=== PATIENT | female | born 1970 | race Caucasian/White ===

== ENCOUNTER 2017-04-13 12:21 | Inpatient (IN) | payer MEDICARE, BC ==
[~2017-04-13] VITALS: Ht 177.8 cm; Wt 90.2 kg
[2017-04-13] MEDS ORDERED: ONDANSETRON 4 MG TAB (S0181) PO PRN (13:15)
[2017-04-13 15:00] VITALS: BP 155/81
[2017-04-13 15:21] LABS: BASO % 0.7 % (0.0-1.0); EOS # 0.2 K/mm3 (0.0-0.50); EOS % 2.6 % (0.0-3.0); LARGE UNSTAINED CELL # 0.1 K/mm3 (0.0-0.4); LARGE UNSTAINED CELL % 1.7 % (0.0-4.0); LYMPH # 0.8 K/mm3 (1.5-4.5); LYMPH % 11.5 % (24.0-44.0); MEAN CORPUSCULAR HEMOGLOBIN 29.9 pg (27.0-33.0); MEAN CORPUSCULAR HGB CONC 32.3 g/dl (32.0-36.5); MEAN CORPUSCULAR VOLUME 92.6 fl (80.0-96.0); MONO # 0.3 K/mm3 (0.0-0.8); MONO % 5.1 % (0.0-5.0); NEUTROPHILS % 78.4 % (36.0-66.0); PLATELET COUNT, AUTOMATED 150 k/mm3 (150-450); WHITE BLOOD COUNT 6.4 K/mm3 (4.0-10.0)
[2017-04-13 15:31] LABS: ALBUMIN 3.2 GM/DL (3.2-5.2); ALBUMIN/GLOBULIN RATIO 0.57 (1.00-1.93); BILIRUBIN,TOTAL 0.4 MG/DL (0.2-1.0); CALCIUM LEVEL 10.7 MG/DL (8.5-10.1); CREATININE FOR GFR 4.5 MG/DL (0.55-1.02); GLOMERULAR FILTRATION RATE 11.1 (>58); POTASSIUM SERUM 3.6 MEQ/L (3.5-5.1); TOTAL PROTEIN 8.8 GM/DL (6.4-8.2)
[2017-04-13] MEDS ORDERED: SENS90TA PO (15:59)
[2017-04-13] MEDS ORDERED: MIRA3350 PO (15:59)
[2017-04-13] MEDS ORDERED: DRIS50002 PO (15:59)
[2017-04-13] MEDS ORDERED: FOLI1TAB2 PO (15:59)
[2017-04-13] MEDS ORDERED: XANA0.25 PO (15:59)
[2017-04-13] MEDS ORDERED: MIDO5TA PO (15:59)
[2017-04-13] MEDS ORDERED: FOSR1000 PO (15:59)
[2017-04-13] MEDS ORDERED: SODI15SS PO (15:59)
[2017-04-13] MEDS ORDERED: COUM2TAB10 PO (15:59)
[2017-04-13] MEDS ORDERED: ACET50TAOT PO (15:59)
[2017-04-13] MEDS ORDERED: LIDO5DIS36 TD (15:59)
[2017-04-13] MEDS ORDERED: TRAZ100T4 PO (15:59)
[2017-04-13] MEDS ORDERED: COLA100C3 PO (15:59)
[2017-04-13] MEDS ORDERED: VELP5CHW PO (15:59)
[2017-04-13] MEDS ORDERED: GABA-279 PO (15:59)
[2017-04-13] MEDS ORDERED: OXYC30TA84 PO (15:59)
[2017-04-13] MEDS ORDERED: MUPI2OI EXT (15:59)
[2017-04-13] MEDS ORDERED: ACETAMINOPHEN 500 MG TAB PO PRN (16:30)
[2017-04-13] MEDS ORDERED: oxyCODONE 5MG TAB PO PRN (16:30)
[2017-04-13] MEDS: oxyCODONE 5MG TAB PO SCH ×2 (16:38→21:38)
[2017-04-13] MEDS: ALPRAZolam 0.25 MG TAB PO SCH ×2 (16:38→21:38)
[2017-04-13] MEDS: ACETAMINOPHEN 500 MG TAB PO SCH ×2 (16:39→21:38)
[2017-04-13] MEDS: **NOTE PATIENT COMMENT** MISC XX SCH (21:00)
[2017-04-13] MEDS: GABAPENTIN 100 MG CAP PO SCH (21:00)
[2017-04-13] MEDS: CINACALCET 30 MG TAB (SENSIPAR) PO SCH (21:00)
[2017-04-13] MEDS: traZODone 100 MG TAB PO SCH (21:00)
[2017-04-13 22:00] VITALS: BP 145/77
[2017-04-13] MEDS ORDERED: MUPIROCIN 2% OINT 22 GM TUBE TOP PRN (22:15)
[2017-04-13] MEDS ORDERED: MIRALAX *UNIT DOSE* 17GM PACKET PO PRN (22:15)
[2017-04-13] MEDS ORDERED: traZODone 100 MG TAB PO PRN (22:15)
[2017-04-14 06:00] VITALS: BP 115/60
[2017-04-14] MEDS: oxyCODONE 5MG TAB PO SCH ×3 (06:12→18:40)
[2017-04-14] MEDS: ACETAMINOPHEN 500 MG TAB PO SCH ×3 (06:13→18:39)
[2017-04-14] MEDS: ALPRAZolam 0.25 MG TAB PO SCH ×3 (06:13→18:39)
[2017-04-14] MEDS: SUCROFERRIC OXYHYDROXIDE 500MG CHEW TAB (VELPHORO) PO SCH ×3 (07:58→21:00)
[2017-04-14] MEDS: LANTHANUM CARBONATE 500 MG CHEW TABLET PO SCH ×3 (07:58→21:00)
[2017-04-14] MEDS: LIDOCAINE 5% (LIDODERM) PATCH TD SCH (08:39)
[2017-04-14] MEDS: GABAPENTIN 100 MG CAP PO SCH ×2 (09:00→21:02)
[2017-04-14] MEDS: FOLIC ACID 1 MG TAB PO SCH (09:00)
[2017-04-14] MEDS ORDERED: GABAPENTIN 100 MG CAP PO SCH (09:00)
[2017-04-14] MEDS: DOCUSATE SODIUM 100 MG CAP PO SCH (09:00)
[2017-04-14 14:00] VITALS: BP 159/77
[2017-04-14] MEDS ORDERED: BUPIVACAINE HCL 0.5% 30 ML VIAL As Ordered ONE (14:49)
[2017-04-14] MEDS ORDERED: LIDOCAINE 1% SDV INJ 30 ML VIAL As Ordered ONE (14:49)
[2017-04-14] MEDS ORDERED: MIDAZOLAM INJ 2 MG/2 ML VIAL (J2250) As Ordered ONE ×2 (16:27→17:24)
[2017-04-14] MEDS ORDERED: PROPOFOL 200 MG/20 ML VIAL As Ordered ONE (16:27)
[2017-04-14] MEDS ORDERED: ONDANSETRON 4MG/2ML VIAL (J2405) As Ordered ONE (16:27)
[2017-04-14] MEDS ORDERED: fentaNYL 100 MCG/2 ML INJECTION (J3010) As Ordered ONE ×3 (16:27→17:24)
[2017-04-14] MEDS ORDERED: LIDOCAINE 2% INJ 100 MG/5 ML SDV (FOR ANES.) As Ordered ONE (16:27)
[2017-04-14] MEDS: NS 1,000 ML IV SCH ×2 (16:32→17:15)
[2017-04-14] MEDS: fentaNYL 100 MCG/2 ML INJECTION (J3010) IV PRN ×4 (16:35→16:50)
[2017-04-14] MEDS ORDERED: VANCOMYCIN HCL 1,000 MG, VIAL MATE ADAPTER 1 EACH in D5W 250 ML IV SCH (16:45)
[2017-04-14] MEDS ORDERED: HYDROmorphone HCL 1 MG/ML SYRINGE (J1170) As Ordered ONE (16:58)
[2017-04-14] MEDS ORDERED: oxyCODONE 5MG TAB As Ordered ONE ×2 (16:58→17:20)
[2017-04-14] MEDS: HYDROmorphone HCL 1 MG/ML SYRINGE (J1170) IV PRN ×5 (17:00→17:20)
[2017-04-14] MEDS: oxyCODONE 5MG TAB PO PRN ×2 (17:00→17:20)
[2017-04-14] MEDS ORDERED: ONDANSETRON 4MG/2ML VIAL (J2405) IV PRN (17:15)
[2017-04-14 18:30] VITALS: BP 148/67
[2017-04-14] MEDS: **NOTE PATIENT COMMENT** MISC XX SCH (21:00)
[2017-04-14] MEDS: traZODone 100 MG TAB PO SCH (21:02)
[2017-04-14 22:00] VITALS: BP 119/70
[2017-04-14] MEDS: NORCO, ANEXSIA 5/325MG TABLET (HYDROcodone/ACETAMINOPHEN) PO PRN (23:53)
[2017-04-15 06:00] VITALS: BP 116/63
[2017-04-15] MEDS: ALPRAZolam 0.25 MG TAB PO SCH ×3 (06:16→20:38)
[2017-04-15] MEDS: ACETAMINOPHEN 500 MG TAB PO SCH ×3 (06:16→20:38)
[2017-04-15] MEDS: oxyCODONE 5MG TAB PO SCH ×3 (06:17→20:41)
[2017-04-15] MEDS ORDERED: MIDODRINE 5 MG TAB PO SCH (08:00)
[2017-04-15] MEDS: GABAPENTIN 100 MG CAP PO SCH ×2 (08:18→20:37)
[2017-04-15] MEDS: DOCUSATE SODIUM 100 MG CAP PO SCH (08:18)
[2017-04-15] MEDS: FOLIC ACID 1 MG TAB PO SCH (08:18)
[2017-04-15] MEDS: LIDOCAINE 5% (LIDODERM) PATCH TD SCH (08:20)
[2017-04-15] MEDS: LANTHANUM CARBONATE 500 MG CHEW TABLET PO SCH ×3 (08:21→20:42)
[2017-04-15] MEDS: SUCROFERRIC OXYHYDROXIDE 500MG CHEW TAB (VELPHORO) PO SCH ×3 (09:00→20:41)
[2017-04-15 10:11] LABS: BASO # 0.1 K/mm3 (0.0-0.2); BASO % 0.9 % (0.0-1.0); EOS # 0.3 K/mm3 (0.0-0.50); EOS % 4.1 % (0.0-3.0); LARGE UNSTAINED CELL # 0.1 K/mm3 (0.0-0.4); LARGE UNSTAINED CELL % 1.4 % (0.0-4.0); LYMPH # 0.7 K/mm3 (1.5-4.5); LYMPH % 11.1 % (24.0-44.0); MEAN CORPUSCULAR HEMOGLOBIN 30.1 pg (27.0-33.0); MEAN CORPUSCULAR VOLUME 91.1 fl (80.0-96.0); MONO # 0.3 K/mm3 (0.0-0.8); MONO % 4.2 % (0.0-5.0); NEUTROPHILS % 78.3 % (36.0-66.0); PLATELET COUNT, AUTOMATED 152 k/mm3 (150-450); RED CELL DISTRIBUTION WIDTH 14.7 % (11.5-14.5); WHITE BLOOD COUNT 6.3 K/mm3 (4.0-10.0)
[2017-04-15 11:21] LABS: ALBUMIN 2.6 GM/DL (3.2-5.2); CALCIUM LEVEL 9.9 MG/DL (8.5-10.1); CREATININE FOR GFR 7.63 MG/DL (0.55-1.02); PHOSPHORUS LEVEL 6.3 MG/DL (2.5-4.9); POTASSIUM SERUM 4.3 MEQ/L (3.5-5.1)
[2017-04-15] MEDS: NORCO, ANEXSIA 5/325MG TABLET (HYDROcodone/ACETAMINOPHEN) PO PRN (11:41)
[2017-04-15] MEDS ORDERED: HEPARIN 1,000 UNITS/ML 10ML VIAL (FOR RADIOLOGY& DIALYSIS ONLY) IV ONE (11:45)
[2017-04-15] MEDS: NS 1,000 ML IV SCH ×2 (13:15→17:15)
[2017-04-15 14:00] VITALS: BP 142/76
[2017-04-15] MEDS ORDERED: CHECK TO SEE IF PATIENT IS RECEIVING DIALYSIS TODAY AND REFER TO THE VANCOMYCIN ORDER XX SCH (16:00)
[2017-04-15] MEDS: traZODone 100 MG TAB PO SCH (20:37)
[2017-04-15] MEDS: CINACALCET 30 MG TAB (SENSIPAR) PO SCH (20:38)
[2017-04-15] MEDS: **NOTE PATIENT COMMENT** MISC XX SCH (20:56)
[2017-04-15 22:00] VITALS: BP 134/70
[2017-04-16] MEDS: ALPRAZolam 0.25 MG TAB PO SCH (05:42)
[2017-04-16] MEDS: ACETAMINOPHEN 500 MG TAB PO SCH (05:42)
[2017-04-16] MEDS: oxyCODONE 5MG TAB PO SCH (05:43)
[2017-04-16 06:00] VITALS: BP 125/65
[2017-04-16] MEDS: LANTHANUM CARBONATE 500 MG CHEW TABLET PO SCH (09:00)
[2017-04-16] MEDS: LIDOCAINE 5% (LIDODERM) PATCH TD SCH (09:00)
[2017-04-16] MEDS: SUCROFERRIC OXYHYDROXIDE 500MG CHEW TAB (VELPHORO) PO SCH (09:00)
[2017-04-16] MEDS: GABAPENTIN 100 MG CAP PO SCH (09:01)
[2017-04-16] MEDS: DOCUSATE SODIUM 100 MG CAP PO SCH (09:01)
[2017-04-16] MEDS: NORCO, ANEXSIA 5/325MG TABLET (HYDROcodone/ACETAMINOPHEN) PO PRN (09:01)
[2017-04-16] MEDS: FOLIC ACID 1 MG TAB PO SCH (09:01)
[2017-04-16] MEDS ORDERED: VANC1VLAD INJ (10:43)
[2017-04-16] MEDS ORDERED: VANC1INJ IV (10:43)
[2017-04-19] MEDS ORDERED: VITAMIN D 50,000 UNITS CAPSULE (ERGOCALCIFEROL 1.25MG) PO SCH (09:00)
== END 2017-04-16 11:55 | disposition home or self-care (01) | DRG 264 ==
LOC: M MS5PR 14:37 → INTOOBSV 14:37 → OBSVTOIN 04-15 14:10
PROVIDERS: ADMIT Surgery Vascular Surgery; ATTEND Surgery Vascular Surgery
PROC: 0JBD0ZZ Excision of Right Upper Arm Subcutaneous Tissue and Fascia, Open Approach (ICD-10-PCS; 2017-04-14)
PROC: 03PY0JZ Removal of Synthetic Substitute from Upper Artery, Open Approach (ICD-10-PCS; principal; 2017-04-14 13:00)
PROC: 5A1D60Z (ICD-10-PCS; 2017-04-15)
DX: T82.7XXA Infection and inflammatory reaction due to other cardiac and vascular devices, implants and grafts, initial encounter (principal); N18.6 End stage renal disease; I12.0 Hypertensive chronic kidney disease with stage 5 chronic kidney disease or end stage renal disease; N25.81 Secondary hyperparathyroidism of renal origin; L03.113 Cellulitis of right upper limb; D63.1 Anemia in chronic kidney disease; I95.89 Other hypotension; G89.4 Chronic pain syndrome; B95.61 Methicillin susceptible Staphylococcus aureus infection as the cause of diseases classified elsewhere; E66.9 Obesity, unspecified; Z87.891 Personal history of nicotine dependence; Z88.5 Allergy status to narcotic agent; Z99.2 Dependence on renal dialysis; Z79.01 Long term (current) use of anticoagulants; Z79.899 Other long term (current) drug therapy; Z79.891 Long term (current) use of opiate analgesic

== ENCOUNTER → 2017-05-14 | Outpatient (CLI) | payer MEDICARE, BC ==
[~2017-05-14] MED LIST: ACET50TAOT PO; COLA100C5 PO; COUM2TAB22 PO; DRIS50002 PO; FOLI1TAB4 PO; FOSR1000 PO; GABA-279 PO; LIDO5DIS41 TD; MIDO5TA PO; MIRA3350 PO; MUPI2OI EXT; OXYC30TA84 PO; SENS90TA PO; SODI15SS PO; TRAZ-136 PO; VANC1INJ IV; VANC1VLAD INJ; VELP5CHW PO; XANA0.25 PO
--- NOTE | 2017-05-14 13:45 | REP ---
ARTERIAL AND VENOUS ULTRASOUND BILATERAL UPPER EXTREMITIES: HISTORY: Renal failure. Bilateral upper extremity vein mapping and arterial analysis for arteriovenous fistula planning. The patient is status post recent removal of a right upper extremity graft. There are two thrombosed grafts in the left upper extremity. FINDINGS: There is no evidence of intravascular venous thrombosis in the subclavian, brachial, basilic, cephalic veins of either upper extremity on two-dimensional and color Doppler interrogation. There is a soft tissue tract in the right upper extremity which extends into the right axillary vein region related to the recently removed right upper extremity graft. There is some thrombus along this tract just outside of the axillary vein but no intravenous thrombus is seen. There is questionable thrombus in the cephalic vein at the antecubital fossa and upper forearm on the right. The right cephalic vein measures 2.8 mm at the upper humerus where as the left measures 1.2 mm. The left basilic vein measures 4.1 mm proximally to 2.0 mm at the antecubital fossa and 0.8 mm in the forearm. Two thrombosed grafts are seen in the left forearm. A normal triphasic arterial flow is seen in the right axillary and right brachial arteries. The axillary artery is 5-9 mm and the brachial artery is 6 mm in diameter. Peak systolic flow velocity is 39 cm/s in the axillary and 29 cm/s in the brachial on the right side. On the left side normal triphasic flow is seen in the axillary, brachial, radial and ulnar arteries. Axillary artery peak systolic flow velocity is 57 cm/s, brachial is 62.8 cm/s, radial 32.3 and ulnar 18.4 cm/sec. Axillary artery measures 4.4 mm, brachial artery 3.7, radial 2.2 and ulnar 1.8 mm. IMPRESSION: Chronic changes suspected in the left cephalic vein with slow flow and some wall thickening. No venous thrombosis seen. Soft tissue tract noted related to the recently removed right upper arm shunt. Thrombosed shunts seen on the left. Signed by Leonel Farris MD 05/14/2017 05:12 P
== END ==
LOC: M RAD 06:45
PROVIDERS: ATTEND Surgery Vascular Surgery
DX: T82.868A Thrombosis due to vascular prosthetic devices, implants and grafts, initial encounter (principal); Y83.1 Surgical operation with implant of artificial internal device as the cause of abnormal reaction of the patient, or of later complication, without mention of misadventure at the time of the procedure; N18.6 End stage renal disease

== ENCOUNTER → 2017-05-26 | Day surgery (SDC) | payer MEDICARE, BC ==
[~2017-05-26] VITALS: Ht 177.8 cm; Wt 83.9 kg
[~2017-05-26] MED LIST changes: +BUPIVACAINE HCL 0.25% 30 ML VIAL As Ordered ONE; +BUPIVACAINE HCL 0.5% 30 ML VIAL As Ordered ONE; +D5W/0.2% SODIUM CHLORIDE 250 ML IV ONE; +D5W/0.9% SODIUM CHLORIDE 1,000 ML IV SCH; +HEPARIN SOD (PORCINE) 5000 UNITS/ML VIAL As Ordered ONE; +ISOVUE-300 61% 50ML VIAL (Q9967) As Ordered ONE; +LIDOCAINE 1% SDV INJ 30 ML VIAL As Ordered ONE; +LIDOCAINE 2% INJ 100 MG/5 ML SDV (FOR ANES.) As Ordered ONE; +MIDAZOLAM INJ 2 MG/2 ML VIAL (J2250) As Ordered ONE; +ONDANSETRON 4MG/2ML VIAL (J2405) As Ordered ONE; +PHENYLephrine HCL 500 MCG/5 ML (100MCG/ML) SYRINGE (J2370) As Ordered ONE; +PROPOFOL 200 MG/20 ML VIAL As Ordered ONE; +THROMBIN SOLN 20,000 UNITS KIT As Ordered ONE; +fentaNYL 250 MCG/5 ML INJECTION (J3010) As Ordered ONE
[2017-05-26 12:36] LABS: INR 1.64
[2017-05-26 16:00] VITALS: BP 149/76
--- NOTE | 2017-05-27 15:19 | ECGEPIP ---
Stationary ECG Study [facility] Test Date: 2017-05-26 Pat Name: FLOERNTIN BAL Department: Room: - Gender: F Legislative Correspondent: : 1970 Requested By: Lynn Meredith Order Number: [id number] Reading MD: Moses Penny Measurements Intervals [place] Rate: 80 P: 57 ID: [id number] QRS: 41 QRSD: 93 T: 41 QT: 378 QTc: 438 Interpretive Statements SINUS RHYTHM WITH FIRST DEGREE AV BLOCK No prior ECG available for comparison at the time of interpretation. Electronically Signed On 05-27-2017 15:19:17 EDT by Moses Penny
--- NOTE | 2017-06-22 17:34 | RO ---
DATE OF PROCEDURE: 05/26/2017 PREPROCEDURE DIAGNOSIS: End-stage renal disease. POSTPROCEDURE DIAGNOSIS: End-stage renal disease PROCEDURE: Left brachial artery exploration, left cephalic vein exploration at the antecubital fossa, left radiocephalic arteriovenous fistula formation. SURGEON: Dr. María Gunderson CLOUD PHYSICIST: None. ANESTHESIA: Local MAC. ESTIMATED BLOOD LOSS: 25 mL. IV FLUID: 200 mL HEPARIN: None. COMPLICATIONS: None. INDICATION: The patient is a 46-year-old female with multiple accesses created in the upper extremities bilaterally, who requires access for hemodialysis and now current dialyzes through a right internal jugular vein PermCath. The patient underwent ultrasound, which showed the cephalic vein in the left upper arm and forearm to be patent. The patient will undergo a left brachiocephalic arteriovenous fistula. Risks, benefits and alternative treatment options were discussed with the patient. Alternative treatment options included but were not limited to no intervention. Benefits included but were not limited to conversion from PermCath to arteriovenous fistula usage with reduction of risks of PermCath. Risks included but were not limited to infection, bleeding, failure of arteriovenous fistula to maintain patency with thrombosis, failure of arteriovenous fistula to mature requiring secondary intervention, cerebrovascular accident, myocardial infarction, steal syndrome, pulmonary embolus, deep vein thrombosis (DVT), loss of limb, loss of life and poor outcome. The patient understands, accepts these risks and consents to proceed. DESCRIPTION OF PROCEDURE: The patient was taken to the operating room, placed supine on the operating room table and the left upper extremity was prepped and draped in a standard surgical fashion. A surgical time-out was completed with myself and all the members in the room, confirming the correct patient, laterality and procedure. The skin overlying the brachial artery and cephalic vein at the antecubital fossa were then anesthetized with 1% lidocaine mixed with half percent Marcaine. An incision was made transversely, and the brachial artery and cephalic vein were explored. There had been a previous left brachiocephalic arteriovenous fistula and the cephalic vein was sclerotic and unusable for access creation. A tourniquet had been applied to evaluate the cephalic vein, and there was a cephalic vein at the wrist which was patent but small in size. An incision was then made at the wrist with two incisions made, one over the cephalic vein, one over the radial artery. Both were dissected free. The cephalic vein was transected as far distal as possible and dilated with heparinized saline, brought through a tunnel between the two incisions and anastomosed to the radial artery in an end-to-side fashion. There was good flow in the fistula at the completion of the anastomosis. The incisions were then closed using #2-0 Vicryl to approximate the deeper layers and #3-0 Monocryl to approximate the skin in a running subcuticular fashion. Steri-Strips and dressings were applied. The patient tolerated the procedure well. All instrument, sponge and needle counts were correct at the end of the case. There were no complications. Dr. Gunderson was present for and directed the entire case. The patient was transferred to the recovery room awake, alert, extubated and in stable condition.
== END | disposition home or self-care (01) ==
LOC: M SDC 11:48
PROVIDERS: ATTEND Surgery Vascular Surgery
DX: N18.6 End stage renal disease (principal); I12.0 Hypertensive chronic kidney disease with stage 5 chronic kidney disease or end stage renal disease; E11.22 Type 2 diabetes mellitus with diabetic chronic kidney disease; I25.10 Atherosclerotic heart disease of native coronary artery without angina pectoris; Z88.5 Allergy status to narcotic agent; Z79.899 Other long term (current) drug therapy; Z79.01 Long term (current) use of anticoagulants; Z86.14 Personal history of Methicillin resistant Staphylococcus aureus infection
CPT/HCPCS: 36415; 36825; 84132; 85610; 93005; J2250; J2370; J2405; J3010

== ENCOUNTER 2017-06-10 08:20 | Day surgery (SDC) | payer MEDICARE, BC ==
[~2017-06-10] VITALS: Ht 177.8 cm; Wt 84.0 kg
[~2017-06-10 08:20] MED LIST changes: -BUPIVACAINE HCL 0.25% 30 ML VIAL As Ordered ONE; -BUPIVACAINE HCL 0.5% 30 ML VIAL As Ordered ONE; -D5W/0.2% SODIUM CHLORIDE 250 ML IV ONE; -D5W/0.9% SODIUM CHLORIDE 1,000 ML IV SCH; -HEPARIN SOD (PORCINE) 5000 UNITS/ML VIAL As Ordered ONE; -ISOVUE-300 61% 50ML VIAL (Q9967) As Ordered ONE; -LIDOCAINE 1% SDV INJ 30 ML VIAL As Ordered ONE; -LIDOCAINE 2% INJ 100 MG/5 ML SDV (FOR ANES.) As Ordered ONE; -MIDAZOLAM INJ 2 MG/2 ML VIAL (J2250) As Ordered ONE; -ONDANSETRON 4MG/2ML VIAL (J2405) As Ordered ONE; -PHENYLephrine HCL 500 MCG/5 ML (100MCG/ML) SYRINGE (J2370) As Ordered ONE; -PROPOFOL 200 MG/20 ML VIAL As Ordered ONE; -THROMBIN SOLN 20,000 UNITS KIT As Ordered ONE; -fentaNYL 250 MCG/5 ML INJECTION (J3010) As Ordered ONE
[2017-06-10] MEDS ORDERED: LIDOCAINE 1% MDV 20ML VIAL SQ ONE (08:30)
[2017-06-10] MEDS ORDERED: LR 1,000 ML IV ONE (08:30)
[2017-06-10] MEDS ORDERED: LIDOCAINE 5% (LIDODERM) PATCH TD PRN (09:00)
[2017-06-10] MEDS ORDERED: D5W/0.2% SODIUM CHLORIDE 250 ML IV ONE (09:00)
[2017-06-10] MEDS ORDERED: SOD POLYSTYRENE SULFONATE SUSP 15 GM/60 ML UD PO PRN (09:00)
[2017-06-10 09:55] LABS: INR 1.55
[2017-06-10] MEDS ORDERED: PROPOFOL 200 MG/20 ML VIAL As Ordered ONE (10:03)
[2017-06-10] MEDS ORDERED: fentaNYL 100 MCG/2 ML INJECTION (J3010) As Ordered ONE (10:03)
[2017-06-10] MEDS ORDERED: MIDAZOLAM INJ 2 MG/2 ML VIAL (J2250) As Ordered ONE ×2 (10:03→11:43)
[2017-06-10] MEDS ORDERED: LIDOCAINE 2% INJ 100 MG/5 ML SDV (FOR ANES.) As Ordered ONE (10:03)
[2017-06-10] MEDS ORDERED: KETAMINE HCL 200 MG/20 ML VIAL As Ordered ONE (11:31)
[2017-06-10] MEDS ORDERED: BUPIVACAINE HCL 0.5% 30 ML VIAL As Ordered ONE (11:38)
[2017-06-10] MEDS ORDERED: PHENYLephrine HCL 500 MCG/5 ML (100MCG/ML) SYRINGE (J2370) As Ordered ONE (11:38)
[2017-06-10] MEDS ORDERED: LIDOCAINE 1% SDV INJ 30 ML VIAL As Ordered ONE (11:38)
[2017-06-10] MEDS ORDERED: ONDANSETRON 4MG/2ML VIAL (J2405) As Ordered ONE (11:55)
[2017-06-10] MEDS ORDERED: D5W/0.2% SODIUM CHLORIDE 1,000 ML IV SCH (12:30)
[2017-06-10] MEDS ORDERED: ONDANSETRON 4MG/2ML VIAL (J2405) IV PRN (12:30)
[2017-06-10 13:31] LABS: MEAN CORPUSCULAR HEMOGLOBIN 30.5 pg (27.0-33.0); MEAN CORPUSCULAR HGB CONC 33.2 g/dl (32.0-36.5); WHITE BLOOD COUNT 4.6 K/mm3 (4.0-10.0)
[2017-06-10 14:24] LABS: CREATININE FOR GFR 8.05 MG/DL (0.55-1.02); GLOMERULAR FILTRATION RATE 5.7 (>58)
[2017-06-10 14:25] LABS: CALCIUM LEVEL 8.1 MG/DL (8.5-10.1); PHOSPHORUS LEVEL 7.2 MG/DL (2.5-4.9); POTASSIUM SERUM 5.6 MEQ/L (3.5-5.1)
[2017-06-10] MEDS ORDERED: HEPARIN 1,000 UNITS/ML 10ML VIAL (FOR RADIOLOGY& DIALYSIS ONLY) IV ONE (16:00)
[2017-06-10 16:45] VITALS: BP 175/73
[2017-06-10] MEDS: DOCUSATE SODIUM 100 MG CAP PO SCH (16:59)
[2017-06-10] MEDS: NS 1,000 ML IV SCH (17:00)
[2017-06-10] MEDS: FOLIC ACID 1 MG TAB PO SCH (17:00)
[2017-06-10] MEDS: ALPRAZolam 0.25 MG TAB PO SCH ×2 (17:05→22:59)
[2017-06-10] MEDS: ACETAMINOPHEN 500 MG TAB PO SCH ×2 (17:05→21:27)
[2017-06-10] MEDS: oxyCODONE 5MG TAB PO SCH ×2 (17:06→22:59)
[2017-06-10] MEDS ORDERED: traZODone 100 MG TAB PO SCH (21:00)
[2017-06-10] MEDS ORDERED: WARFARIN SOD 2 MG TAB PO SCH (21:00)
[2017-06-10] MEDS ORDERED: **NOTE PATIENT COMMENT** MISC XX SCH (21:00)
[2017-06-10] MEDS: GABAPENTIN 100 MG CAP PO SCH (21:27)
[2017-06-10 22:00] VITALS: BP 123/86
[2017-06-11] VITALS: BP 143/74
[2017-06-11] MEDS: ALPRAZolam 0.25 MG TAB PO SCH (06:22)
[2017-06-11] MEDS: oxyCODONE 5MG TAB PO SCH (06:23)
[2017-06-11] MEDS: NS 1,000 ML IV SCH (08:30)
[2017-06-11] MEDS: GABAPENTIN 100 MG CAP PO SCH (08:43)
[2017-06-11] MEDS: LANTHANUM CARBONATE 500 MG CHEW TABLET PO SCH ×3 (08:43→12:40)
[2017-06-11] MEDS: ACETAMINOPHEN 500 MG TAB PO SCH (08:43)
[2017-06-11] MEDS: DOCUSATE SODIUM 100 MG CAP PO SCH (08:43)
[2017-06-11] MEDS: FOLIC ACID 1 MG TAB PO SCH (08:43)
--- NOTE | 2017-06-11 16:45 | CR ---
DATE OF CONSULTATION: 06/10/2017 REFERRING PHYSICIAN: Yash Gunderson MD. REASON FOR CONSULTATION: This to assist in the management of end-stage renal disease and hyperkalemia. HISTORY OF PRESENT ILLNESS: Ms. Zheng is a 46-year-old female with known history of end-stage renal disease requiring maintenance hemodialysis. She has history of prior arteriovenous (AV) graft in her right arm which has been infected. She was taken to operating room (OR) today and a piece of graft was removed. Following that, she has been admitted due to suspected sepsis and nephrology consultation was requested as the patient is due for dialysis and is in need for dialysis today. PAST MEDICAL AND SURGICAL HISTORY: Significant for: 1. Longstanding history of hypertension. 2. End-stage renal disease requiring maintenance hemodialysis. 3. History of severe hyperparathyroidism. 4. Hyperlipidemia. 5. History of hypercoagulability and recurrent clotting of AV access. 6. History of severe degenerative arthritis. 7. History of renal osteodystrophy. PAST SURGICAL HISTORY Significant for: 1. Tonsillectomy, adenoidectomy, section, right arm AV graft in the past and left arm AV fistula recently. 2. Partial parathyroidectomy. FAMILY HISTORY: There is no family history for end-stage renal disease. ALLERGIES: The patient has allergy to CODEINE. MEDICATIONS Her home medications include: - Xanax 0.25 mg every eight hours for anxiety - Sensipar 90 mg daily - Colace 100 mg daily - folic acid 1 mg daily - gabapentin 100 mg twice a day - Fosrenol 1 gram three times a day - midodrine 5 mg before dialysis - oxycodone 30 mg every eight hours as needed for pain - Zofran 4 mg as needed for nausea - Velphoro 1 gram three times a day - trazodone 100 mg at bedtime - vitamin D 50,000 units once a week REVIEW OF SYSTEMS: The patient denies any fever or chills. I have seen her just after the surgery. She denies any dyspnea or chest pain. Ears, nose and throat are unremarkable. Cardiovascular system is negative for chest pain, palpitations or dyspnea. Respiratory system is negative for cough or hemoptysis. Gastrointestinal (GI) system is negative for nausea, vomiting or diarrhea. Genitourinary () system is negative for dysuria or hematuria. She has minimal urine output. Endocrine system is negative for diabetes or thyroid problems. She has history of severe secondary hyperparathyroidism. Neurological system is significant for severe peripheral neuropathy. Psychosocial system is significant for depression and anxiety. Musculoskeletal system is significant for disabling renal osteodystrophy and degenerative arthritis. Hematological system is significant for chronic anticoagulation due to hypercoagulable state. PHYSICAL EXAMINATION: GENERAL: The patient is awake and alert at the time of my visit. I have seen her in dialysis room. VITAL SIGNS: Temperature is 97.7 degrees Fahrenheit, heart rate 62 per minute and respiratory rate 18 per minute. Blood pressure 94/61 mmHg and oxygen saturation 98% on room air. HEAD/NECK: Head is atraumatic. Neck is supple and without jugular venous distention (JVD). Thyroid is not enlarged. Pupils are equal and reactive to light. Conjunctivae are somewhat red bilaterally. CARDIAC: Heart sounds are regular. RESPIRATORY: Lungs with good bilateral air entry and no wheezing or rales. ABDOMEN: Soft with large area of subcutaneous calcification. Bowel sounds are normal and there is no palpable organomegaly. EXTREMITIES: Have no cyanosis or clubbing. Right arm is wrapped in dressing. NEUROLOGIC: She is awake, alert and oriented times three. LABORATORY DATA: This morning she had only potassium level drawn which was 5.4 prior to surgery. INR was 1.55. We anup her labs at the start of dialysis, and sodium level is 131, potassium 5.6, BUN 41 and creatinine 8.0. Calcium level 8.1 and phosphorus 7.2. WBC count 4.6, hemoglobin 9.9 and hematocrit 29.7. PROBLEM S: 1. End-stage renal disease. The patient is regularly dialyzed on Wednesday, and Wednesday schedule. She was last dialyzed on Wednesday and we are dialyzing her again today. She is tolerating her dialysis. 2. Hyperkalemia. The patient is being dialyzed with 2.0 mEq potassium bath and it will correct her hyperkalemia. 3. Hyponatremia. This is related to end-stage renal disease and this will also correct with hemodialysis today. We are removing about two liters of fluid as tolerated. 4. Hyperphosphatemia. This a chronic issue related to severe hyperparathyroidism and dietary noncompliance. We will continue with her chronic phosphate binders and place her on 2 gram phosphorus diet. 5. Anemia. Anemia is related to end-stage renal disease. At this point, she does not need any urgent intervention. We will treat her with Aranesp as indicated. 6. Hypotension. She does have chronic hypotension for which she has been using midodrine 5 mg before dialysis. Resume midodrine 5 mg before each dialysis. I thank you for involving me in the care of Ms. Zheng. I will follow her along with you.
--- NOTE | 2017-06-11 19:24 | IPN ---
DATE: 06/11/2017 Ms Zheng is seen this morning on her bedside. She underwent hemodialysis yesterday, which she tolerated very well. She is feeling this morning very well and denies any dyspnea, chest pain, nausea, vomiting, fever or chills. She underwent surgery on her right arm with infected piece of old hemodialysis graft was removed. PHYSICAL EXAMINATION: This morning temperature is 97.5 degrees Fahrenheit, heart rate 62 per minute and respiratory rate 16 per minute. Blood pressure 143/74 mmHg and oxygen saturations 100% on room air. Her head is atraumatic. Neck is supple and without jugular venous distention (JVD) or thyroid enlargement. Dialysis catheter is intact without any signs of infection. Heart: Sounds are regular and lungs clear to auscultation. Abdomen: Soft and benign. Extremities: Without cyanosis or clubbing. Right arm is wrapped in Wilfred bandage from wrist to her shoulder. Neurologically she is awake, alert and oriented times three. PROBLEMS: 1. End-stage renal disease. The patient underwent hemodialysis yesterday, which she tolerated very well. Her next dialysis is going to be scheduled for tomorrow. If she is still here, then we will dialyze her here. Otherwise she will go to outpatient dialysis clinic at her regular time if she gets discharged today. 2. Hyperkalemia. She did have dialysis with 2.0 mEq potassium bath yesterday and her potassium level is most likely corrected. We will check her electrolytes this morning. 3. Infected hemodialysis graft in the right arm. This was a piece of old graft, which was removed yesterday by Dr. Gunderson. Her dressing is intact without any bleeding. Dr. Gunderson will open the dressing later today. 4. Hyperphosphatemia. The patient has chronic hyperphosphatemia and I have discussed with her at length again this morning about her risk factors. She understands to follow low phosphorus diet and take her phosphate binders. This will be monitored as an outpatient. 5. Disposition. From renal standpoint, the patient can be discharged to home whenever Dr. Gunderson feels that she is ready for discharge. If she stays until tomorrow, then we will arrange for dialysis here tomorrow. Her other option would be to go to outpatient dialysis clinic tomorrow right from here if she gets discharged tomorrow morning. GUILLAUME
--- NOTE | 2017-06-22 23:41 | RO ---
DATE OF PROCEDURE: 06/10/2017 PREOPERATIVE DIAGNOSIS: End-stage renal disease, infected right upper extremity defunctionalized graft. POSTOPERATIVE DIAGNOSIS: End-stage renal disease, infected right upper extremity defunctionalized graft, plus infected right arm stent previously placed in a defunctionalized graft. PROCEDURE: Incisional debridement with removal of skin subcutaneous tissue and muscle and old stent. SURGEON: Dr. María Gunderson CHIEF EXECUTIVE OR MANAGING DIRECTOR: None. ANESTHESIA: Local MAC. ESTIMATED BLOOD LOSS: 25 mL. IV FLUID: 150 mL. HEPARIN: None. COMPLICATIONS: None. DRAINS: None. SPECIMENS: None. IMPLANTS: None. INDICATION: The patient is a 46-year-old female who presented initially with infection of her right upper extremity and underwent removal of a large portion of the graft from the antecubital fossa to the axillary vein in the upper arm, which has healed up well. The patient has now developed new areas of drainage and infection in the right forearm in the location of the previously placed looped forearm grafts. The patient will undergo removal of the grafts and incision and drainage and debridement of infected tissue. Risks, benefits, and alternative treatment options were discussed with the patient. Alternative treatment options included but were not limited to no intervention. Risks included but were not limited to infection, bleeding, possible need for further open surgical intervention, cerebrovascular accident, myocardial infarction, pulmonary embolus , deep vein thrombosis (DVT), loss of limb, loss of life and poor outcome. Patient understands, accepts these risks and consents to proceed. DESCRIPTION OF PROCEDURE: The patient was taken to the operating room, placed supine on the operating room table and then the right upper extremity was prepped and draped in a standard surgical fashion. A time-out was performed with all the staff in the room confirming the correct procedure, patient and laterality. The areas of the infected tissue and drainage were then opened and underlying this was a previously placed stent. The stent was removed easily and there was no graft material remaining and no communication between the stent and the previously placed looped forearm grafts in the forearm. The stent was a remnant from the previous brachial artery to axillary vein graft in the upper arm. The tissue was then debrided sharply with removal of all nonviable tissue after which the wound was packed with a wet-to-dry dressing. The patient was stable at the completion of the surgery. All instrument, sponge and needle counts were correct at the end of the case. There were no complications. Dr. Gunderson was present for and directed the entire case. The patient was transferred to the recovery room, awake, alert, extubated and in stable condition. GUILLAUME
== END 2017-06-11 13:00 | disposition home or self-care (01) ==
LOC: M SDC 08:20 → EDSTATUS 10:00 → M MS5PR 16:45 → M SDC 06-11 13:00
PROVIDERS: ATTEND Surgery Vascular Surgery
DX: T82.7XXA Infection and inflammatory reaction due to other cardiac and vascular devices, implants and grafts, initial encounter (principal); Y83.1 Surgical operation with implant of artificial internal device as the cause of abnormal reaction of the patient, or of later complication, without mention of misadventure at the time of the procedure; N18.6 End stage renal disease; E87.5 Hyperkalemia; E87.1 Hypo-osmolality and hyponatremia; E21.3 Hyperparathyroidism, unspecified; E78.5 Hyperlipidemia, unspecified; M19.90 Unspecified osteoarthritis, unspecified site; D68.59 Other primary thrombophilia; I12.0 Hypertensive chronic kidney disease with stage 5 chronic kidney disease or end stage renal disease; E11.22 Type 2 diabetes mellitus with diabetic chronic kidney disease; I25.10 Atherosclerotic heart disease of native coronary artery without angina pectoris; Z99.2 Dependence on renal dialysis; Z88.5 Allergy status to narcotic agent; Z79.899 Other long term (current) drug therapy
CPT/HCPCS: 35903; 36415; 80069; 85027; 85610; 87070; 87077; 87186; G0257; J2250; J2370; J2405; J3010

== ENCOUNTER → 2017-06-18 | Outpatient (CLI) | payer MEDICARE, BC ==
[~2017-06-18] MED LIST changes: +HEPARIN 1,000 UNITS/ML 10ML VIAL (FOR RADIOLOGY& DIALYSIS ONLY) As Ordered ONE; +ISOVUE-300 61% 50ML VIAL (Q9967) As Ordered ONE; +MIDAZOLAM INJ 2 MG/2 ML VIAL (J2250) As Ordered ONE; +fentaNYL 100 MCG/2 ML INJECTION (J3010) As Ordered ONE
== END ==
LOC: M RADPRO 07:09
PROVIDERS: ATTEND Surgery Vascular Surgery
DX: N18.6 End stage renal disease (principal); Z53.9 Procedure and treatment not carried out, unspecified reason; I12.0 Hypertensive chronic kidney disease with stage 5 chronic kidney disease or end stage renal disease; I25.10 Atherosclerotic heart disease of native coronary artery without angina pectoris; E11.9 Type 2 diabetes mellitus without complications; E21.2 Other hyperparathyroidism; D68.59 Other primary thrombophilia; G89.4 Chronic pain syndrome; Z87.891 Personal history of nicotine dependence; Z79.891 Long term (current) use of opiate analgesic; Z79.899 Other long term (current) drug therapy; Z79.2 Long term (current) use of antibiotics; Z79.01 Long term (current) use of anticoagulants

== ENCOUNTER → 2017-09-10 | Outpatient (REF) | payer MEDICARE, BC ==
[~2017-09-10] MED LIST changes: +AURY1TAB PO; +ELIQ5TAB PO; +GABA-282 PO; -HEPARIN 1,000 UNITS/ML 10ML VIAL (FOR RADIOLOGY& DIALYSIS ONLY) As Ordered ONE; -ISOVUE-300 61% 50ML VIAL (Q9967) As Ordered ONE; -MIDAZOLAM INJ 2 MG/2 ML VIAL (J2250) As Ordered ONE; -fentaNYL 100 MCG/2 ML INJECTION (J3010) As Ordered ONE
== END ==
LOC: M LAB REF 09:15
PROVIDERS: ATTEND Surgery
DX: L97.911 Non-pressure chronic ulcer of unspecified part of right lower leg limited to breakdown of skin (principal); D23.71 Other benign neoplasm of skin of right lower limb, including hip; E83.59 Other disorders of calcium metabolism

== ENCOUNTER 2017-10-04 10:07 | Observation (INO) | payer MEDICARE, BC ==
[~2017-10-04] VITALS: Ht 177.8 cm; Wt 83.6 kg
[~2017-10-04 10:07] MED LIST changes: -AURY1TAB PO; -ELIQ5TAB PO; -GABA-282 PO
[2017-10-04] MEDS ORDERED: BISACODYL 10 MG SUPP PR PRN (13:00)
[2017-10-04] MEDS ORDERED: MOM 30ML SUSPENSION UDC PO PRN (13:00)
[2017-10-04 14:00] VITALS: BP 161/86
[2017-10-04 14:03] LABS: BASO % 0.4 % (0.0-1.0); EOS % 0.6 % (0.0-3.0); IMMATURE GRANULOCYTE % 0.6 % (0-0); LYMPH # 0.6 10^3/uL (1.5-4.5); LYMPH % 11.4 % (24.0-44.0); MEAN CORPUSCULAR HEMOGLOBIN 28.1 pg (27.0-33.0); MEAN CORPUSCULAR HGB CONC 31.1 g/dl (32.0-36.5); MEAN CORPUSCULAR VOLUME 90.4 fl (80.0-96.0); MONO # 0.2 10^3/uL (0.0-0.8); MONO % 4.5 % (0.0-5.0); NEUTROPHILS % 82.5 % (36.0-66.0); PLATELET COUNT, AUTOMATED 179 10^3/uL (150-450); RED CELL DISTRIBUTION WIDTH 14.6 % (11.5-14.5); WHITE BLOOD COUNT 4.9 10^3/uL (4.0-10.0)
[2017-10-04 14:15] LABS: INR 1.43
[2017-10-04 14:19] LABS: CALCIUM LEVEL 9.8 MG/DL (8.5-10.1); CREATININE FOR GFR 2.58 MG/DL (0.55-1.02); GLOMERULAR FILTRATION RATE 21.1 (>58); POTASSIUM SERUM 3.3 MEQ/L (3.5-5.1)
[2017-10-04] MEDS ORDERED: NALOXONE INJ 0.4 MG/1 ML VIAL (J2310) IV PRN (15:00)
[2017-10-04] MEDS ORDERED: ONDANSETRON 4MG/2ML VIAL (J2405) IV PRN (15:00)
[2017-10-04] MEDS ORDERED: NALBUPHINE HCL 10 MG/ML AMP (J2300) IV PRN (15:00)
[2017-10-04] MEDS ORDERED: EPIDURAL/PCA KEYS XX PRN (15:00)
[2017-10-04] MEDS ORDERED: diphenhydrAMINE INJ 50MG/ML VIAL (J1200) IV PRN (15:00)
[2017-10-04] MEDS ORDERED: GABA-282 PO (16:26)
[2017-10-04] MEDS ORDERED: AURY1TAB PO (16:26)
[2017-10-04] MEDS ORDERED: ELIQ5TAB PO (16:26)
[2017-10-04] MEDS: MORPHINE 1MG/ML IN 0.9% NACL 100ML IV BAG IV PRN (16:52)
[2017-10-04] MEDS: NS 1,000 ML IV SCH (16:52)
[2017-10-04] MEDS: PIPERACILLIN/TAZOBACTAM SOD 3.375 GM in APPROPRIATE DILUENT 1 EA IV SCH (16:52)
[2017-10-04 18:00] VITALS: BP 130/72
[2017-10-04] MEDS: DOCUSATE SODIUM 100 MG CAP PO SCH (21:20)
[2017-10-04] MEDS: SENOKOT S TAB PO SCH (21:20)
[2017-10-04 22:00] VITALS: BP 167/89
[2017-10-04] MEDS: GABAPENTIN 300 MG CAP PO SCH (22:08)
[2017-10-04] MEDS: traZODone 100 MG TAB PO SCH (22:08)
[2017-10-05] VITALS (12 sets, daily range): BP systolic 108–148; BP diastolic 61–90
[2017-10-05] MEDS: PIPERACILLIN/TAZOBACTAM SOD 3.375 GM in APPROPRIATE DILUENT 1 EA IV SCH ×2 (03:44→15:24)
[2017-10-05] MEDS ORDERED: LIDOCAINE 5% (LIDODERM) PATCH TD PRN (09:00)
[2017-10-05] MEDS ORDERED: VITAMIN D 50,000 UNITS CAPSULE (ERGOCALCIFEROL 1.25MG) PO SCH (09:00)
[2017-10-05] MEDS: SENOKOT S TAB PO SCH ×2 (09:16→21:06)
[2017-10-05] MEDS: DOCUSATE SODIUM 100 MG CAP PO SCH ×2 (09:16→21:06)
[2017-10-05] MEDS: GABAPENTIN 300 MG CAP PO SCH ×3 (09:16→21:06)
[2017-10-05] MEDS: MORPHINE 1MG/ML IN 0.9% NACL 100ML IV BAG IV PRN (10:53)
[2017-10-05] MEDS ORDERED: PROTAMINE SULF INJ 50 MG/5 ML VIAL (J2720) As Ordered ONE (12:08)
[2017-10-05] MEDS ORDERED: ISOVUE-300 61% 50ML VIAL (Q9967) As Ordered ONE (12:09)
[2017-10-05] MEDS ORDERED: HEPARIN 1,000 UNITS/ML 10ML VIAL (FOR RADIOLOGY& DIALYSIS ONLY) As Ordered ONE (12:09)
[2017-10-05] MEDS ORDERED: fentaNYL 100 MCG/2 ML INJECTION (J3010) As Ordered ONE ×2 (12:09→13:03)
[2017-10-05] MEDS ORDERED: MIDAZOLAM INJ 2 MG/2 ML VIAL (J2250) As Ordered ONE ×2 (12:09→13:03)
--- NOTE | 2017-10-05 12:50 | HPEPDOC ---
General Date of Admission Oct 04, 2017 at 13:21 Primary Care Physician: Henry Serrano MD Other Providers Dr. Yash Corley Attending Physician: Yash Gunderson MD Chief Complaint The patient is a 46-year-old female with end-stage renal disease and calciphylaxis with a nonhealing wound in the right calf which is exquisitely painful and actually increasing in size. Source: Patient, Old records Exam Limitations: No limitations History of Present Illness Patient is a 46-year-old female with end-stage renal disease who developed an ulcer on the posterior aspect of the right calf and has been treated at the wound care center with Dr. Yash Corley. Dr. Corley requested that the patient be admitted for debridement of the wound as he has reached the limitations of debridement he can perform in hip the wound care center. He also was concerned that there may be some underlying arterial insufficiency as the wound is showing no signs of healing and is actually worsening. Patient states the pain is 10 out of 10 in her right calf wound. Patient is hemodialysis dependent and currently dialyzes through a [facility]. Patient denies rest pain, claudication, TIAs, amaurosis fugax, dysarthria, paralysis or paresis of an extremity, nausea, vomiting, fevers, chills, chest pain or shortness of breath. Home Medications Scheduled (Auryxia) 210 Mg Tab, 420 MG PO WM, (Reported) Alprazolam (Xanax) 0.25 Mg Tab, 0.25 MG PO Q8H, (Reported) Apixaban Base (Eliquis) 5 Mg Tab, 5 MG PO BID, (Reported) Cinacalcet Hydrochloride (Sensipar) 90 Mg Tab, 90 MG PO 3XW, (Reported) TUES/THURS/SAT Docusate Sodium (Colace) 100 Mg Cap, 100 MG PO QHS, (Reported) Folic Acid (Folic Acid) 1 Mg Tab, 1 MG PO DAILY, (Reported) Gabapentin (Gabapentin) 300 Mg Cap, 300 MG PO TID, (Reported) Midodrine HCl (Midodrine HCl) 5 Mg Tab, 5 MG PO 3XW, (Reported) DIALYSIS DAYS TUES/THURS/SAT Sodium Polystyrene Sulfonate (Sps) 15 Gm/60 Ml Susp, 15 GM PO ASDIRECTED, ( Reported) TAKES IF SHE MISSES DIALYSIS Trazodone HCl (Trazodone HCl) 100 Mg Tab, 100 MG PO QHS, (Reported) Vitamin D (Drisdol) 50,000 Unit Cap, 50,000 UNIT PO QWEEK, (Reported) MONDAYS Scheduled PRN Acetaminophen (Acetaminophen) 500 Mg Tab, 500 MG PO TID PRN for PAIN, (Reported) Lidocaine (Lidoderm) 5 % Dis, 1 PATCH TD DAILY PRN for PAIN, (Reported) APPLIES TO BACK Oxycodone Hcl (Oxycodone HCl) 30 Mg Tab, 30 MG PO Q6H PRN for PAIN, (Reported) Polyethylene Glycol (Miralax) 1 Pow Pow, 17 GM PO DAILY PRN for CONSTIPATION, ( Reported) dilute in 8 ounces of water or juice Allergies Coded Allergies: Codeine (Verified Adverse Reaction, Mild, GI UPSET, 06/09/17) Past Medical History Medical History Hypertension End-stage renal disease requiring renal replacement therapy Obesity Calciphylaxis with nonhealing right calf wound Surgical History Multiple arteriovenous fistulas and arteriovenous graft placements with subsequent thrombosis section in 1990 Tonsillectomy Left brachiocephalic arteriovenous fistula formation 05/26/2017 Family History Father is with a history of coronary artery disease and myocardial infarction Mother is with a history of diabetes mellitus, hypertension Social History * Smoker: Denies Alcohol: Denies Drugs: denies Recent Travel/Sick Contacts: Denies: Recent travel, Recent sick contacts Psychosocial History: No pertinent psych hx, Anxiety Review of Symptoms Constitutional: Denies: Chills, Fever, Malaise, Night Sweats, Weakness, Fatigue , Weight Loss, Lethargy, Other Eyes: Denies: Pain, Vision change, Conjunctivae inflammation, Eyelid inflammation, Redness, Other ENT: Denies: Head Aches, Ear Pain, Dysphagia, Sinus Congestion, Post Nasal Drip , Sore Throat, Epistaxis, Other Symptoms Skin: Denies: Rash, Lesions, Jaundice, Bruising, Itching, Dry, Breakdown, Nail Changes, Other Pulmonary: Denies: Dyspnea, Cough, Pleuritic Chest Pain, Other Symptoms Cardiovascular: Denies: Chest Pain, Palpitations, Orthopnea, Paroxysmal Noc. Dyspnea, Edema, Lt Headedness, Other Symptoms Gastrointestinal: Denies: Nausea, Vomiting, Abdominal Pain, Diarrhea, Constipation, Melena, Hematochezia, Other Symptoms Genitourinary: Denies: Dysuria, Frequency, Incontinence, Hematuria, Retention, Other Symptoms Hematologic: Denies: Bruising, Bleeding Excessively, Petecchia, Purpura, Enlarged Lymph Nodes, Other Hematologic Endocrine: Denies: Polydipsia, Polyphagia, Polyuria, Heat Intolerance, Cold Intolerance, Other Endocrine Sx Musculoskeletal: Denies: Neck Pain, Back Pain, Shoulder Pain, Arm Pain, Hand Pain, Leg Pain, Foot Pain, Joint Pain, Muscle Pain, Spasms, Other Symptoms Neurological: Denies: Weakness, Numbness, Incoordination, Change in speech, Confusion, Seizures, Other Symptoms Psych: Denies: Mood Normal, Anxiety, Depression, Memory Issues, Thoughts of Self Harm, Anger, Thoughts of Harming Other, Other Psych Physical Examination General Exam: Positive: Alert, Cooperative, Mild Distress Eye Exam: Positive: PERRLA, Conjunctiva & lids normal, EOMI ENT Exam: Positive: Atraumatic, Mucous membr. moist/pink, Pharynx Normal Neck Exam: Positive: Supple, JVD, +2 carotid pulse wo bruit Chest Exam: Positive: Clear to auscultation, Normal air movement Heart Exam: Positive: Rate Normal, Normal S1, Normal S2 Telemetry: Positive: No significant arrhythmia Abdomen Exam: Positive: Normal bowel sounds, BS Hyperactive, BS Hypoactive, Soft, Negative: Tenderness, Hepatospenomegaly Extremity Exam: Positive: Tenderness, Other, Negative: Clubbing, Cyanosis, Edema, Swelling Skin Exam: Positive: Nl turgor and temperature, Other skin issue Neuro Exam: Positive: Normal Gait, Normal Speech, Strength at 5/5 X4 ext, Sensation Intact, Cranial Nerves 3-12 NL Psych Exam: Positive: Mental status NL, Mood NL, Anxiety, Oriented x 3 Other physical findings Right lower extremity pulses are nonpalpable with Doppler both dorsalis pedis and posterior tibial pulses. The right calf wound shows a large amount of necrotic tissue and necrotic skin edges with minimal granulation tissue. The wound is exquisitely tender to palpation. Vital Signs Vital Signs Date Time Temp Pulse Resp B/P (MAP) Pulse Ox O2 Delivery O2 Flow Rate FiO2 10/05/17 10:00 96.9 75 16 148/87 (107) 96 Room Air Laboratory Data Labs 24H Laboratory Tests 2 10/04/17 13:47: Immature Granulocyte % (Auto) 0.6H, White Blood Count 4.9, Red Blood Count 3.02L , Hemoglobin 8.5L, Hematocrit 27.3L, Mean Corpuscular Volume 90.4, Mean Corpuscular Hemoglobin 28.1, Mean Corpuscular Hemoglobin Concent 31.1L, Red Cell Distribution Width 14.6H, Platelet Count 179, Neutrophils (%) (Auto) 82.5H , Lymphocytes (%) (Auto) 11.4L, Monocytes (%) (Auto) 4.5, Eosinophils (%) (Auto ) 0.6, Basophils (%) (Auto) 0.4, Neutrophils # (Auto) 4.0, Lymphocytes # (Auto) 0.6L, Monocytes # (Auto) 0.2, Eosinophils # (Auto) 0.0, Basophils # (Auto) 0.0, Immature Granulocyte # (Auto) 0.0, Nucleated Red Blood Cells % (auto) 0.0, Prothrombin Time 17.8H, Prothromb Time International Ratio 1.43, Activated Partial Thromboplast Time 76.7H, Anion Gap 18H, Glomerular Filtration Rate 21.1L , Blood Urea Nitrogen 7, Creatinine 2.58H, Sodium Level 140, Potassium Level 3.3L, Chloride Level 94L, Carbon Dioxide Level 28, Calcium Level 9.8 CBC/BMP Laboratory Tests 10/04/17 13:47 Red Blood Count 3.02 L, Mean Corpuscular Volume 90.4, Mean Corpuscular Hemoglobin 28.1, Mean Corpuscular Hemoglobin Concent 31.1 L, Red Cell Distribution Width 14.6 H, Neutrophils (%) (Auto) 82.5 H, Lymphocytes (%) (Auto ) 11.4 L, Monocytes (%) (Auto) 4.5, Eosinophils (%) (Auto) 0.6, Basophils (%) ( Auto) 0.4, Neutrophils # (Auto) 4.0, Lymphocytes # (Auto) 0.6 L, Monocytes # ( Auto) 0.2, Eosinophils # (Auto) 0.0, Basophils # (Auto) 0.0, Calcium Level 9.8 Assessment/Plan Patient is a 46-year-old female with calciphylaxis and a large wound in the right calf which is nonhealing and actually showing progression towards becoming larger and more necrotic. Patient has nonpalpable pulses in the right lower extremity and will undergo an angiogram with possible angioplasty and stent followed by debridement of the wound once the arterial inflow to the right lower extremity is confirmed to be adequate or improved with intervention. Patient will be started on antibiotic therapy with IV Zosyn. Problems (1) Renal failure (2) Calciphylaxis of right lower extremity with nonhealing ulcer (3) Calciphylaxis of right lower extremity with nonhealing ulcer with necrosis of muscle Plan / VTE VTE Prophylaxis Ordered?: Yes Plan Plan Patient will undergo and right lower extremity angiogram followed by debridement of the right calf wound in the operating room. Yash Gunderson MD Oct 05, 2017 12:50
[2017-10-05] MEDS ORDERED: ACETAMINOPHEN 500 MG TAB PO PRN (13:00)
[2017-10-05] MEDS ORDERED: MIRALAX *UNIT DOSE* 17GM PACKET PO PRN (13:00)
[2017-10-05] MEDS ORDERED: ONDANSETRON 4MG/2ML VIAL (J2405) As Ordered ONE (13:00)
[2017-10-05] MEDS ORDERED: SOD POLYSTYRENE SULFONATE SUSP 15 GM/60 ML UD PO PRN (13:00)
[2017-10-05] MEDS: FOLIC ACID 1 MG TAB PO SCH (15:25)
[2017-10-05] MEDS: CINACALCET 30 MG TAB (SENSIPAR) PO SCH (15:25)
[2017-10-05] MEDS: ALPRAZolam 0.25 MG TAB PO SCH ×2 (15:25→21:06)
[2017-10-05] MEDS: NS 1,000 ML IV SCH (15:26)
[2017-10-05] MEDS ORDERED: SODIUM THIOSULFATE (25%) 12.5 GM/50 ML VIAL IV SCH (17:45)
[2017-10-05] MEDS ORDERED: ALPRAZolam 0.25 MG TAB As Ordered ONE (20:59)
[2017-10-05] MEDS: **NOTE PATIENT COMMENT** MISC XX SCH (21:00)
[2017-10-05] MEDS: APIXABAN 5 MG TAB (ELIQUIS) PO SCH (21:06)
[2017-10-05] MEDS: traZODone 100 MG TAB PO SCH (21:07)
--- NOTE | 2017-10-05 22:06 | CR ---
DATE OF NEPHROLOGY CONSULTATION: 10/05/2017 REQUESTING PHYSICIAN: Yash Gunderson MD CONSULTING PHYSICIAN: Sloane You MD REASON FOR CONSULTATION: Management of end-stage renal disease and arrangement of hemodialysis. CHIEF COMPLAINT: The patient was admitted to the hospital with nonhealing wound in the right calf, which is very painful and she has history of calciphylaxis. HISTORY OF PRESENT ILLNESS: Perlita Zheng is a 46-year-old female with past medical history of end-stage renal disease, on hemodialysis recently diagnosed with calciphylaxis. She was following up with Dr. Corley as outpatient for wound care and she is getting sodium thiosulfate three times a week with hemodialysis session. The patient continued to have severe 9 x 10 pain in the right leg wound despite use of opiate pain medications. The patient was referred to vascular surgery for possible underlying arterial insufficiency because of nonhealing wound. The patient was admitted under vascular surgery service for further evaluation and possible angiogram. Nephrology service was called for further help in the management of end-stage renal disease and hemodialysis. I saw the patient today morning. She has a dressing on the right leg now and as reported by patient she was scheduled for an angiogram today. PAST MEDICAL HISTORY: The patient has a past medical history of: End-stage renal disease, on hemodialysis. Hypertension. Calciphylaxis in the right leg. History of infected arteriovenous (AV) graft in the past. Hyperlipidemia. Hyperparathyroidism. Hypercoagulability. History of multiple clotting of her AV grafts and fistulas. She currently has a dialysis catheter. PAST SURGICAL HISTORY: The patient has history of: Tonsillectomy and adenoidectomy in the past. Status post section. Status post resection of the right arm and left arm AV graft which are failed. Status post partial bilateral thyroidectomy. Status post AV fistula placement in the left forearm in May 2017, which later on clotted. ALLERGIES: The patient is allergic to CODEINE. FAMILY HISTORY: No significant family history of end-stage renal disease requiring hemodialysis. SOCIAL HISTORY: The patient is disabled. She denies any illicit drug abuse, smoking, or alcohol abuse. She is a former smoker. She quit smoking in 2008. REVIEW OF SYSTEMS: CONSTITUTIONAL: The patient denies any fever, chills, and rigors. EYES: She denies any blurry vision or double vision. ENT: She denies any dysphagia, odynophagia or ear discharge. CARDIOVASCULAR: She denies any chest pain, palpitations or edema. RESPIRATORY: She denies any cough, wheezing or shortness of breath. GASTROINTESTINAL (GI): She denies any nausea or vomiting. She does report some constipation. GENITOURINARY: She denies any dysuria, hematuria. MUSCULOSKELETAL: She reports nonhealing ulcer on the right leg and severe right leg pain. SKIN: The patient has calciphylaxis. PSYCHIATRIC: The patient reports that she has anxiety and depression. ENDOCRINE: The patient has hyperparathyroidism and history of hypothyroidism. HEMATOLOGICAL/ONCOLOGICAL: The patient has anemia secondary to end-stage renal disease. All other review of system is negative. PHYSICAL EXAMINATION: GENERAL: The patient is awake, alert and oriented times three. Laying in bed. No apparent distress. VITAL SIGNS: Temperature is 97 degrees Fahrenheit. Blood pressure is 140/80, pulse is 85, respiratory rate of 18. Saturating 98% on room air. HEAD/NECK: Extraocular muscles intact. Pupils equally round and reactive to light. Mucous membranes are moist. The patient has pallor in the conjunctiva. Neck is supple. There is no jugular venous distention (JVD). CARDIOVASCULAR: S1, S2, regular rate. No murmur, rub or gallop. RESPIRATORY: Chest is clear to auscultation bilaterally. Bilateral equal air entry. No rales or rhonchi. The patient has a left IJ tunneled hemodialysis catheter. ABDOMEN: Soft. Positive bowel sounds. Nontender. No ascites. No organomegaly. MUSCULOSKELETAL: Patient has moderate to severe tenderness in the right leg. She has a dressing on the right leg at this time at the calciphylaxis site. The patient has calciphylaxis in the right heel as well. CENTRAL NERVOUS SYSTEM: No focal neurological deficit. Power is 5/5 in all extremities. PSYCHIATRIC: Normal mood and affect. LYMPH NODES: No significant cervical, axillary or inguinal lymphadenopathy. LYMPH NODES: The patient does not have any significant cervical or inguinal lymphadenopathy. LAB REVIEW: CBC showed a WBC 4.9, hemoglobin 8.5, platelets 179. INR is 1.43. BMP showed sodium 140, potassium 3.3, chloride 94, bicarbonate 28, BUN is 7, creatinine is 2.58. CURRENT INPATIENT MEDICATION: The patient's medication were all reviewed by me. - I have started the patient on sodium thiosulfate 25 gram IV Wednesday, Wednesday, Wednesday with hemodialysis. - She is currently on Zosyn 3.375 IV every 12 hourly - xanax 0.25 mg by mouth every 8 hourly - Eliquis 5 mg by mouth twice a day -Sensipar 90 mg by mouth every Wednesday, , Wednesday - Benadryl as needed for itching - Senokot 1 tablet twice a day - folic acid 1 mg daily - gabapentin 300 mg by mouth three times a day - midodrine 5 mg by mouth Wednesday, Wednesday, Wednesday. - milk of mag 30 mL by mouth daily as needed constipation - Zofran as needed - MiraLAX 1 packet daily for constipation - trazodone 100 mg by mouth at bedtime - vitamin D ASSESSMENT: 46-year-old female with past medical history of end-stage renal disease on hemodialysis, calciphylaxis with nonhealing wound in the right leg, depression and anxiety, history of hypercoagulability, admitted this time under vascular surgery service for angiogram to look for ischemia in the right leg for nonhealing wound. PLAN: 1. End-stage renal disease on hemodialysis. Tomorrow is the patient's regular day of dialysis. The patient will be dialyzed according to her regular schedule. Ultrafiltration goal will be around 2 to 2.5 kg as tolerated by her blood pressure. 2. Calciphylaxis. The patient will get sodium thiosulfate 25 gram IV in the last one hour of hemodialysis Wednesday, Wednesday, Wednesday during hemodialysis session. She is also continuing sodium thiosulfate as outpatient as well. Avoid IV iron. Avoid Coumadin. Continue Eliquis. Avoid calcium containing phosphorous binders, avoid calcitriol, continue Sensipar. The rest of the management is as per vascular surgery and wound care. 3. Anemia and end-stage renal disease. Part of the anemia is secondary to wound inflammation. Her hemoglobin is 8.5. She is going to receive 1 unit of packed red blood cells transfusion during hemodialysis tomorrow. 4. Nonhealing right leg ulcer. The patient is currently on IV Zosyn antibiotics. She is going for angiogram to look for ischemia, for stenosis and possible stenting in the right leg arteries. 5. History of hypercoagulability. Continue current dose of Eliquis 5 mg by mouth twice a day. 6. Secondary hyperparathyroidism. Continue Sensipar 90 mcg by mouth Wednesday, , Wednesday. 7. History of depression and anxiety. Continue current dose of Xanax and trazodone. Thank you for involving us in the care of your patient. We shall be happy to follow the patient along with you tomorrow morning.
[2017-10-06] VITALS (8 sets, daily range): BP systolic 104–180; BP diastolic 59–90
[2017-10-06] MEDS: PIPERACILLIN/TAZOBACTAM SOD 3.375 GM in APPROPRIATE DILUENT 1 EA IV SCH ×2 (03:31→14:44)
[2017-10-06] MEDS: ALPRAZolam 0.25 MG TAB PO SCH ×3 (06:22→20:11)
[2017-10-06] MEDS: NS 1,000 ML IV SCH (06:27)
[2017-10-06] MEDS: DOCUSATE SODIUM 100 MG CAP PO SCH ×2 (06:28→20:11)
[2017-10-06] MEDS: APIXABAN 5 MG TAB (ELIQUIS) PO SCH ×2 (06:28→20:11)
[2017-10-06] MEDS: FOLIC ACID 1 MG TAB PO SCH (06:28)
[2017-10-06] MEDS: GABAPENTIN 300 MG CAP PO SCH ×3 (06:28→20:10)
[2017-10-06] MEDS: SENOKOT S TAB PO SCH ×2 (06:28→20:10)
[2017-10-06] MEDS ORDERED: SODIUM THIOSULFATE 100 ML IV SCH ×2 (09:00→12:00)
[2017-10-06] MEDS ORDERED: HEPARIN 1,000 UNITS/ML 10ML VIAL (FOR RADIOLOGY& DIALYSIS ONLY) XX ONE (11:00)
--- NOTE | 2017-10-06 11:01 | DS.PDOC ---
Discharge Summary General Date of Admission Oct 04, 2017 at 13:21 Date of Discharge October 06, 2017 Attending Physician: Yash Gunderson MD Specialist/Consultants Involve: ROBIN KIM MD Specialist/Consultants Involve Dr. Yash Corley Discharge Summary PROCEDURES PERFORMED DURING STAY: Aortogram with right lower extremity angiography. ADMITTING DIAGNOSES: 1. End-stage renal disease. 2. hypertension. 3. calciphylaxis with nonhealing right calf wound. 4. Femoral popliteal atherosclerotic arterial occlusive disease DISCHARGE DIAGNOSES: 1. End-stage renal disease. 2. hypertension. 3. calciphylaxis with nonhealing right calf wound. 4. Femoral popliteal atherosclerotic arterial occlusive disease COMPLICATIONS/CHIEF COMPLAINT: Non-Healing Right Lower Extremity Wound, end- stage renal disease and calciphylaxis. HISTORY OF PRESENT ILLNESS: The patient is a 47-year-old female who was admitted with right lower extremity nonhealing calf wound secondary to calciphylaxis who was treated with antibiotic therapy and pain control and subsequently underwent a right lower extremity and she ran showing near occlusive lesion in the right common femoral artery and at the origin of the right superficial femoral artery. These lesions were not amenable to endovascular intervention and will require a femoral endarterectomy with possible bypass. HOSPITAL COURSE: Patient was admitted with a nonhealing right calf ulcer which was worsening and within significant amount of pain in the right lower extremity. Patient underwent a right lower extremity and gram which showed severe atherosclerotic arterial occlusive disease in the right common femoral and superficial femoral arteries. Patient will require a femoral endarterectomy with possible bypass. I discussed the options with the patient who wishes to be discharged and followup for right femoral endarterectomy with possible bypass as an outpatient. Patient is currently undergoing hemodialysis and will be discharged to home after dialysis and will followup next week for reevaluation and scheduling of her right femoral endarterectomy with possible bypass. DISCHARGE MEDICATIONS: Please see below. ALLERGIES: Please see below. PHYSICAL EXAMINATION ON DISCHARGE: VITAL SIGNS: Please see below. GENERAL: Lying in bed undergoing hemodialysis with no apparent distress HEENT: Normal NECK: Supple with no carotid bruits CARDIOVASCULAR EXAMINATION: Regular rate and rhythm RESPIRATORY EXAMINATION: Clear to auscultation bilaterally ABDOMINAL EXAMINATION: Soft nontender nondistended with no palpable pulsatile masses EXTREMITIES: Warm with nonpalpable pulses which are easily obtainable with Doppler ultrasound SKIN: Warm and well perfused no obvious lesions or abnormalities NEUROLOGICAL EXAMINATION: Awake alert oriented x3 with no focal deficits PSYCHIATRIC EXAMINATION: Normal LABORATORY DATA: Please see below. IMAGING: Right lower extremity angiogram showed high-grade near occlusive lesions in the right common femoral artery and at the origin of the right superficial femoral artery as well as in the mid thigh region of the superficial femoral and popliteal artery. PROGNOSIS: Good ACTIVITY: [As tolerated]. DIET: Renal diet. DISCHARGE PLAN: Patient will be discharged to home and followup in the office as an outpatient to be scheduled for a right femoral endarterectomy with possible bypass. Patient will notify me should there be any worsening of her pain in her right lower extremity or any worsening in her right calf wound. DISPOSITION: Home. DISCHARGE INSTRUCTIONS: 1. patient to followup in 5-7 days for reevaluation and scheduling of the right femoral endarterectomy with possible bypass. 2. patient to continue her wound care of her right calf ulcer per Dr. Charles in the wound care center.. DISCHARGE CONDITION: [Stable]. TIME SPENT ON DISCHARGE: Greater than 45 minutes. Vital Signs/I&Os Vital Signs Date Time Temp Pulse Resp B/P (MAP) Pulse Ox O2 Delivery O2 Flow Rate FiO2 10/06/17 06:00 98.7 73 18 107/59 (75) 96 Room Air Discharge Medications Scheduled (Auryxia) 210 Mg Tab, 420 MG PO WM, (Reported) Alprazolam (Xanax) 0.25 Mg Tab, 0.25 MG PO Q8H, (Reported) Apixaban Base (Eliquis) 5 Mg Tab, 5 MG PO BID, (Reported) Cinacalcet Hydrochloride (Sensipar) 90 Mg Tab, 90 MG PO 3XW, (Reported) TUES/THURS/SAT Docusate Sodium (Colace) 100 Mg Cap, 100 MG PO QHS, (Reported) Folic Acid (Folic Acid) 1 Mg Tab, 1 MG PO DAILY, (Reported) Gabapentin (Gabapentin) 300 Mg Cap, 300 MG PO TID, (Reported) Midodrine HCl (Midodrine HCl) 5 Mg Tab, 5 MG PO 3XW, (Reported) DIALYSIS DAYS TUES/THURS/SAT Sodium Polystyrene Sulfonate (Sps) 15 Gm/60 Ml Susp, 15 GM PO ASDIRECTED, ( Reported) TAKES IF SHE MISSES DIALYSIS Trazodone HCl (Trazodone HCl) 100 Mg Tab, 100 MG PO QHS, (Reported) Vitamin D (Drisdol) 50,000 Unit Cap, 50,000 UNIT PO QWEEK, (Reported) MONDAYS Scheduled PRN Acetaminophen (Acetaminophen) 500 Mg Tab, 500 MG PO TID PRN for PAIN, (Reported) Lidocaine (Lidoderm) 5 % Dis, 1 PATCH TD DAILY PRN for PAIN, (Reported) APPLIES TO BACK Oxycodone Hcl (Oxycodone HCl) 30 Mg Tab, 30 MG PO Q6H PRN for PAIN, (Reported) Polyethylene Glycol (Miralax) 1 Pow Pow, 17 GM PO DAILY PRN for CONSTIPATION, ( Reported) dilute in 8 ounces of water or juice Allergies Coded Allergies: Codeine (Verified Adverse Reaction, Mild, GI UPSET, 06/09/17) Yash Gunderson MD Oct 06, 2017 11:01
[2017-10-06] MEDS ORDERED: cloNIDine 0.1 MG TAB PO ONE (12:30)
[2017-10-06] MEDS ORDERED: MIDODRINE 5 MG TAB PO SCH (16:00)
[2017-10-06] MEDS ORDERED: ALPRAZolam 0.25 MG TAB As Ordered ONE (20:06)
[2017-10-06] MEDS: **NOTE PATIENT COMMENT** MISC XX SCH (20:11)
[2017-10-06] MEDS: traZODone 100 MG TAB PO SCH (20:11)
[2017-10-07 02:00] VITALS: BP 92/54
[2017-10-07] MEDS: PIPERACILLIN/TAZOBACTAM SOD 3.375 GM in APPROPRIATE DILUENT 1 EA IV SCH (03:39)
[2017-10-07 06:00] VITALS: BP 94/56
[2017-10-07] MEDS: ALPRAZolam 0.25 MG TAB PO SCH (06:04)
[2017-10-07] MEDS: CINACALCET 30 MG TAB (SENSIPAR) PO SCH (08:13)
[2017-10-07] MEDS: DOCUSATE SODIUM 100 MG CAP PO SCH (08:13)
[2017-10-07] MEDS: GABAPENTIN 300 MG CAP PO SCH (08:13)
[2017-10-07] MEDS: FOLIC ACID 1 MG TAB PO SCH (08:13)
[2017-10-07] MEDS: SENOKOT S TAB PO SCH (08:13)
[2017-10-07] MEDS: APIXABAN 5 MG TAB (ELIQUIS) PO SCH (08:13)
--- NOTE | 2017-10-07 08:29 | IPN ---
DATE: 10/06/2017 SUBJECTIVE: Patient was seen and examined at the bedside today, morning, during hemodialysis procedure. The patient was tolerating the hemodialysis procedure well. Last 24-hour events are noted. Patient got the angiogram of the right lower extremity done, which showed stenosis of the femoral artery and as per documentation, the patient would need a femoral bypass as an outpatient. REVIEW OF SYSTEMS: The patient denies any fever, chills, rigors, headache, nausea, vomiting, chest pain, shortness of breath, pain in abdomen. Patient reports that her leg pain is improving, and the right leg ulcer bleeding is also better after the angiogram was done. The rest of the review of systems is negative. OBJECTIVE: VITAL SIGNS: Temperature is 97.4 degrees Fahrenheit. Blood pressure is 130/62, pulse is 77, respiratory rate of 16, saturating 96% on room air. INTAKE/OUTPUT: Urine output is not recorded. Weight on the bed scale today morning was 72.3 kg. PHYSICAL EXAMINATION: GENERAL: The patient is awake, alert, oriented times three, laying in bed getting hemodialysis done. No apparent distress. HEAD AND NECK EXAM: Extraocular muscles intact. Pupils equally round and reactive to light. Mucous membranes are moist. Neck is supple. There is no jugular venous distention (JVD). CARDIOVASCULAR: S1, S2, regular rate. No murmur, rub or gallop. RESPIRATORY: Chest is clear to auscultation bilaterally. Bilateral equal air entry. There are no rales or rhonchi. The patient has a left internal jugular (IJ) tunneled hemodialysis catheter, which is being used for dialysis at this time. ABDOMEN: Abdomen is soft. Positive bowel sounds. Nontender. No ascites. No organomegaly. MUSCULOSKELETAL: The patient has a dressing on the right leg because of calciphylaxis ulcers. Otherwise normal range of movement. CENTRAL NERVOUS SYSTEM: No focal neurological deficit. Power is 5/5 in all extremities. PSYCHIATRIC: Normal mood and affect. LAB REVIEW: There is no recent BMP or CBC available. The latest labs are from 10/04/2017. CURRENT INPATIENT MEDICATIONS: The patient's medications were all reviewed by me. There is no change in the medications today as compared with yesterday. 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 PLAN: 1. End-stage renal disease, on hemodialysis. The patient is being dialyzed according to a schedule. We shall try to do an ultrafiltration of about 2.5 to 3 kg as tolerated by her blood pressure. 2. Anemia secondary to end-stage renal disease. The patient will get one unit of packed red blood cell transfusion during hemodialysis today. 3. Calciphylaxis. The patient will get sodium thiosulfate 25 grams IV in the last hour of hemodialysis session. 4. Non-healing right leg ulcer. Patient got the angiogram done and as per documentation, patient has atherosclerotic disease in the femoral vessels, and she will need a bypass as an outpatient in the near future. 5. History of hypercoagulability. Continue current dose of Eliquis. 6. Disposition: If patient remains stable after hemodialysis, hopefully we should be able to discharge her within the next 24-48 hours.
--- NOTE | 2017-10-11 17:50 | REPIR ---
DATE OF PROCEDURE: 10/05/2017 PREPROCEDURE DIAGNOSIS: End stage renal disease, hypertension, nonhealing right calf ulcer secondary to calciphylaxis. POSTPROCEDURE DIAGNOSIS: End stage renal disease, hypertension, nonhealing right calf ulcer secondary to calciphylaxis plus aortoiliac arterial atherosclerotic occlusive disease, femoral popliteal arterial atherosclerotic occlusive disease. PROCEDURE: Aortogram, iliofemoral angiogram, elective right common femoral artery catheter placement with right lower extremity angiograms, elective right superficial femoral artery catheter placement with right lower extremity angiogram, Mynx closure of the left common femoral arteriotomy. SURGEON: Dr. María Gunderson IT SOFTWARE DEVELOPER: Falguni Lowe and Lily Ambriz. ANESTHESIA: Local with moderate sedation with 2 mg of Versed, 100 mcg of Fentanyl. SEDATION TIME: From 1302 p.m. to 1340 p.m. for a total of 38 minutes with the sedation and cardiopulmonary monitoring performed by the RN in the room under my direct supervision. I was present for and directed the entire case. FLUORO TIME: 1.4 minutes. CONTRAST: 29 mL. COMPLICATION: None. DRAINS: None. SPECIMENS: None. IMPLANTS: Left common femoral arteriotomy closure with Mynx closure device. INDICATION: Patient is a 46-year old female with end stage renal disease who developed calciphylaxis and a wound on her right calf which has been nonhealing and actually increasing in size and worsening in terms of depth of the wound with significant pain in the right calf wound. Patient has nonpalpable pulses and will undergo a right lower extremity angiogram with possible angioplasty and or stent. Risks, benefits and alternative treatment options were discussed with the patient. Benefits included but were not limited to improving the arterial inflow to the right lower extremity with decreased pain and improved wound healing. Alternative treatment options included but were not limited to no intervention. Risks included but were not limited to infection, bleeding, possible need for open surgical intervention, retroperitoneal hematoma, cerebrovascular accident, myocardial infarction, pulmonary embolus, deep venous thrombosis (DVT), loss of limb, loss of life, and poor outcome. Patients questions were answered. Patient voices understanding of these risks, benefits and alternative treatment options and agrees to proceed with a right lower extremity angiogram with possible angioplasty stent and or thrombolysis. PROCEDURE: The patient was taken to the angiography suite and placed supine on the angiography room table and then prepped and draped in a standard surgical fashion. A time out was then completed by myself and the team members within the room confirming the correct procedure, patient, and laterality. The left common femoral artery was then cannulated with a micropuncture needle. After anesthetizing the overlying skin with 1% Lidocaine the micropuncture wire was advanced through the micropuncture needle which was upsized to a micropuncture sheath. An advancer wire was advanced through the micropuncture sheath which was upsized to a 5-Spanish sheath. An Omni Flush catheter was then placed in the aorta and an aortogram was performed. Catheter was pulled down level to the bifurcation of the iliac arteries and an iliofemoral angiogram was performed. Catheter was directed over the bifurcation of the iliac arteries and placed in the right common femoral artery and a right lower extremity angiogram was performed. Catheter was then advanced into the right superficial femoral artery with right lower extremity angiography performed. Catheter was then removed over advanced wire and a Mynx closure device was used to closed the arteriotomy with an additional 10 minutes of adjunctive pressure applied for hemostasis. Dressings were then applied. Patient tolerated the procedure well. All instruments, sponge, and needle counts were correct at the end of the case. There were no complications. Dr. Gunderson was present for and directed the entire case. Patient was transferred to the holding area and subsequently to the floor in stable condition. RADIOLOGIC SUPERVISION INTERPRETATION: The initial aortogram showed the celiac artery to be patent with no significant stenosis noted. The celiac artery was widely patent giving rise to a hepatic artery which was patent as well as a splenic artery and short gastric. The splenic artery showed some diffuse calcification along the length of the artery. The superior mesenteric artery was widely patent. The right and left renal arteries were small in caliber and severely disease. The infrarenal aorta was patent with some mild calcific plaquing along the melendez of the artery but with good filling of the lumbar vessels and the immediate sacral vessel distally. The left common iliac artery showed an approximate 50% stenosis at its origin and the left common iliac and external internal iliac arteries were patent with some mild diffuse luminal irregularities in the common iliac and internal iliac artery on the left. The left external iliac artery was patent into the left common femoral artery. The proximal left superficial femoral and profunda femoris arteries were severely diseased with severe calcific occlusive disease. There was no visualization of the left lower extremity below the puncture site. The right common iliac artery was patent with some calcific occlusive disease noted in the right common iliac artery in the mid portion with an approximate 50-60% stenosis. The right internal iliac artery was severely diseased at its origin. The right external iliac artery was widely patent down to the right common femoral artery where there was a high grade near occlusive stenosis in the right common femoral artery due to calcific occlusive disease. The catheter was advanced up and over the bifurcation and placed selectively in the right common femoral artery and an angiogram was performed showing an approximate 90% stenosis at the origin of the right superficial femoral artery with again noted to be calcific arterial occlusive disease. The right profunda femoris artery was patent with some calcific occlusive disease in the proximal right profunda femoris which was causing an approximate 60% stenosis. The catheter was advanced into the superficial femoral artery and a right lower extremity angiogram was performed showing the remainder of the superficial femoral artery to be patent with an area of stenosis in the upper thigh region of approximately 30-40%. There was thick calcific plaquing along the wall of the superficial femoral artery along its course with again noted to be calcific occlusive disease at the superficial femoral popliteal artery junction with an approximate 60% stenosis. There was a second stenosis in the popliteal artery in the above knee region again with an approximate 50-60% stenosis due to atherosclerotic arterial calcific disease. The below knee popliteal artery showed an approximate 90% stenosis just below the level of the knee joint with peroneal and anterior tibial runoff into the foot and ankle region. Their posterior tibial artery was occluded at its origin and was not visualized distally. A Mynx closure device was used to close the arteriotomy in the left common femoral artery.
== END 2017-10-07 08:20 | disposition home or self-care (01) ==
LOC: M MS5PR 13:21
PROVIDERS: ADMIT Surgery Vascular Surgery; ATTEND Surgery Vascular Surgery
DX: I70.232 Atherosclerosis of native arteries of right leg with ulceration of calf (principal); I70.0 Atherosclerosis of aorta; I12.0 Hypertensive chronic kidney disease with stage 5 chronic kidney disease or end stage renal disease; N18.6 End stage renal disease; L97.213 Non-pressure chronic ulcer of right calf with necrosis of muscle; M61.461 Other calcification of muscle, right lower leg; F41.9 Anxiety disorder, unspecified; F32.9 Major depressive disorder, single episode, unspecified; D63.1 Anemia in chronic kidney disease; D68.59 Other primary thrombophilia; E78.5 Hyperlipidemia, unspecified; N25.81 Secondary hyperparathyroidism of renal origin; Z88.5 Allergy status to narcotic agent; Z79.899 Other long term (current) drug therapy; Z79.01 Long term (current) use of anticoagulants; Z99.2 Dependence on renal dialysis; Z87.891 Personal history of nicotine dependence
CPT/HCPCS: 36247; 75625; 75716; 75774; 96365; 96366; 96375; 96376; G0269

== ENCOUNTER 2017-10-08 11:06 | Inpatient (IN) | payer MEDICARE, BC ==
[~2017-10-08] VITALS: Ht 177.8 cm; Wt 82.5 kg
[~2017-10-08 11:06] MED LIST changes: +AURY1TAB PO; +ELIQ5TAB PO; +GABA-282 PO; +LIDOCAINE 5% (LIDODERM) PATCH TD PRN
[2017-10-08 12:56] VITALS: BP 165/90
[2017-10-08] MEDS ORDERED: PIPERACILLIN/TAZOBACTAM SOD 3.375 GM in APPROPRIATE DILUENT 1 EA IV SCH (18:00)
[2017-10-08] MEDS ORDERED: SOD POLYSTYRENE SULFONATE SUSP 15 GM/60 ML UD PO SCH (18:15)
[2017-10-08] MEDS: oxyCODONE 5MG TAB PO PRN (18:19)
[2017-10-08] MEDS: FOLIC ACID 1 MG TAB PO SCH (18:19)
[2017-10-08] MEDS: ALPRAZolam 0.25 MG TAB PO SCH (20:25)
[2017-10-08] MEDS: traZODone 100 MG TAB PO SCH (20:25)
[2017-10-08] MEDS: **NOTE PATIENT COMMENT** MISC XX SCH (20:25)
[2017-10-08] MEDS: APIXABAN 5 MG TAB (ELIQUIS) PO SCH (20:25)
[2017-10-08] MEDS: DOCUSATE SODIUM 100 MG CAP PO SCH (20:25)
[2017-10-08] MEDS: GABAPENTIN 300 MG CAP PO SCH (20:25)
[2017-10-08 22:00] VITALS: BP 168/99
[2017-10-09] MEDS: ACETAMINOPHEN 500 MG TAB PO PRN (00:54)
[2017-10-09] MEDS: oxyCODONE 5MG TAB PO PRN ×2 (00:54→08:09)
[2017-10-09] MEDS: APIXABAN 5 MG TAB (ELIQUIS) PO SCH ×2 (05:29→20:55)
[2017-10-09] MEDS: GABAPENTIN 300 MG CAP PO SCH ×3 (05:54→20:55)
[2017-10-09] MEDS: FOLIC ACID 1 MG TAB PO SCH (05:54)
[2017-10-09] MEDS: ALPRAZolam 0.25 MG TAB PO SCH ×3 (05:55→20:55)
[2017-10-09 06:00] VITALS: BP 105/64
[2017-10-09 07:31] LABS: MEAN CORPUSCULAR HEMOGLOBIN 28.1 pg (27.0-33.0); MEAN CORPUSCULAR HGB CONC 30.7 g/dl (32.0-36.5); MEAN CORPUSCULAR VOLUME 91.6 fl (80.0-96.0); PLATELET COUNT, AUTOMATED 123 10^3/uL (150-450); RED CELL DISTRIBUTION WIDTH 14.9 % (11.5-14.5); WHITE BLOOD COUNT 4.9 10^3/uL (4.0-10.0)
[2017-10-09 07:44] LABS: ALBUMIN 2.3 GM/DL (3.2-5.2); CALCIUM LEVEL 7.7 MG/DL (8.5-10.1); CREATININE FOR GFR 8.17 MG/DL (0.55-1.02); GLOMERULAR FILTRATION RATE 5.6 (>58); PHOSPHORUS LEVEL 6.6 MG/DL (2.5-4.9); POTASSIUM SERUM 4.3 MEQ/L (3.5-5.1)
[2017-10-09] MEDS: CINACALCET 30 MG TAB (SENSIPAR) PO SCH (09:00)
[2017-10-09] MEDS ORDERED: MORPHINE SULF IN 0.9% NACL 100 MG in APPROPRIATE DILUENT 1 EA IV SCH ×2 (10:45)
[2017-10-09] MEDS: D5W/0.9% SODIUM CHLORIDE 1,000 ML IV SCH (12:39)
[2017-10-09 12:44] VITALS: BP 186/88
[2017-10-09 13:41] VITALS: BP 187/96
[2017-10-09 14:00] VITALS: BP 170/86
[2017-10-09] MEDS: MORPHINE 10 MG/ML 1ML VIAL IV ONE ×2 (14:00→14:34)
--- NOTE | 2017-10-09 15:00 | CR ---
DATE OF CONSULTATION: 10/08/2017 REQUESTING PHYSICIAN: María Gunderson MD REASON FOR CONSULTATION: To assist in the management of end stage renal disease. HISTORY OF PRESENT ILLNESS: Mrs. Zheng is a 47-year-old female with known history of end stage renal disease, peripheral vascular disease, a nonhealing wound on her right lower extremity, who was recently admitted to [facility] and underwent debridement of her wound. Initially it was thought that the patient had calciphylaxis on her right leg. She underwent an angiogram which showed severe stenosis of her femoral artery in the right lower extremity. The patient is admitted again today for a possible bypass procedure on her right lower extremity. She normally receives hemodialysis three times a week on Wednesday, and Wednesday schedule and is due for dialysis tomorrow. PAST MEDICAL AND SURGICAL HISTORY: Significant for: 1. Longstanding history of hypertension. 2. End stage renal disease secondary to hypertensive nephrosclerosis. 3. History of severe secondary hyperparathyroidism with associated complications. 4. Hyperlipidemia. 5. History of hypercoagulability requiring anticoagulation. 6. History of anemia of chronic kidney disease. 7. History of peripheral vascular disease. 8. History of severe renal osteodystrophy and degenerative arthritis. 9. History of severe peripheral neuropathy. PAST SURGICAL HISTORY: Significant for multiple AV grafts for AV fistulas and currently she is being dialyzed via a PermaCath due to clotted AV graft. Other surgical history is significant for tonsillectomy, , and partial parathyroidectomy. ALLERGIES: 1. The patient reports allergy to CODEINE. MEDICATIONS: Her home medications include: - Xanax 0.25 mg every 8 hours as needed for anxiety - Eliquis 5 mg twice a day, which is currently on hold - Sensipar 90 mg daily - Senokot one tablet twice a day - folic acid 1 mg daily - gabapentin 300 mg three times a day - midodrine 5 mg on Wednesday, Wednesday and Wednesday prior to dialysis - trazodone 100 mg at bedtime - vitamin D 1000 units daily - Zofran as needed for nausea - oxycodone 30 mg every 6 hours as needed for pain PERSONAL AND SOCIAL HISTORY: The patient does not smoke or drink. She denies any recreational drug use. FAMILY HISTORY: Negative for end stage renal disease. REVIEW OF SYSTEMS: The patient denies any fever or chills. She has chronic pain due to severe degenerative arthritis and peripheral vascular disease. She is unable to walk and is mostly wheelchair bound due to the same reason. Head and neck is negative for any headache. She denies any nosebleed, sore throat or sinus problems. Cardiovascular system negative for dyspnea, chest pain, palpitations or leg edema. Respiratory system is negative for cough, hemoptysis or shortness of breath. Gastrointestinal (GI) system is negative for nausea, vomiting or diarrhea. He denies any abdominal pain. Genitourinary () system is significant for end stage renal disease. She denies any dysuria or hematuria. Musculoskeletal system is as per history of present illness. She has three of chronic pain in her back and lower extremities and all joints. She has been on high dose narcotics. Endocrine system is negative for diabetes or thyroid problems. She has secondary hyperparathyroidism, which has been poorly controlled. Psychosocial system is significant for anxiety and depression. Neurological system is significant for peripheral neuropathy. There is no history of stroke. Hematological system is significant for hypercoagulability. She denies any transfusions recently. PHYSICAL EXAMINATION: The patient is awake and alert and without any acute distress at the time of my visit. Temperature is 97.2 degrees Fahrenheit, heart rate 84 per minute and respiratory rate 16 per minute. Blood pressure 165/90 mmHg and oxygen saturation 100% on room air. Head is atraumatic. Pupils equal and reactive to light and sclera is anicteric. Ears, nose and throat are unremarkable. Neck is supple and without JVD or thyroid enlargement. Heart sounds are regular and without a pericardial friction rub. She does have a systolic murmur grade 1/6. Lungs sound clear to auscultation bilaterally and there is no wheezing or rales. Abdomen soft and nontender and without palpable organomegaly. Bowel sounds are normal. Extremities have no cyanosis or clubbing. She has multiple scars from prior AV fistula surgeries on both upper extremities. Her right lower extremity is wrapped in dressing. Skin has no generalized rash. She does have a large ulcer on the right leg which is covered with dressing. Neurologically she is awake, alert and oriented times three. There is no focal neurological deficit. LABORATORY DATA: The patient did not have any labs drawn today. I have reviewed her recent labs from prior hospitalization and at that time her WBC count was 4.9, hemoglobin 8.5 and hematocrit 27.3 on October 04. Sodium was 140 and potassium 3.3. BUN 7 and creatinine 2.58. Calcium was 9.8 and phosphorus 7.2. PROBLEMS: 1. End stage renal disease. The patient is regularly dialyzed on a Wednesday, and Wednesday schedule. I have discussed with Dr. Gunderson and she is likely to go to the operating room in the afternoon. 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 At present her volume status is well-compensated and there is no emergent need for dialysis today. Her electrolytes will be checked tomorrow morning prior to dialysis. 2. Anemia. Her anemia did get worse due to ongoing wound on her lower extremity. CBC will be checked tomorrow. She is likely to require transfusions during or after the procedure. Depending upon her hematocrit, we will make a decision about transfusion. At this point, she is asymptomatic and there is no emergent need for transfusion tonight. 3. Hypertension. Blood pressure has been reasonable, though at times she gets hypotension during dialysis. We have been using midodrine 5 mg prior to dialysis to maintain her blood pressure. Today her blood pressure is good and we will continue to monitor. She is not on any antihypertensive medications at present. 4. Pain control. The patient has required high dose of narcotics chronically for pain control. In the hospital she will receive either intravenous or oral pain medications. I will defer her pain management to Dr. Gunderson. 5. Anxiety. The patient has been using Xanax on an as needed basis. Will continue with the same at 2.5 mg every 8 hours as needed. 6. Secondary hyperparathyroidism. The patient is currently off vitamin D and anticoagulation due to ongoing skin necrosis and wound on her leg. At present, she is off anticoagulation and vitamin D supplementation. I thank you for involving me in the care of Mrs. Zheng. I will follow her along with you.
[2017-10-09] MEDS ORDERED: MIDODRINE 5 MG TAB PO SCH (16:00)
[2017-10-09] MEDS ORDERED: EPIDURAL/PCA KEYS XX PRN (18:00)
[2017-10-09] MEDS ORDERED: ONDANSETRON 4MG/2ML VIAL (J2405) IV PRN (18:00)
[2017-10-09] MEDS ORDERED: NALOXONE INJ 0.4 MG/1 ML VIAL (J2310) IV PRN (18:00)
[2017-10-09] MEDS ORDERED: diphenhydrAMINE INJ 50MG/ML VIAL (J1200) IV PRN (18:00)
[2017-10-09] MEDS ORDERED: NALBUPHINE HCL 10 MG/ML AMP (J2300) IV PRN (18:00)
[2017-10-09] MEDS: MORPHINE 1MG/ML IN 0.9% NACL 100ML IV BAG IV PRN (18:35)
--- NOTE | 2017-10-09 18:46 | IPN ---
DATE: 10/09/2017 Mrs. Zheng is seen this morning during hemodialysis. She is in significant pain and has been crying since she came down for dialysis. She was admitted yesterday due to nonhealing ulcer of her right leg and peripheral vascular disease. She is likely going to operating room today by Dr. Gunderson after dialysis. The patient denies any dyspnea or chest pain at present. She has no nausea or vomiting. She wants a stronger pain medication as she has been in significant pain. PHYSICAL EXAMINATION: Temperature 96.8 degrees Fahrenheit, heart rate 80 per minute and respiratory rate 20 per minute. Blood pressure 160/80 mmHg and oxygen saturation 99% on room air. Head Is atraumatic. Neck is supple and without JVD or thyroid enlargement. Pupils equal and reactive to light and sclerae is anicteric. Heart sounds are regular and lungs clear to auscultation. Abdomen soft and nontender and bowel sounds are normal. Extremities have no cyanosis or clubbing. Her right leg is wrapped in dressing. She has multiple old surgical scars on her both upper extremities. Labs drawn today during dialysis showed a hemoglobin of 7.0 and hematocrit 22.8. Sodium is 136 and potassium 4.3. BUN 36 and creatinine 8.17. Calcium level 7.7 and phosphorus 6.6. PROBLEMS: 1. End-stage renal disease. The patient is being dialyzed today and is tolerating her dialysis treatment well. However, she is in significant pain due to her right leg ulcer and peripheral vascular disease. She will complete 3-1/2-hour dialysis treatment today. 2. Anemia. She does have significant anemia related to blood loss and end-stage renal disease. The patient is being given 2 units of packed RBCs during dialysis today. 3. Hypertension. Her blood pressure control is not optimal and most likely this is related to pain. She usually gets hypotensive during dialysis and we give her midodrine to prevent hypotension. At present I am going to stop her midodrine and we will continue to monitor her blood pressure after her pain is controlled. 4. Pain management. The patient is not responding well to oral oxycodone in high-dose. She has been on narcotics for a few years and has high tolerance. She is also in severe pain due to a large ulcer on her leg and possible tissue ischemia. She is being started on morphine drip. I will defer to Dr. Gunderson for any adjustments.
[2017-10-09] MEDS ORDERED: ALPRAZolam 0.25 MG TAB As Ordered ONE (20:46)
[2017-10-09] MEDS: DOCUSATE SODIUM 100 MG CAP PO SCH (20:55)
[2017-10-09] MEDS: **NOTE PATIENT COMMENT** MISC XX SCH (20:55)
[2017-10-09] MEDS: traZODone 100 MG TAB PO SCH (20:55)
[2017-10-09 22:00] VITALS: BP 174/81
[2017-10-10] VITALS (8 sets, daily range): BP systolic 85–130; BP diastolic 56–80
[2017-10-10] MEDS: ALPRAZolam 0.25 MG TAB PO SCH ×3 (06:00→21:04)
[2017-10-10] MEDS ORDERED: ceFAZolin 1GM INJ (J0690 PER 500MG) As Ordered ONE (08:09)
[2017-10-10] MEDS: HEPARIN SOD (PORCINE) 5000 UNITS/ML VIAL As Ordered ONE ×2 (08:41→11:09)
[2017-10-10] MEDS: APIXABAN 5 MG TAB (ELIQUIS) PO SCH ×2 (09:00→21:04)
[2017-10-10] MEDS: FOLIC ACID 1 MG TAB PO SCH (09:00)
[2017-10-10] MEDS: GABAPENTIN 300 MG CAP PO SCH ×3 (09:00→21:04)
[2017-10-10] MEDS: D5W/0.9% SODIUM CHLORIDE 1,000 ML IV SCH (09:14)
[2017-10-10] MEDS ORDERED: ceFAZolin 2 GM/D5W 50 ML IV BAG (J0690 PER 500MG) As Ordered ONE (09:27)
[2017-10-10] MEDS ORDERED: fentaNYL 100 MCG/2 ML INJECTION (J3010) As Ordered ONE (09:29)
[2017-10-10] MEDS ORDERED: ROCURONIUM BROMIDE 50 MG/5 ML VIAL As Ordered ONE (09:29)
[2017-10-10] MEDS ORDERED: MIDAZOLAM INJ 2 MG/2 ML VIAL (J2250) As Ordered ONE (09:29)
[2017-10-10] MEDS ORDERED: LIDOCAINE 2% INJ 100 MG/5 ML SDV (FOR ANES.) As Ordered ONE (09:29)
[2017-10-10] MEDS ORDERED: PHENYLephrine HCL 500 MCG/5 ML (100MCG/ML) SYRINGE (J2370) As Ordered ONE (09:29)
[2017-10-10] MEDS ORDERED: HYDROmorphone HCL 2 MG/ML 1ML VIAL (J1170) As Ordered ONE (09:29)
[2017-10-10] MEDS ORDERED: PROPOFOL 200 MG/20 ML VIAL As Ordered ONE (09:29)
[2017-10-10] MEDS ORDERED: ETOMIDATE INJ 20MG/10ML VIAL As Ordered ONE (09:30)
[2017-10-10] MEDS ORDERED: ceFAZolin 2 GM/D5W 50 ML IV BAG (J0690 PER 500MG) IV ONE (09:40)
[2017-10-10] MEDS ORDERED: NEOSTIGMINE 10 MG/10 ML VIAL (J2710) As Ordered ONE (09:47)
[2017-10-10] MEDS ORDERED: GLYCOPYRROLATE INJ 0.2 MG/ML 2 ML VIAL As Ordered ONE (09:47)
[2017-10-10] MEDS ORDERED: ONDANSETRON 4MG/2ML VIAL (J2405) As Ordered ONE (09:47)
[2017-10-10] MEDS ORDERED: PROTAMINE SULF INJ 50 MG/5 ML VIAL (J2720) As Ordered ONE (11:28)
[2017-10-10] MEDS ORDERED: THROMBIN SOLN 20,000 UNITS KIT As Ordered ONE (11:28)
[2017-10-10] MEDS ORDERED: MORPHINE 10 MG/ML 1ML VIAL IV PRN (12:30)
[2017-10-10] MEDS ORDERED: fentaNYL 100 MCG/2 ML INJECTION (J3010) IV PRN (12:30)
[2017-10-10] MEDS ORDERED: LR 1,000 ML IV SCH (12:30)
[2017-10-10] MEDS ORDERED: ONDANSETRON 4MG/2ML VIAL (J2405) IV PRN (12:30)
[2017-10-10] MEDS: MORPHINE 1MG/ML IN 0.9% NACL 100ML IV BAG IV PRN (19:49)
[2017-10-10] MEDS: **NOTE PATIENT COMMENT** MISC XX SCH (21:00)
[2017-10-10] MEDS: DOCUSATE SODIUM 100 MG CAP PO SCH (21:00)
[2017-10-10] MEDS: traZODone 100 MG TAB PO SCH (21:04)
[2017-10-11 02:00] VITALS: BP 98/56
[2017-10-11 06:00] VITALS: BP 121/63
[2017-10-11] MEDS: ALPRAZolam 0.25 MG TAB PO SCH ×3 (06:21→21:53)
[2017-10-11] MEDS: APIXABAN 5 MG TAB (ELIQUIS) PO SCH ×2 (07:36→21:53)
[2017-10-11] MEDS: GABAPENTIN 300 MG CAP PO SCH ×3 (07:37→21:53)
[2017-10-11] MEDS: VITAMIN D 50,000 UNITS CAPSULE (ERGOCALCIFEROL 1.25MG) PO SCH (07:37)
[2017-10-11] MEDS: FOLIC ACID 1 MG TAB PO SCH (07:37)
[2017-10-11 08:19] LABS: MEAN CORPUSCULAR HEMOGLOBIN 28.1 pg (27.0-33.0); MEAN CORPUSCULAR VOLUME 87.8 fl (80.0-96.0); PLATELET COUNT, AUTOMATED 103 10^3/uL (150-450); RED CELL DISTRIBUTION WIDTH 15.7 % (11.5-14.5)
[2017-10-11 08:54] VITALS: BP 117/63
[2017-10-11 09:11] LABS: ALBUMIN 2.3 GM/DL (3.2-5.2); CALCIUM LEVEL 8.5 MG/DL (8.5-10.1); CREATININE FOR GFR 6.33 MG/DL (0.55-1.02); GLOMERULAR FILTRATION RATE 7.5 (>58); PHOSPHORUS LEVEL 5.9 MG/DL (2.5-4.9); POTASSIUM SERUM 4.2 MEQ/L (3.5-5.1)
[2017-10-11] MEDS ORDERED: HEPARIN 1,000 UNITS/ML 10ML VIAL (FOR RADIOLOGY& DIALYSIS ONLY) XX ONE (11:15)
[2017-10-11] MEDS ORDERED: HEPARIN 1,000 UNITS/ML 10ML VIAL (FOR RADIOLOGY& DIALYSIS ONLY) IV ONE (11:15)
--- NOTE | 2017-10-11 12:35 | IPN ---
DATE OF VISIT: 10/11/2017 Mrs. Zheng is seen this morning on her bedside. She underwent right lower extremity angioplasty and possible endarterectomy. She feels better today and reports improved pain in her right lower extremity. She has a chronic nonhealing ulcer for which Dr. Gunderson is planning to do a debridement. Patient had significant blood loss during the procedure yesterday. She had received 2 units of packed RBCs on the day of admission due to severe anemia. PHYSICAL EXAMINATION: Temperature 96.8 degrees Fahrenheit, heart rate 86 per minute and respiratory rate 18 per minute. Blood pressure 117/63 mmHg and oxygen saturation 99% on room air. Head is atraumatic. Neck is supple and without JVD or thyroid enlargement. Pupils equal and reactive to light and sclera is anicteric. Ears, nose and throat are unremarkable. Heart exam regular and without a gallop or murmur. Lungs clear to auscultation. Abdomen soft and nontender and bowel sounds are normal. Extremities have no cyanosis or clubbing. Her right leg and heel ulcer are covered with dressing. Today's labs show WBC count 5.0, hemoglobin 7.8 and hematocrit 24.4. Sodium 137 and potassium 4.2. BUN 26 and creatinine 6.33. Calcium level is 8.5, phosphorus 5.9 and albumin 2.3. PROBLEMS: 1. End-stage renal disease. The patient is going to be dialyzed today. There is a plan for wound debridement tomorrow and then we will try to switch her back to her regular dialysis schedule. 2. Anemia. She had acute blood loss due to surgical procedure. We will transfuse her two more units of packed RBCs today during dialysis. 3. Peripheral vascular disease and nonhealing ulcer. The patient already had endarterectomy and angioplasty of her right lower extremity. Further plans will be per Dr. Gunderson. From a renal standpoint, the patient is stable for the procedure if she needs any further angioplasty. 4. Secondary hyperparathyroidism and hyperphosphatemia. This has been a chronic issue. The patient will continue with current phosphate binders. We will check her intact PTH level as an outpatient.
[2017-10-11 18:00] VITALS: BP 164/87
[2017-10-11] MEDS: D5W/0.9% SODIUM CHLORIDE 1,000 ML IV SCH (18:15)
[2017-10-11] MEDS: **NOTE PATIENT COMMENT** MISC XX SCH (21:00)
[2017-10-11] MEDS: DOCUSATE SODIUM 100 MG CAP PO SCH (21:00)
[2017-10-11] MEDS: traZODone 100 MG TAB PO SCH (21:53)
[2017-10-11] MEDS: ACETAMINOPHEN 500 MG TAB PO PRN (21:53)
[2017-10-11 22:00] VITALS: BP 119/74
[2017-10-12] MEDS: ALPRAZolam 0.25 MG TAB PO SCH ×3 (05:57→22:03)
[2017-10-12] MEDS: ACETAMINOPHEN 500 MG TAB PO PRN ×2 (05:57→13:56)
[2017-10-12 06:00] VITALS: BP 108/67
[2017-10-12] MEDS: APIXABAN 5 MG TAB (ELIQUIS) PO SCH ×2 (08:58→21:00)
[2017-10-12] MEDS: FOLIC ACID 1 MG TAB PO SCH (08:58)
[2017-10-12] MEDS: CINACALCET 30 MG TAB (SENSIPAR) PO SCH (08:58)
[2017-10-12] MEDS: GABAPENTIN 300 MG CAP PO SCH ×3 (08:58→22:03)
[2017-10-12 10:00] VITALS: BP 118/73
[2017-10-12] MEDS ORDERED: HEPARIN 1,000 UNITS/ML 10ML VIAL (FOR RADIOLOGY& DIALYSIS ONLY) IV ONE (12:00)
[2017-10-12] MEDS: D5W/0.9% SODIUM CHLORIDE 1,000 ML IV SCH (13:56)
[2017-10-12 14:00] VITALS: BP 144/84
[2017-10-12 18:00] VITALS: BP 146/84
[2017-10-12] MEDS: **NOTE PATIENT COMMENT** MISC XX SCH (21:00)
[2017-10-12] MEDS: DAKIN'S 0.25% HALF-STRENGTH SOLN 480 ML TOP SCH (21:00)
[2017-10-12] MEDS: DOCUSATE SODIUM 100 MG CAP PO SCH (21:00)
--- NOTE | 2017-10-12 21:37 | IPN ---
DATE: 10/12/2017 Ms. Zheng is seen this morning on her bedside. She was scheduled for her right leg wound debridement. However, it was cancelled due to emergent cases. The patient is feeling better and reports improved pain in her right thigh. She denies any nausea, vomiting, dyspnea or chest pain. She remains on patient-controlled analgesia (CHEMIST ASSISTANT). PHYSICAL EXAMINATION: On physical examination, temperature 98.7 degrees Fahrenheit, heart rate 72 per minute and respiratory rate 16 per minute. Blood pressure 108/67 mmHg and oxygen saturation 94%. Her head is atraumatic. Neck is supple and without jugular venous distention (JVD) or thyroid enlargement. She has a left sided Perma-Cath for dialysis on her upper chest. Heart sounds are regular and lungs clear to auscultation. Abdomen is soft and nontender and bowel sounds are normal. Extremities have no cyanosis or clubbing. Skin has a large ulcer on her right leg which is covered with a dressing. Neurologically, she is awake, alert and oriented times three. The patient did not have any new laboratories today. PROBLEMS: 1. End-stage renal disease. We have planned to dialyze her either later today afternoon or tomorrow morning. Due to too many emergent dialysis patients in the hospital, we could not get her on the schedule for this morning. Her electrolytes have been stable and volume status is well-compensated, so there is no emergent need for dialysis at present. 2. Anemia. She had acute blood loss anemia. The patient has been transfused a total of four units so far since admission. Her laboratories will be repeated tomorrow morning. 3. Right leg ulcer and peripheral vascular disease. The patient underwent angioplasty and endarterectomy of her right femoral artery. She needs debridement of her wound and Dr. Gunderson is trying to get her on the schedule. Currently, she is off her anticoagulation. 4. Pain management. The patient remains on patient-controlled analgesia (CHEMIST ASSISTANT) for pain control. 5. Hypertension. Blood pressure is very well-controlled on current antihypertensive medications.
[2017-10-12 22:00] VITALS: BP 149/84
[2017-10-12] MEDS: traZODone 100 MG TAB PO SCH (22:03)
[2017-10-13] VITALS (9 sets, daily range): BP systolic 108–180; BP diastolic 66–90
[2017-10-13] MEDS: ALPRAZolam 0.25 MG TAB PO SCH ×3 (06:04→20:07)
[2017-10-13] MEDS: GABAPENTIN 300 MG CAP PO SCH ×3 (06:04→19:58)
[2017-10-13] MEDS: FOLIC ACID 1 MG TAB PO SCH (06:04)
[2017-10-13] MEDS: APIXABAN 5 MG TAB (ELIQUIS) PO SCH ×2 (06:04→19:58)
[2017-10-13] MEDS: DAKIN'S 0.25% HALF-STRENGTH SOLN 480 ML TOP SCH ×3 (09:00→20:48)
[2017-10-13] MEDS: D5W/0.9% SODIUM CHLORIDE 1,000 ML IV SCH (10:45)
[2017-10-13 12:30] LABS: MEAN CORPUSCULAR HEMOGLOBIN 28.3 pg (27.0-33.0); MEAN CORPUSCULAR HGB CONC 31.7 g/dl (32.0-36.5); MEAN CORPUSCULAR VOLUME 89.2 fl (80.0-96.0); PLATELET COUNT, AUTOMATED 113 10^3/uL (150-450); RED CELL DISTRIBUTION WIDTH 14.8 % (11.5-14.5)
[2017-10-13 12:53] LABS: ALBUMIN 2.3 GM/DL (3.2-5.2); CALCIUM LEVEL 8.7 MG/DL (8.5-10.1); CREATININE FOR GFR 6.75 MG/DL (0.55-1.02); GLOMERULAR FILTRATION RATE 6.9 (>58); PHOSPHORUS LEVEL 5.5 MG/DL (2.5-4.9); POTASSIUM SERUM 4.4 MEQ/L (3.5-5.1)
[2017-10-13] MEDS: MORPHINE 1MG/ML IN 0.9% NACL 100ML IV BAG IV PRN (12:56)
[2017-10-13] MEDS ORDERED: HEPARIN 1,000 UNITS/ML 10ML VIAL (FOR RADIOLOGY& DIALYSIS ONLY) XX ONE (15:15)
[2017-10-13] MEDS ORDERED: MIDAZOLAM INJ 2 MG/2 ML VIAL (J2250) As Ordered ONE (17:39)
[2017-10-13] MEDS ORDERED: LIDOCAINE 2% INJ 100 MG/5 ML SDV (FOR ANES.) As Ordered ONE (17:43)
[2017-10-13] MEDS ORDERED: fentaNYL 100 MCG/2 ML INJECTION (J3010) As Ordered ONE ×2 (17:43→18:47)
[2017-10-13] MEDS ORDERED: PROPOFOL 200 MG/20 ML VIAL As Ordered ONE (17:43)
[2017-10-13] MEDS: fentaNYL 100 MCG/2 ML INJECTION (J3010) IV PRN ×4 (18:51→19:06)
[2017-10-13] MEDS ORDERED: ONDANSETRON 4MG/2ML VIAL (J2405) IV PRN ×2 (19:00→19:30)
[2017-10-13] MEDS ORDERED: MORPHINE 4 MG/ML 1ML SYRINGE As Ordered ONE (19:14)
[2017-10-13] MEDS ORDERED: fentaNYL 100 MCG/2 ML INJECTION (J3010) IV PRN (19:30)
[2017-10-13] MEDS ORDERED: MORPHINE 10 MG/ML 1ML VIAL IV SCH (19:30)
[2017-10-13] MEDS: traZODone 100 MG TAB PO SCH (19:57)
[2017-10-13] MEDS: DOCUSATE SODIUM 100 MG CAP PO SCH (19:58)
[2017-10-13] MEDS: **NOTE PATIENT COMMENT** MISC XX SCH (20:00)
--- NOTE | 2017-10-13 20:00 | IPN ---
DATE: 10/13/2017 Ms Zheng is seen during hemodialysis this afternoon. She is feeling well and tolerating her dialysis treatment well. She denies any dyspnea, chest pain, nausea or vomiting. She does have pain in her right lower leg wound area and is hoping to get her surgical debridement done today. She has no fever or chills at this point. PHYSICAL EXAMINATION: Temperature is 98 degrees Fahrenheit, heart rate 86 per minute and respiratory rate 18 per minute. Blood pressure 124/75 mmHg and oxygen saturation 96% on room air. Head: Is atraumatic. Neck is supple and without jugular venous distention (JVD) or thyroid enlargement. Pupils equal and reactive to light and sclera is anicteric. Heart: Sounds regular with systolic murmur grade 2 x 6. Lungs: Clear to auscultation. Abdomen: Soft and nontender and bowel sounds are normal. There is no palpable organomegaly. Extremities: Have no cyanosis or clubbing. Right leg wound is wrapped in dressing. Neurologically she is awake, alert and oriented times three. Today's labs which were drawn during dialysis have come back and show a sodium level of 136 and potassium 4.4. BUN 31 and creatinine 6.75. Calcium 8.7 and phosphorus 5.5. WBC count 5.0, hemoglobin 10.0 and hematocrit 31.5. Platelets 113. PROBLEMS: 1. End-stage renal disease. The patient is tolerating her dialysis treatment well. We are trying to remove about 2.5 liters fluid as tolerated. 2. Anemia. Her anemia has improved following transfusion. She has already received a total of 6 units of packed RBCs including 2 units today. She is scheduled for wound debridement later today and is likely to have blood loss. CBC will be checked again at next dialysis. She is a hard stick and has no peripheral veins and due to it, lab is unable to draw her labs. 3. Peripheral vascular disease. The patient had right lower extremity femoral artery angioplasty and endarterectomy done. I will defer to Dr. Gunderson for further vascular evaluations and interventions. She is scheduled for her wound debridement later today. 4. Pain management. Pain control remains with Dr. Gunderson.
[2017-10-14 00:45] VITALS: BP 107/62
[2017-10-14 02:00] VITALS: BP 124/71
[2017-10-14] MEDS: ALPRAZolam 0.25 MG TAB PO SCH ×3 (05:34→21:23)
[2017-10-14 06:00] VITALS: BP 134/80
[2017-10-14] MEDS: CINACALCET 30 MG TAB (SENSIPAR) PO SCH (08:43)
[2017-10-14] MEDS: FOLIC ACID 1 MG TAB PO SCH (08:43)
[2017-10-14] MEDS: APIXABAN 5 MG TAB (ELIQUIS) PO SCH ×2 (08:43→21:23)
[2017-10-14] MEDS: GABAPENTIN 300 MG CAP PO SCH ×3 (08:43→21:24)
[2017-10-14] MEDS: DAKIN'S 0.25% HALF-STRENGTH SOLN 480 ML TOP SCH ×3 (08:44→23:50)
[2017-10-14] MEDS: D5W/0.9% SODIUM CHLORIDE 1,000 ML IV SCH (10:45)
[2017-10-14 14:00] VITALS: BP 129/76
[2017-10-14] MEDS: DOCUSATE SODIUM 100 MG CAP PO SCH (21:23)
[2017-10-14] MEDS: traZODone 100 MG TAB PO SCH (21:23)
[2017-10-14] MEDS: **NOTE PATIENT COMMENT** MISC XX SCH (21:24)
[2017-10-14 22:00] VITALS: BP 130/84
--- NOTE | 2017-10-14 22:53 | IPN ---
DATE: 10/14/2017 Ms Zhneg is seen this afternoon on her bed side. She underwent debridement of her right lower extremity wound yesterday by Dr. Gunderson. She complains of significant pain in her leg. She has been on REMEDIATION CONSULTANT morphine drip for pain control. Physical exam; BP 134/80 mmHg, H/R = 80/min., R/R = 18/min., O2 sat 98% on RA. Temp. 96.3F HEART; Regular rate and rhythm. LUNGS; Clear bilaterally ABDOMEN; Soft and non tender. Bowel sounds present. EXTREMITIES; No cyanosis or clubbing. Right leg wrapped in dressing NEURO. Grossly intact. Awake, alert and oriented x 3. PROBLEMS: Patient underwent last HD on October 12. Our plan is to schedule her dialysis for tomorrow. Anemia. She has received transfusions and her CBC will be repeated again tomorrow prior to dialysis. History of secondary hyperparathyroidism. Patient will continue with Sensipar and phosphate binders. Her phosphorous levels have improved significantly since she is in hospital. Her renal profile will be checked again tomorrow. MTDD
[2017-10-15 06:00] VITALS: BP 123/71
[2017-10-15] MEDS: ALPRAZolam 0.25 MG TAB PO SCH ×3 (06:43→22:07)
[2017-10-15] MEDS: APIXABAN 5 MG TAB (ELIQUIS) PO SCH ×2 (07:43→22:02)
[2017-10-15] MEDS: GABAPENTIN 300 MG CAP PO SCH ×3 (07:43→22:02)
[2017-10-15] MEDS: FOLIC ACID 1 MG TAB PO SCH (07:43)
[2017-10-15] MEDS: ACETAMINOPHEN 500 MG TAB PO PRN (07:43)
[2017-10-15] MEDS: DAKIN'S 0.25% HALF-STRENGTH SOLN 480 ML TOP SCH ×4 (07:44→21:00)
[2017-10-15] MEDS ORDERED: OXYC-405 PO (08:55)
[2017-10-15 09:28] LABS: MEAN CORPUSCULAR HEMOGLOBIN 28.2 pg (27.0-33.0); MEAN CORPUSCULAR HGB CONC 32.2 g/dl (32.0-36.5); MEAN CORPUSCULAR VOLUME 87.6 fl (80.0-96.0); PLATELET COUNT, AUTOMATED 116 10^3/uL (150-450); RED CELL DISTRIBUTION WIDTH 15.1 % (11.5-14.5); WHITE BLOOD COUNT 5.8 10^3/uL (4.0-10.0)
[2017-10-15 09:40] LABS: ALBUMIN 2.2 GM/DL (3.2-5.2); CALCIUM LEVEL 8.3 MG/DL (8.5-10.1); CREATININE FOR GFR 6.55 MG/DL (0.55-1.02); GLOMERULAR FILTRATION RATE 7.2 (>58); PHOSPHORUS LEVEL 5.7 MG/DL (2.5-4.9); POTASSIUM SERUM 3.8 MEQ/L (3.5-5.1)
[2017-10-15] MEDS ORDERED: HEPARIN 1,000 UNITS/ML 10ML VIAL (FOR RADIOLOGY& DIALYSIS ONLY) XX ONE (09:45)
[2017-10-15] MEDS ORDERED: HEPARIN 1,000 UNITS/ML 10ML VIAL (FOR RADIOLOGY& DIALYSIS ONLY) IV ONE (09:45)
[2017-10-15] MEDS: oxyCODONE 20 MG CR TAB PO SCH ×2 (11:07→22:02)
[2017-10-15] MEDS ORDERED: MORPHINE 10 MG/ML 1ML VIAL As Ordered ONE (11:36)
[2017-10-15] MEDS ORDERED: MORPHINE 10 MG/ML 1ML VIAL IM ONE (11:45)
[2017-10-15] MEDS ORDERED: MORPHINE 10 MG/ML 1ML VIAL IV ONE (12:00)
[2017-10-15] MEDS: (RENVELA) SEVELAMER **CARBONate** 800 MG TAB PO SCH ×2 (13:09→17:45)
--- NOTE | 2017-10-15 13:37 | IPN ---
DATE: 10/15/2017 Mrs. Zheng is seen during hemodialysis on her bedside. She is feeling better but continues to have pain in her right calf area wound. She denies any nausea, vomiting, dyspnea or chest pain. PHYSICAL EXAMINATION: Temperature 96.2 degrees Fahrenheit, heart rate 74 per minute and respiratory rate 18 per minute. Blood pressure 123/70 mmHg and oxygen saturation 97% on room air. Head: Is atraumatic. Pupils equal and reactive to light and sclera is anicteric. Neck is supple and without jugular venous distention (JVD) or thyroid enlargement. Heart: Sounds regular and lungs clear to auscultation. Abdomen: Soft and benign. Bowel sounds are normal. Extremities have no cyanosis or clubbing. Right leg wound is wrapped in dressing. Today's labs show WBC count 5.8, hemoglobin 10.9 and hematocrit 33.9. Sodium 136 and potassium 3.8. BUN 34 and creatinine 6.55. Calcium 8.3 and phosphorus 5.7. PROBLEMS: 1. End-stage renal disease: The patient is being dialyzed today. She is tolerating her dialysis treatment very well. 2. Anemia: Her anemia has improved following transfusion. We will continue to monitor closely. She will be started on Aranesp as appropriate. 3. Hypertension: Blood pressure control has been optimal on current medications. No changes are being made today. 4. Hyperphosphatemia: She has mild elevated phosphorus level and I am starting her on Renvela 800 mg three times a day with meals. 5. Peripheral vascular disease with right leg large area ulcers. The patient underwent the bright meant of her wound couple of days ago. She also already had an endarterectomy of the right femoral artery. She continues with wound care and pain management per Dr. Gunderson.
[2017-10-15] MEDS ORDERED: NORCO, ANEXSIA 5/325MG TABLET (HYDROcodone/ACETAMINOPHEN) As Ordered ONE (13:42)
[2017-10-15] MEDS ORDERED: NORCO, ANEXSIA 5/325MG TABLET (HYDROcodone/ACETAMINOPHEN) PO ONE (13:45)
[2017-10-15] MEDS ORDERED: MORPHINE 4 MG/ML 1ML SYRINGE IV PRN (15:30)
[2017-10-15 22:00] VITALS: BP 105/57
[2017-10-15] MEDS: traZODone 100 MG TAB PO SCH (22:02)
[2017-10-15] MEDS: DOCUSATE SODIUM 100 MG CAP PO SCH (22:02)
[2017-10-15] MEDS: **NOTE PATIENT COMMENT** MISC XX SCH (22:04)
[2017-10-16] MEDS: ACETAMINOPHEN 500 MG TAB PO PRN (04:07)
[2017-10-16] MEDS: ALPRAZolam 0.25 MG TAB PO SCH ×3 (05:46→20:31)
[2017-10-16 06:00] VITALS: BP 133/83
[2017-10-16] MEDS: DAKIN'S 0.25% HALF-STRENGTH SOLN 480 ML TOP SCH ×3 (09:00→20:35)
[2017-10-16] MEDS: oxyCODONE 20 MG CR TAB PO SCH ×2 (11:52→20:32)
[2017-10-16] MEDS: GABAPENTIN 300 MG CAP PO SCH ×3 (11:52→20:31)
[2017-10-16] MEDS: CINACALCET 30 MG TAB (SENSIPAR) PO SCH (11:53)
[2017-10-16] MEDS: APIXABAN 5 MG TAB (ELIQUIS) PO SCH ×2 (11:55→20:31)
[2017-10-16] MEDS: FOLIC ACID 1 MG TAB PO SCH (11:55)
[2017-10-16] MEDS: (RENVELA) SEVELAMER **CARBONate** 800 MG TAB PO SCH ×3 (11:56→18:49)
[2017-10-16 14:00] VITALS: BP 136/84
[2017-10-16] MEDS ORDERED: NORCO, ANEXSIA 5/325MG TABLET (HYDROcodone/ACETAMINOPHEN) PO STA (14:09)
[2017-10-16] MEDS ORDERED: DOCUSATE SODIUM 100 MG CAP PO ONE (14:30)
--- NOTE | 2017-10-16 18:26 | IPN ---
DATE: 10/16/2017 SUBJECTIVE: The patient is seen this morning at the bedside. She is out of bed to the chair and holding onto her right knee. She is tearful and complains of significant pain. Apparently, her intravenous (IV) morphine is only given with dressing change, and now her dressing changes have been reduced to every 3 days. The patient had hemodialysis yesterday without any acute events and tolerated it well. VITAL SIGNS: Temperature 97.6, pulse 86, respiratory rate 18, blood pressure 133/83, saturating 97% on room air. Intake and output: Hemodialysis yesterday removed 3.5 liters. Weight in the bed scale today is 84.1 kg. GENERAL: The patient is seen sitting out of bed to the chair. She is tearful and in painful distress from her right lower extremity. HEAD AND NECK: Extraocular muscles are intact. The oral mucosa is moist. The ears, nose, and throat are unremarkable. There is no jugular venous distention. CARDIAC: S1, S2, regular rate and rhythm. LUNGS: Clear to auscultation bilaterally. Comfortable on room air. ABDOMEN: Soft, nontender. Positive bowel sounds. EXTREMITIES: The right lower extremity wound is wrapped in dressings, which are clean, dry, and intact, and there are also small dressings at the right femoral area. LABORATORY DATA: There are no new labs today. INPATIENT MEDICATIONS: The patient's pain regimen includes 4 mg IV morphine with dressing changes, OxyContin 40 mg by mouth twice a day, acetaminophen as needed, Lidoderm patch daily, [place] one tablet by mouth every 4 hourly as needed. The remainder of medications are unchanged from prior. PROBLEMS: 1. End-stage renal disease, on hemodialysis. The patient is currently off her maintenance schedule of Wednesday, , Wednesday. Next week we will try to get her back on maintenance schedule. She tolerated hemodialysis yesterday, October 15, without any issue. 2. Anemia. The patient's hemoglobin is currently at goal. We will continue to monitor. She will be started on Aranesp when appropriate. 3. Hypertension. The patient's blood pressures are at present well controlled on current regimen with no changes being made. She is, in fact, not on antihypertensives. 4. Hyperphosphatemia with normal corrected calcium. The patient continues on Renvela with meals. 5. Peripheral vascular disease with right leg ulceration. The patient underwent debridement of her wound and is status post endarterectomy of the right femoral artery. She continues with wound care and pain management per Dr. Gunderson and Dr. Corley.
[2017-10-16] MEDS: traZODone 100 MG TAB PO SCH (20:31)
[2017-10-16] MEDS: **NOTE PATIENT COMMENT** MISC XX SCH (20:32)
[2017-10-16] MEDS: DOCUSATE SODIUM 100 MG CAP PO SCH (20:32)
[2017-10-16 22:00] VITALS: BP 133/78
[2017-10-17] MEDS: NORCO, ANEXSIA 5/325MG TABLET (HYDROcodone/ACETAMINOPHEN) PO PRN ×3 (05:26→17:59)
[2017-10-17] MEDS: ALPRAZolam 0.25 MG TAB PO SCH ×3 (05:26→21:54)
[2017-10-17 06:00] VITALS: BP 126/69
[2017-10-17 06:12] LABS: BASO # 0.1 10^3/uL (0.0-0.2); BASO % 0.8 % (0.0-1.0); EOS # 0.1 10^3/uL (0.0-0.50); EOS % 1.8 % (0.0-3.0); IMMATURE GRANULOCYTE % 0.6 % (0-0); LYMPH # 1.2 10^3/uL (1.5-4.5); LYMPH % 18.5 % (24.0-44.0); MEAN CORPUSCULAR HEMOGLOBIN 28.1 pg (27.0-33.0); MEAN CORPUSCULAR HGB CONC 32.2 g/dl (32.0-36.5); MEAN CORPUSCULAR VOLUME 87.2 fl (80.0-96.0); MONO # 0.7 10^3/uL (0.0-0.8); MONO % 11.6 % (0.0-5.0); NEUTROPHILS # 4.2 10^3/uL (1.8-7.7); NEUTROPHILS % 66.7 % (36.0-66.0); PLATELET COUNT, AUTOMATED 118 10^3/uL (150-450); RED CELL DISTRIBUTION WIDTH 14.8 % (11.5-14.5); WHITE BLOOD COUNT 6.2 10^3/uL (4.0-10.0)
[2017-10-17 06:35] LABS: CALCIUM LEVEL 9.5 MG/DL (8.5-10.1); CREATININE FOR GFR 6.66 MG/DL (0.55-1.02)
[2017-10-17 06:48] LABS: PHOSPHORUS LEVEL 4.5 MG/DL (2.5-4.9); POTASSIUM SERUM 4.7 MEQ/L (3.5-5.1)
[2017-10-17] MEDS: GABAPENTIN 300 MG CAP PO SCH ×3 (08:49→21:53)
[2017-10-17] MEDS: FOLIC ACID 1 MG TAB PO SCH (08:49)
[2017-10-17] MEDS: APIXABAN 5 MG TAB (ELIQUIS) PO SCH ×2 (08:49→21:54)
[2017-10-17] MEDS: (RENVELA) SEVELAMER **CARBONate** 800 MG TAB PO SCH ×3 (08:49→17:59)
[2017-10-17] MEDS: oxyCODONE 20 MG CR TAB PO SCH ×2 (08:50→21:54)
[2017-10-17] MEDS: DAKIN'S 0.25% HALF-STRENGTH SOLN 480 ML TOP SCH ×3 (09:00→19:03)
[2017-10-17 14:00] VITALS: BP 119/68
[2017-10-17] MEDS: **NOTE PATIENT COMMENT** MISC XX SCH (21:00)
[2017-10-17] MEDS: DOCUSATE SODIUM 100 MG CAP PO SCH (21:55)
[2017-10-17] MEDS: traZODone 100 MG TAB PO SCH (21:55)
[2017-10-17 22:00] VITALS: BP 118/73
--- NOTE | 2017-10-18 02:39 | IPN ---
DATE OF SERVICE: 10/17/2017 SUBJECTIVE: The patient is seen this morning at the bedside. She is in very good spirits today. Denies any complaints. States her pain is very well controlled. Reports a good appetite. States she is having trouble weight bearing on her right lower extremity and her discharge was held due to the same. VITAL SIGNS: Temperature 97.2, pulse 74, respiratory rate 18, blood pressure 126/69, saturating 98% on room air. Intake and output: Oral intake yesterday 1080 mL. Weight in the bed scale today is 84.3. PHYSICAL EXAMINATION: GENERAL: The patient is seen in bed comfortable in no acute distress in very good spirits. HEAD AND NECK: Extraocular muscles are intact. The oral mucosa is moist. Ears, nose, and throat are unremarkable. There is no jugular venous distention. CARDIAC: S1, S2, regular rate and rhythm. LUNGS: Clear to auscultation. She is comfortable on room air. ABDOMEN: Soft, nontender. Positive bowel sounds. EXTREMITIES: The right lower extremity wound is wrapped in dressings. Her bilateral upper extremities have failed arteriovenous (AV) graft and AV fistulas. She has a PermaCath present in the left subclavian which has a dressing. Neurologic: oriented X4, no deficits LABORATORIES: White count 6.2, hemoglobin 11.6, platelets 118. Sodium 133, potassium 4.7, bicarbonate 25, phosphorus 4.5. INPATIENT MEDICATIONS: The patient's medications are unchanged from prior. PROBLEMS: 1. End-stage renal disease on hemodialysis: The patient is currently off of her maintenance schedule of Wednesday, , Wednesday. Her next dialysis treatment will be on Wednesday, 10/18. 2. Anemia: The patient's hemoglobin is currently at goal. 3. Peripheral vascular disease with right leg ulceration status post debridement of right lower extremity wound and status post endarterectomy of the right femoral artery. She continues with wound care and pain management per Dr. Gunderson and Dr. Corley. [facility]
[2017-10-18 06:00] VITALS: BP 127/73
[2017-10-18] MEDS: MIRALAX *UNIT DOSE* 17GM PACKET PO PRN (06:22)
[2017-10-18] MEDS: NORCO, ANEXSIA 5/325MG TABLET (HYDROcodone/ACETAMINOPHEN) PO PRN ×2 (06:23→14:25)
[2017-10-18] MEDS: FOLIC ACID 1 MG TAB PO SCH (06:23)
[2017-10-18] MEDS: ALPRAZolam 0.25 MG TAB PO SCH ×3 (06:23→21:32)
[2017-10-18] MEDS: VITAMIN D 50,000 UNITS CAPSULE (ERGOCALCIFEROL 1.25MG) PO SCH (06:23)
[2017-10-18] MEDS: (RENVELA) SEVELAMER **CARBONate** 800 MG TAB PO SCH ×3 (06:24→18:05)
[2017-10-18] MEDS: GABAPENTIN 300 MG CAP PO SCH ×3 (06:24→21:32)
[2017-10-18] MEDS: APIXABAN 5 MG TAB (ELIQUIS) PO SCH ×2 (06:24→21:32)
[2017-10-18] MEDS: DAKIN'S 0.25% HALF-STRENGTH SOLN 480 ML TOP SCH ×3 (09:00→21:00)
[2017-10-18] MEDS: oxyCODONE 20 MG CR TAB PO SCH ×2 (09:29→21:34)
[2017-10-18] MEDS ORDERED: HEPARIN 1,000 UNITS/ML 10ML VIAL (FOR RADIOLOGY& DIALYSIS ONLY) XX ONE (12:15)
[2017-10-18] MEDS ORDERED: HEPARIN 1,000 UNITS/ML 10ML VIAL (FOR RADIOLOGY& DIALYSIS ONLY) IV ONE (12:15)
[2017-10-18] MEDS: ACETAMINOPHEN 500 MG TAB PO PRN (16:54)
[2017-10-18] MEDS: **NOTE PATIENT COMMENT** MISC XX SCH (21:00)
--- NOTE | 2017-10-18 21:01 | IPN ---
DATE: 09/18/2017 SUBJECTIVE: The patient is seen this morning at hemodialysis tolerating her treatment well without any issues. She reports no acute overnight events. Reports that she was able to stand and weight bear on her right lower extremity and had physical therapy this morning. VITAL SIGNS: Temperature 97.1, pulse 72, respiratory rate 18, blood pressure 127/73 saturating 93% to 97% on room air. Intake and output: Hemodialysis today removed 3500 mL ultrafiltration. Oral intake yesterday was 1440 mL. Weight in the bed scale today is 85.1 kg. PHYSICAL EXAMINATION: GENERAL: The patient is seen on hemodialysis, comfortable and in good spirits, in no acute distress in very good spirits. HEAD AND NECK: Extraocular muscles are intact. The oral mucosa is moist. The neck is supple. CARDIAC: S1, S2, 2+ radial pulse, no edema in the lower extremities. LUNGS: Clear to auscultation. She is comfortable on room air. ABDOMEN: Soft, nontender. There are positive bowel sounds. EXTREMITIES: The right lower extremity wound is wrapped in dressings. Clean, dry and intact. The bilateral upper extremities have failed grafts and fistulas. She has a PermaCath present in the left subclavian. NEUROLOGIC: She is at her baseline mentation oriented times four. PSYCHIATRIC: Appropriate mood and affect. SKIN: Warm with normal turgor. LABORATORIES: There are no new labs today. I have ordered lab for the morning. INPATIENT MEDICATIONS: Reviewed by myself, there is no significant change in the past 24 hours. PROBLEMS: 1. End-stage renal disease on hemodialysis: The patient is currently off of her maintenance schedule of Wednesday, , Wednesday. She tolerated dialysis well today with ultrafiltration of 3500 mL. She is euvolemic at exam and laboratory studies have been fairly reasonable for end stage renal disease. 2. Anemia of chronic kidney disease. The patient's hemoglobin has been goal. She has received multiple units of packed red blood cells during the course of this admission. 3. Right leg ulcer and peripheral vascular disease. The patient is status post right femoral endarterectomy and local wound debridement. She continues on pain control and local wound care as per Dr. Gunderson and Dr. Corley. She states that her pain is very well controlled at present.
[2017-10-18] MEDS: traZODone 100 MG TAB PO SCH (21:32)
[2017-10-18] MEDS: DOCUSATE SODIUM 100 MG CAP PO SCH (21:32)
[2017-10-18 22:00] VITALS: BP 108/68
[2017-10-19] MEDS: NORCO, ANEXSIA 5/325MG TABLET (HYDROcodone/ACETAMINOPHEN) PO PRN ×3 (01:41→13:49)
[2017-10-19 06:00] VITALS: BP 108/78
[2017-10-19] MEDS: ALPRAZolam 0.25 MG TAB PO SCH ×3 (06:13→21:45)
[2017-10-19 07:07] LABS: MEAN CORPUSCULAR HEMOGLOBIN 28.4 pg (27.0-33.0); MEAN CORPUSCULAR HGB CONC 32.4 g/dl (32.0-36.5); MEAN CORPUSCULAR VOLUME 87.7 fl (80.0-96.0); PLATELET COUNT, AUTOMATED 116 10^3/uL (150-450); RED CELL DISTRIBUTION WIDTH 14.7 % (11.5-14.5); WHITE BLOOD COUNT 5.8 10^3/uL (4.0-10.0)
[2017-10-19 07:12] LABS: CALCIUM LEVEL 9.5 MG/DL (8.5-10.1); CREATININE FOR GFR 5.31 MG/DL (0.55-1.02); GLOMERULAR FILTRATION RATE 9.1 (>58); POTASSIUM SERUM 4.6 MEQ/L (3.5-5.1)
[2017-10-19] MEDS: DAKIN'S 0.25% HALF-STRENGTH SOLN 480 ML TOP SCH ×3 (09:00→21:00)
[2017-10-19] MEDS: FOLIC ACID 1 MG TAB PO SCH (09:04)
[2017-10-19] MEDS: oxyCODONE 20 MG CR TAB PO SCH (09:05)
[2017-10-19] MEDS: APIXABAN 5 MG TAB (ELIQUIS) PO SCH ×2 (09:05→21:45)
[2017-10-19] MEDS: CINACALCET 30 MG TAB (SENSIPAR) PO SCH (09:05)
[2017-10-19] MEDS: (RENVELA) SEVELAMER **CARBONate** 800 MG TAB PO SCH ×3 (09:06→18:30)
[2017-10-19] MEDS: GABAPENTIN 300 MG CAP PO SCH ×3 (09:06→21:45)
--- NOTE | 2017-10-19 12:41 | IPN ---
DATE: 10/19/2017 SUBJECTIVE: The patient is seen this morning at the bedside. She is in good spirits. Reports that she had physical therapy (PT) this morning and was able to stand. Is tolerating oral intake well without issue. Had hemodialysis yesterday with 3500 mL ultrafiltration, which was uneventful. Her pain is well controlled. VITAL SIGNS: Temperature 96.7, pulse 68, respiratory rate 16, blood pressure 108/70, saturating 98% on room air. Intake and output: Oral intake was incompletely recorded yesterday. Hemodialysis output was 3500 mL. Weight on the bed scale today is 87.6, which is likely inaccurate and increased from prior. GENERAL: The patient is seen in bed comfortable. No acute distress. In good spirits. HEAD AND NECK: Extraocular muscles are intact. Oral mucosa is moist. Ears, nose and throat are unremarkable. CARDIAC: S1, S2, 2+ radial pulse. There is no edema in the lower extremities. LUNGS: Clear to auscultation. She is comfortable on room air. ABDOMEN: Soft, nontender. There are positive bowel sounds. There are also scattered subdermal nodules that are appreciable through the belly. EXTREMITIES: The bilateral upper extremities have failed accesses. There is a PermaCath in the left subclavian. NEUROLOGIC: She is at her baseline mentation. Oriented times four. EXTREMITIES: She has a PermaCath in the left subclavian and the right lower extremity has dressings that are clean, dry and intact. PSYCHIATRIC: Appropriate mood and affect. LABORATORIES: White count 5.8, hemoglobin 11.3, platelets 116. Sodium 134, potassium 4.6, bicarbonate 25, calcium 9.5, phosphorous 4.5 two days prior. INPATIENT MEDICATIONS: Reviewed by myself and no change from prior. PROBLEMS: 1. End-stage renal disease on hemodialysis: The patient is currently off of her maintenance schedule of Wednesday, , Wednesday. She tolerated dialysis well yesterday with ultrafiltration of 3500 mL. Her next hemodialysis treatment will be 10/20/2017. She is fairly euvolemic on examination. She has a mild hyponatremia, which will improve with dialysis and ultrafiltration. 2. Anemia of chronic kidney disease. She has received multiple units of packed red blood cells during the course of this admission. Hemoglobin, at present, been stable and at goal for chronic kidney disease. 3. 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 The patient continues on Sensipar and Renvela and vitamin D. Most recent phosphorous level was 4.5, which is appropriate. Calcium is 9.5 without albumin for correction. 4. Right leg ulcer and peripheral vascular disease. Pain management and local wound care as per Dr. Gunderson and Dr. Corley. The patient is receiving physical therapy and may require rehabilitation.
[2017-10-19 14:00] VITALS: BP 181/105
[2017-10-19] MEDS: **NOTE PATIENT COMMENT** MISC XX SCH (21:00)
[2017-10-19] MEDS: DOCUSATE SODIUM 100 MG CAP PO SCH (21:45)
[2017-10-19] MEDS: traZODone 100 MG TAB PO SCH (21:45)
[2017-10-19] MEDS: MORPHINE 30 MG SA TAB PO SCH (21:46)
[2017-10-19 22:00] VITALS: BP 145/75
[2017-10-20] MEDS: MORPHINE 30 MG TAB **MSIR PO PRN ×3 (02:10→16:44)
[2017-10-20 06:00] VITALS: BP 133/70
[2017-10-20] MEDS: ALPRAZolam 0.25 MG TAB PO SCH ×3 (06:24→21:14)
[2017-10-20] MEDS: FOLIC ACID 1 MG TAB PO SCH (06:27)
[2017-10-20] MEDS: GABAPENTIN 300 MG CAP PO SCH ×3 (06:27→20:03)
[2017-10-20] MEDS: APIXABAN 5 MG TAB (ELIQUIS) PO SCH ×2 (06:27→20:03)
[2017-10-20] MEDS: MORPHINE 30 MG SA TAB PO SCH ×2 (08:51→20:02)
[2017-10-20] MEDS: (RENVELA) SEVELAMER **CARBONate** 800 MG TAB PO SCH ×3 (08:51→18:00)
[2017-10-20] MEDS ORDERED: HEPARIN 1,000 UNITS/ML 10ML VIAL (FOR RADIOLOGY& DIALYSIS ONLY) IV ONE (11:15)
--- NOTE | 2017-10-20 16:56 | IPN ---
DATE: 10/20/2017 SUBJECTIVE: The patient is seen this morning on hemodialysis. She reports she feels well. States her dressings are now changed daily. Continues to work with physical therapy and was able to stand this morning. No other complaints. No chest pain, palpitations, or shortness of breath. Is comfortable on dialysis. VITAL SIGNS: Temperature 97.5, pulse 78, respiratory rate 14, blood pressure 133/70, saturating 99% on room air. Intake and output: Not fully recorded. Weight in the bed scale today is 85.8 kg. GENERAL: The patient is seen lying down comfortable on dialysis in no acute distress. Extraocular muscles are intact. The tongue is moist. Neck is supple. CARDIAC: S1, S2. Radial pulse 2+. There is no edema in the lower extremities. LUNGS: Clear to auscultation. She is comfortable on room air. ABDOMEN: Soft, nontender. There are scattered subdermal nodules that are appreciable diffusely. EXTREMITIES: The bilateral upper extremities have failed accesses. There is a Perm-A-Cath in the left subclavian currently in use. NEUROLOGIC: She is at her baseline mentation. No issues. Pleasantly interactive and conversational. PSYCHIATRIC: Appropriate mood and affect. EXTREMITIES: There is a right lower extremity wound with dressing. LABORATORY DATA: White count 5.8, hemoglobin 11.3, platelets 116. Sodium 134, potassium 4.6, bicarbonate 25. These labs were drawn on October 19. Lab work for tomorrow, October 21, is ordered. INPATIENT MEDICATIONS: The patient's pain medications are adjusted per the primary team, including MSIR and MS Contin. Other medications are unchanged from prior. PROBLEMS: 1. End-stage renal disease, on hemodialysis. The patient is currently off of her maintenance schedule of Wednesday, , Wednesday. Her next dialysis treatment will be on October 22. She is fairly euvolemic on examination and is tolerating ultrafiltration well. 2. Anemia of chronic kidney disease. The patient received packed red blood cells (PRBC) transfusion during this admission, and her hemoglobin has since been stable. We will start her on Aranesp when appropriate. 3. Secondary hyperparathyroidism of renal origin. Patient continues on Sensipar and Renvela. We will check a corrected calcium and phosphorus level in the morning. 4. Right leg ulcer and peripheral vascular disease status post endarterectomy and wound debridement. Pain management and local wound care as per Dr. Gunderson and Dr. Corley. The patient continues to receive physical therapy and may require rehabilitation.
[2017-10-20] MEDS: ACETAMINOPHEN 500 MG TAB PO PRN (18:06)
[2017-10-20] MEDS: DOCUSATE SODIUM 100 MG CAP PO SCH (20:02)
[2017-10-20] MEDS: traZODone 100 MG TAB PO SCH (20:02)
[2017-10-20] MEDS: **NOTE PATIENT COMMENT** MISC XX SCH (20:03)
[2017-10-20 22:00] VITALS: BP 147/79
[2017-10-21] MEDS: MORPHINE 30 MG TAB **MSIR PO PRN ×2 (02:43→12:17)
[2017-10-21] MEDS: ALPRAZolam 0.25 MG TAB PO SCH ×3 (05:40→21:34)
[2017-10-21 06:00] VITALS: BP 125/75
[2017-10-21 07:09] LABS: MEAN CORPUSCULAR HEMOGLOBIN 27.8 pg (27.0-33.0); MEAN CORPUSCULAR HGB CONC 31.4 g/dl (32.0-36.5); MEAN CORPUSCULAR VOLUME 88.6 fl (80.0-96.0); PLATELET COUNT, AUTOMATED 128 10^3/uL (150-450); RED CELL DISTRIBUTION WIDTH 14.6 % (11.5-14.5); WHITE BLOOD COUNT 5.9 10^3/uL (4.0-10.0)
[2017-10-21 07:33] LABS: ALBUMIN 2.5 GM/DL (3.2-5.2); ALBUMIN/GLOBULIN RATIO 0.41 (1.00-1.93); BILIRUBIN,TOTAL 0.6 MG/DL (0.2-1.0); CREATININE FOR GFR 5.01 MG/DL (0.55-1.02); GLOMERULAR FILTRATION RATE 9.8 (>58); PHOSPHORUS LEVEL 5.2 MG/DL (2.5-4.9); POTASSIUM SERUM 4.2 MEQ/L (3.5-5.1); TOTAL PROTEIN 8.6 GM/DL (6.4-8.2)
[2017-10-21] MEDS: CINACALCET 30 MG TAB (SENSIPAR) PO SCH (08:56)
[2017-10-21] MEDS: GABAPENTIN 300 MG CAP PO SCH ×3 (08:56→20:37)
[2017-10-21] MEDS: APIXABAN 5 MG TAB (ELIQUIS) PO SCH ×2 (08:56→20:37)
[2017-10-21] MEDS: (RENVELA) SEVELAMER **CARBONate** 800 MG TAB PO SCH ×3 (08:56→18:08)
[2017-10-21] MEDS: FOLIC ACID 1 MG TAB PO SCH (08:56)
[2017-10-21] MEDS: MORPHINE 30 MG SA TAB PO SCH ×2 (08:57→20:36)
--- NOTE | 2017-10-21 13:17 | IPN ---
DATE OF SERVICE: 10/21/2017 SUBJECTIVE: The patient is seen this morning at the bedside. She feels well. Denies any complaints at present. Reports that she is continuing to work with physical therapy and is agreeable for rehabilitation placement. She tolerated dialysis well yesterday without any issues. VITAL SIGNS: Temperature 98.1. Pulse 67. Respiratory rate 18. Blood pressure 125/75. Saturating 93% on room air. INTAKE AND OUTPUT: Oral intake is not recorded. Dialysis removed 3500 mL ultrafiltration yesterday. Weight on the bed scale today is 85.8 kg. GENERAL: The patient is seen in bed. She is cleansing her hair at the time of my visit. Comfortable, appropriate and interactive. Extraocular muscles are intact. Moist tongue. CARDIAC: S1, S2. 2+ radial pulse. No edema in the extremities. LUNGS: Clear to auscultation. Comfortable on room air. ABDOMEN: Soft. Nontender. There are scattered nodules in the subcutaneous tissue that are appreciable. EXTREMITIES: Bilateral upper extremities have failed accesses. There is a PermaCath in the left subclavian. NEUROLOGIC: She is at baseline mentation. No issues. MUSCULOSKELETAL: The right lower extremity has a dressing and there is some scaliness on the right ankle. PSYCHIATRIC: Appropriate mood and affect. LABORATORIES: White count 5.9, hemoglobin 11.5 and platelets 128. Sodium 133, potassium 4.2, bicarbonate 23, corrected calcium 11.2, phosphorus 5.2. INPATIENT MEDICATIONS: I have discontinued the patient's vitamin D 50,000 units by mouth weekly. Her other medications are unchanged from prior. PROBLEMS: 1. End stage renal disease on hemodialysis. The patient is currently off her maintenance schedule of Wednesday, , Wednesday. Next dialysis treatment will be 10/22/2017. She is fairly euvolemic on exam and is tolerating ultrafiltration without any issues. 2. Secondary hyperparathyroidism of renal origin. The patient's phosphorus is appropriate. Her corrected calcium is noted to be 11.2. I have discontinued her vitamin D supplement and have ordered a PTH. She continues on Sensipar and Renvela. 3. Anemia of chronic kidney disease. The patient received packed red blood cells during this admission. Her hemoglobin has since been slightly above for CKD. We will start Aranesp when appropriate. 4. Right leg ulcer and peripheral vascular disease, status post endarterectomy and wound debridement. Pain management and wound care continues as per Dr. Gunderson. The patient is rehabilitation placement pending. [facility]
[2017-10-21 14:00] VITALS: BP 153/94
[2017-10-21] MEDS: traZODone 100 MG TAB PO SCH (20:36)
[2017-10-21] MEDS: DOCUSATE SODIUM 100 MG CAP PO SCH (20:36)
[2017-10-21] MEDS: **NOTE PATIENT COMMENT** MISC XX SCH (20:37)
[2017-10-21 22:00] VITALS: BP 137/76
[2017-10-22] MEDS: APIXABAN 5 MG TAB (ELIQUIS) PO SCH ×2 (05:51→20:56)
[2017-10-22] MEDS: ALPRAZolam 0.25 MG TAB PO SCH ×3 (05:51→21:00)
[2017-10-22] MEDS: FOLIC ACID 1 MG TAB PO SCH (05:51)
[2017-10-22] MEDS: GABAPENTIN 300 MG CAP PO SCH ×3 (05:51→21:00)
[2017-10-22 06:00] VITALS: BP 126/68
[2017-10-22] MEDS: (RENVELA) SEVELAMER **CARBONate** 800 MG TAB PO SCH ×3 (07:39→18:13)
[2017-10-22] MEDS: MORPHINE 30 MG SA TAB PO SCH ×2 (07:41→20:56)
[2017-10-22] MEDS ORDERED: HEPARIN 1,000 UNITS/ML 10ML VIAL (FOR RADIOLOGY& DIALYSIS ONLY) IV ONE (12:00)
[2017-10-22 16:30] VITALS: BP 90/54
--- NOTE | 2017-10-22 17:40 | IPN ---
DATE: 10/22/2017 SUBJECTIVE: The patient is seen this morning on hemodialysis, comfortable. Reports no complaints. States that she is ambulating with physical therapy. OBJECTIVE: VITAL SIGNS: Temperature 96.8, pulse 75, respiratory rate 16, blood pressure 126/68, saturating 99% on room air. INTAKE AND OUTPUT: Oral intake yesterday 840 mL. Goal dialysis ultrafiltration today is 3500 mL. Weight in the bed scale today is 85.4 kg. GENERAL: The patient is seen on hemodialysis, comfortable in no acute distress. HEENT: Extraocular muscles are intact. Moist tongue. CARDIAC: S1, S2. 2+ radial pulse. There is no edema in the extremities or in the dependent area or hip. LUNGS: Clear to auscultation. She is comfortable on room air. ABDOMEN: Soft, nontender. There are scattered nodules in the subcutaneous tissues that are appreciable. EXTREMITIES: Have failed accesses in the arms bilaterally. There is a PermaCath in the left subclavian, currently in use. NEUROLOGIC: She is at baseline mentation. No issues. MUSCULOSKELETAL: The right lower extremity has a dressing, and there is some mild swelling at the right ankle. PSYCHIATRIC: Appropriately mood and affect. LABORATORY DATA: PTH 124. There are no other labs available today. INPATIENT MEDICATIONS: Unchanged from prior. PROBLEMS: 1. End-stage renal disease on hemodialysis: The patient is currently off of her maintenance schedule of Wednesday, , Wednesday. She is euvolemic on exam and is tolerating ultrafiltration without any issues. 2. Secondary hyperparathyroidism of renal origin: The patient's phosphorus is appropriate. Her correct calcium was elevated to 11.2. Her vitamin D is discontinue. Parathyroid hormone (PTH) is 124, which is appropriate, given her renal failure and elevated calcium. She continues on Sensipar and Renvela. 3. Anemia of chronic disease. The patient's Aranesp is currently on hold and will be resumed with appropriate. 4. Right leg ulcer and peripheral vascular disease status post endarterectomy and wound debridement. Pain management and wound care continue as per Dr. Gunderson. The patient has been cleared by physical therapy.
[2017-10-22] MEDS: MORPHINE 30 MG TAB **MSIR PO PRN (18:12)
[2017-10-22] MEDS: DOCUSATE SODIUM 100 MG CAP PO SCH (20:55)
[2017-10-22] MEDS: traZODone 100 MG TAB PO SCH (20:56)
[2017-10-22] MEDS: **NOTE PATIENT COMMENT** MISC XX SCH (21:00)
[2017-10-22 22:00] VITALS: BP 131/81
[2017-10-23] MEDS: MORPHINE 30 MG TAB **MSIR PO PRN (03:35)
[2017-10-23] MEDS: ALPRAZolam 0.25 MG TAB PO SCH ×3 (05:53→22:41)
[2017-10-23 06:00] VITALS: BP 111/56
[2017-10-23 07:21] LABS: ALBUMIN 2.5 GM/DL (3.2-5.2); ALBUMIN/GLOBULIN RATIO 0.44 (1.00-1.93); BILIRUBIN,TOTAL 0.6 MG/DL (0.2-1.0); CALCIUM LEVEL 9.9 MG/DL (8.5-10.1); CREATININE FOR GFR 4.89 MG/DL (0.55-1.02); POTASSIUM SERUM 4.2 MEQ/L (3.5-5.1); TOTAL PROTEIN 8.2 GM/DL (6.4-8.2)
[2017-10-23] MEDS: CINACALCET 30 MG TAB (SENSIPAR) PO SCH (08:51)
[2017-10-23] MEDS: FOLIC ACID 1 MG TAB PO SCH (08:51)
[2017-10-23] MEDS: (RENVELA) SEVELAMER **CARBONate** 800 MG TAB PO SCH ×3 (08:51→16:29)
[2017-10-23] MEDS: APIXABAN 5 MG TAB (ELIQUIS) PO SCH ×2 (08:52→20:02)
[2017-10-23] MEDS: MORPHINE 30 MG SA TAB PO SCH ×2 (08:52→20:03)
[2017-10-23] MEDS: GABAPENTIN 300 MG CAP PO SCH ×3 (09:50→20:02)
[2017-10-23] MEDS ORDERED: SODIUM THIOSULFATE 25 GM in NS 100 ML IV SCH (12:30)
[2017-10-23] MEDS: traZODone 100 MG TAB PO SCH (20:02)
[2017-10-23] MEDS: DOCUSATE SODIUM 100 MG CAP PO SCH (20:02)
[2017-10-23] MEDS: **NOTE PATIENT COMMENT** MISC XX SCH (20:03)
[2017-10-23 20:35] VITALS: BP 156/84
[2017-10-24] MEDS: MORPHINE 30 MG TAB **MSIR PO PRN ×2 (03:29→14:42)
[2017-10-24 06:00] VITALS: BP 128/60
[2017-10-24] MEDS: ALPRAZolam 0.25 MG TAB PO SCH ×3 (06:09→22:52)
[2017-10-24] MEDS: APIXABAN 5 MG TAB (ELIQUIS) PO SCH ×2 (08:48→20:20)
[2017-10-24] MEDS: (RENVELA) SEVELAMER **CARBONate** 800 MG TAB PO SCH ×3 (08:48→18:03)
[2017-10-24] MEDS: GABAPENTIN 300 MG CAP PO SCH ×3 (08:48→20:20)
[2017-10-24] MEDS: MORPHINE 30 MG SA TAB PO SCH ×2 (08:49→20:21)
[2017-10-24] MEDS: FOLIC ACID 1 MG TAB PO SCH (08:49)
[2017-10-24] MEDS: MIRALAX *UNIT DOSE* 17GM PACKET PO PRN (08:55)
--- NOTE | 2017-10-24 14:49 | IPN ---
DATE OF SERVICE: 10/23/2017 SUBJECTIVE: Patient was seen and examined at the bedside today morning. Patient reported that her right leg pain is optimized. She was dialyzed yesterday. She tolerated the hemodialysis procedure well. Her brother was also present at the bedside. REVIEW OF SYSTEMS: Patient denies any fevers, chills, rigors, headache, chest pain, shortness of breath, pain in abdomen, nausea, vomiting. She does report mild to moderate pain in the right leg which is optimized with current medication. OBJECTIVE: Vital signs: Temperature 97.9 degree Fahrenheit, blood pressure is 165/56, pulse 68, respiratory rate 18, saturating 98% on room air. Intake and output: Urine output is not recorded. Ultrafiltration with hemodialysis was 3 liter yesterday. Weight on the bed scale is 83.5 kg. PHYSICAL EXAMINATION: General: Patient is awake, alert, oriented times three, lying in bed, no apparent distress. Head and neck exam: Extraocular muscles intact. Pupils equally round and reactive to light. Mucous membranes are moist. Neck is supple. There is no jugular venous distention (JVD). Cardiovascular: S1, S2. Regular rate. No murmur, rub or gallop. Respiratory: Chest is clear to auscultation bilaterally. Bilateral equal air entry. No rales or rhonchi. Abdomen: Soft, positive bowel sounds, nontender, no ascites, no organomegaly. Musculoskeletal: Patient has an ulcer in the right leg and right heel, with dressings at this time. Central nervous system: No focal neurological defect. Power is 5/5 in all extremities. Psych: Normal mood and affect. LAB REVIEW: There is no recent CBC available. Latest hemoglobin was 11.5. BMP today morning showed sodium 133, potassium 4.2, chloride 97, bicarbonate 24, BUN 29, creatinine is 4.8. Calcium is 9.9. Albumin 2.5. Intact PTH yesterday was 124. CURRENT INPATIENT MEDICATIONS: Patient's medications are all reviewed by me. There is no change in the medications today as compared with yesterday except that I started the patient on sodium thiosulfate 25 gram IV with hemodialysis. 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 PLAN: 1. End-stage renal disease, on hemodialysis. The patient's regular dialysis days are Wednesday, Wednesday, Wednesday and she is being dialyzed according to her outpatient schedule. She was dialyzed yesterday. No urgent need of hemodialysis today. Patient needs to be dialyzed with 2k/2.5 calcium. 2. Anemia secondary to end-stage renal disease. Patient's hemoglobin is 11.5 which is appropriate. No need of Aranesp administration at this time. 3. Secondary hyperparathyroidism. Continue current dose of Sensipar 90 mg by mouth every Wednesday, , Wednesday. 4. Right leg ulcer and peripheral vascular disease. Patient is status post endarterectomy of the right femoral artery. Wound care is as per vascular surgery. Patient reports that her right leg wound biopsy was sent by Dr. 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 However, after the endarterectomy, her ulcers are healing. I will still continue to treat her with calciphylaxis, avoid IV iron, keep low calcium, keep phosphorus low. She has already been switched from Coumadin to Eliquis. I will avoid giving her calcitriol and I have restarting the sodium thiosulfate while the patient is admitted. She will get 25 gram IV with each hemodialysis session in last hour of dialysis. [facility]
[2017-10-24] MEDS: traZODone 100 MG TAB PO SCH (20:20)
[2017-10-24] MEDS: DOCUSATE SODIUM 100 MG CAP PO SCH (20:20)
[2017-10-24] MEDS: **NOTE PATIENT COMMENT** MISC XX SCH (20:21)
[2017-10-24 22:00] VITALS: BP 140/67
[2017-10-25 06:00] VITALS: BP_SYST 120; BP_SYST 130; BP_DIAS 65; BP_DIAS 69
[2017-10-25] MEDS: ALPRAZolam 0.25 MG TAB PO SCH ×3 (06:15→21:16)
[2017-10-25] MEDS: MORPHINE 30 MG TAB **MSIR PO PRN ×2 (06:20→17:18)
[2017-10-25 06:48] LABS: BASO # 0.1 10^3/uL (0.0-0.2); BASO % 0.6 % (0.0-1.0); EOS # 0.2 10^3/uL (0.0-0.50); IMMATURE GRANULOCYTE % 0.8 % (0-0); LYMPH # 1.5 10^3/uL (1.5-4.5); LYMPH % 19.4 % (24.0-44.0); MEAN CORPUSCULAR HEMOGLOBIN 27.9 pg (27.0-33.0); MEAN CORPUSCULAR HGB CONC 31.9 g/dl (32.0-36.5); MEAN CORPUSCULAR VOLUME 87.6 fl (80.0-96.0); MONO # 0.7 10^3/uL (0.0-0.8); MONO % 9.3 % (0.0-5.0); NEUTROPHILS # 5.3 10^3/uL (1.8-7.7); NEUTROPHILS % 67.9 % (36.0-66.0); PLATELET COUNT, AUTOMATED 115 10^3/uL (150-450); RED CELL DISTRIBUTION WIDTH 14.4 % (11.5-14.5); WHITE BLOOD COUNT 7.8 10^3/uL (4.0-10.0)
[2017-10-25 07:10] LABS: ALBUMIN 2.4 GM/DL (3.2-5.2); CREATININE FOR GFR 8.54 MG/DL (0.55-1.02); GLOMERULAR FILTRATION RATE 5.3 (>58); PHOSPHORUS LEVEL 6.6 MG/DL (2.5-4.9); POTASSIUM SERUM 5.1 MEQ/L (3.5-5.1)
[2017-10-25] MEDS ORDERED: SODIUM THIOSULFATE (25%) 12.5 GM/50 ML VIAL IV SCH (08:00)
[2017-10-25] MEDS: (RENVELA) SEVELAMER **CARBONate** 800 MG TAB PO SCH ×3 (09:15→17:19)
[2017-10-25] MEDS: GABAPENTIN 300 MG CAP PO SCH ×3 (09:15→21:16)
[2017-10-25] MEDS: FOLIC ACID 1 MG TAB PO SCH (09:16)
[2017-10-25] MEDS: APIXABAN 5 MG TAB (ELIQUIS) PO SCH ×2 (09:16→21:16)
[2017-10-25] MEDS: MORPHINE 30 MG SA TAB PO SCH ×2 (09:16→21:17)
--- NOTE | 2017-10-25 10:58 | IPN ---
DATE OF SERVICE: 10/24/2017 SUBJECTIVE: Patient was seen and examined at the bedside today morning. She is comfortable. She is pain free. Her wounds are healing. She is hemodynamically stable. She denies any active complaints. REVIEW OF SYSTEMS: Patient denies any fevers or chills, rigors, headache, chest pain, shortness of breath, pain in abdomen, constipation or diarrhea. She does report that right leg ulcers are improving. Her pain is optimized. Rest of review of system is negative. OBJECTIVE: VITAL SIGNS: Temperature is 98.1 degrees Fahrenheit. Blood pressure is 128/60. Pulse is 68. Respiratory rate of 18. Saturating 100% on room air. INTAKE AND OUTPUT: Urine output is not recorded. Weight on the bed scale is 82 kg. PHYSICAL EXAMINATION: GENERAL: Patient is awake, alert, oriented times three, laying in bed, no apparent distress. HEAD AND NECK EXAM: Extraocular muscles intact. Pupils equally round and reactive to light. Mucous membranes are moist. Neck is supple. There is no jugular venous distention (JVD). CARDIOVASCULAR: S1, S2. Regular rate. No murmur, rub or gallop. RESPIRATORY: Chest is clear to auscultation bilaterally. Bilateral equal air entry. No rales or rhonchi. ABDOMEN: Is soft. Positive bowel sounds. Nontender. No ascites. No organomegaly. MUSCULOSKELETAL: Patient has ulcer in the right leg, which is covered with a dressing, and patient has a small ulcer on the right heel as well, and the dressing is off at this time. CENTRAL NERVOUS SYSTEM (PHOTO STYLIST): No focal neurological defect. Power is 5/5 in all extremities. PSYCHIATRIC: Normal mood and affect. LABORATORY REVIEW: CBC showed a hemoglobin of 11.5, and it was 3 days ago. Latest . Latest BMP is not available. It will be done tomorrow before dialysis. CURRENT INPATIENT MEDICATIONS: Patient's medications are all reviewed by me. There is no change in the medications today as compared with yesterday. 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 PLAN: 1. End-stage renal disease, on hemodialysis. Patient's dialysis days as outpatient are Wednesday, , Wednesday. However, inpatient, she is being dialyzed according to Wednesday, Wednesday, Wednesday schedule. If there is a plan to discharge the patient tomorrow morning; then, I would not dialyze her tomorrow. 2. Anemia secondary to end-stage renal disease. Hemoglobin is appropriate. No need of Aranesp administration. 3. Right leg ulcer and peripheral vascular disease. Patient was diagnosed with calciphylaxis as outpatient by wound care center after biopsy. I will continue the sodium thiosulfate inpatient as well. She is status post right femoral endarterectomy as well, which helped healing her ulcers. Rest of the wound care is as per vascular surgery. 4. Secondary hyperparathyroidism. Continue current dose of Sensipar 90 mg Wednesday, , Wednesday.
[2017-10-25] MEDS ORDERED: HEPARIN 1,000 UNITS/ML 10ML VIAL (FOR RADIOLOGY& DIALYSIS ONLY) IV ONE (12:15)
[2017-10-25] MEDS ORDERED: HEPARIN 1,000 UNITS/ML 10ML VIAL (FOR RADIOLOGY& DIALYSIS ONLY) XX ONE (12:15)
--- NOTE | 2017-10-25 13:37 | IPN ---
DATE: 10/25/2017 SUBJECTIVE: Patient was seen and examined at the bedside today morning during the work rounds and again during hemodialysis procedure. The patient reports that she is feeling better. She still has a dressing on the right leg because of right leg ulcer. The patient is afebrile, hemodynamically stable. REVIEW OF SYSTEMS: Patient denies any fevers or chills, rigors, headache, chest pain, shortness of breath, pain in abdomen, constipation or diarrhea. She reports that the right heel ulcer is improving and she still has ulcer on the right and wound care is being done by the surgical team. Rest of review of systems is negative. OBJECTIVE: VITAL SIGNS: Temperature is 97.4 degrees Fahrenheit. Blood pressure is 130/65. Pulse is 68. Respiratory rate of 14. Saturating 95% on room air. INTAKE AND OUTPUT: Urine output is not recorded. Weight on the bed scale is 82.5 kg, which is close to her dry weight. PHYSICAL EXAMINATION: GENERAL: Patient is awake, alert, oriented times three, laying in bed, no apparent distress. HEAD AND NECK EXAM: Extraocular muscles intact. Pupils equally round and reactive to light. Mucous membranes are moist. Neck is supple. There is no jugular venous distention (JVD). CARDIOVASCULAR: S1, S2. Regular rate. No murmur, rub or gallop. RESPIRATORY: Chest is clear to auscultation bilaterally. Bilateral equal air entry. No rales or rhonchi. ABDOMEN: Is soft. Positive bowel sounds. Nontender. No ascites. No organomegaly. MUSCULOSKELETAL: Patient has ulcer in the right leg, which is covered with a dressing, and she has a right heel as well, which is covered with a dressing. CENTRAL NERVOUS SYSTEM (CARPENTER PROTOTYPE): No focal neurological defect. Power is 5/5 in all extremities. PSYCHIATRIC: Normal mood and affect. LABORATORY REVIEW: CBC showed a hemoglobin of 7.8, hemoglobin 10.8, platelets are 115. BMP showed sodium 131, potassium 5.1, chloride 97, bicarbonate 20, BUN 69, creatinine is 8.5, calcium is 9.0, phosphorous is 6.6, albumin is 2.4. CURRENT INPATIENT MEDICATIONS: Patient's medications are all reviewed by me. I have increased her Renvela dose to two tablets by mouth three times a day. 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 PLAN: 1. End-stage renal disease, on hemodialysis. Patient's outpatient dialysis days are Wednesday, , Wednesday. However, during this hospitalization, she is being dialyzed Wednesday, Wednesday, Wednesday. She is being dialyzed today and she is tolerating the hemodialysis procedure well. 2. Hyperphosphatemia. The patient is currently on Renvela 800 mg by mouth three times a day. I have increased her dose to 1.6 grams by mouth three times a day. Continue low phosphorous diet. 3. Anemia secondary to end stage renal disease. Hemoglobin is acceptable at 10.8. The patient is not on Aranesp at this time. Continue to monitor for now. 4. Right leg ulcer. The patient will go to the operating room today in the evening after hemodialysis procedure for debridement and cleaning of the right leg wound. DISPOSITION: The patient will likely get discharged in the next 24 to 48 hours and she can resume her outpatient dialysis schedule after discharge. The plan of care was discussed with the vascular surgeon, Dr. Gunderson, this morning.
[2017-10-25 17:15] VITALS: BP 134/80
[2017-10-25] MEDS: **NOTE PATIENT COMMENT** MISC XX SCH (21:00)
[2017-10-25] MEDS: traZODone 100 MG TAB PO SCH (21:16)
[2017-10-25] MEDS: DOCUSATE SODIUM 100 MG CAP PO SCH (21:16)
[2017-10-25 22:00] VITALS: BP 108/66
[2017-10-26] MEDS: MORPHINE 30 MG TAB **MSIR PO PRN ×4 (02:06→20:54)
[2017-10-26 06:00] VITALS: BP 113/67
[2017-10-26] MEDS: ALPRAZolam 0.25 MG TAB PO SCH ×3 (06:27→21:51)
[2017-10-26] MEDS: (RENVELA) SEVELAMER **CARBONate** 800 MG TAB PO SCH ×4 (08:00→17:14)
[2017-10-26] MEDS: FOLIC ACID 1 MG TAB PO SCH (08:17)
[2017-10-26] MEDS: CINACALCET 30 MG TAB (SENSIPAR) PO SCH (08:17)
[2017-10-26] MEDS: GABAPENTIN 300 MG CAP PO SCH ×3 (08:17→21:50)
[2017-10-26] MEDS: APIXABAN 5 MG TAB (ELIQUIS) PO SCH ×2 (08:18→21:50)
[2017-10-26] MEDS: MORPHINE 30 MG SA TAB PO SCH ×2 (08:18→21:51)
[2017-10-26 08:49] LABS: CREATININE FOR GFR 5.39 MG/DL (0.55-1.02); PHOSPHORUS LEVEL 5.2 MG/DL (2.5-4.9); POTASSIUM SERUM 4.6 MEQ/L (3.5-5.1)
--- NOTE | 2017-10-26 11:36 | IPNPDOC ---
Date Seen The patient was seen on 10/26/17. Progress Note SUBJECTIVE: Patient was seen and examined at the bedside this morning. She had hemodialysis yesterday with removal of 2500mL. Received Sodium Thiosulfate yesterday during dialysis. Has not received Renvela as she is NPO for wound debridement with vascular surgery today. Offers no complaints at this time. REVIEW OF SYSTEMS: Patient denies any fevers or chills, rigors, headache, chest pain, shortness of breath, pain in abdomen, constipation or diarrhea. She reports that the right heel ulcer is improving and she still has ulcer on the right. Rest of review of systems is negative. PHYSICAL EXAMINATION: GENERAL: Patient is awake, alert, oriented times three, laying in bed, no apparent distress. HEAD AND NECK EXAM: Extraocular muscles intact. Pupils equally round and reactive to light. Mucous membranes are moist. Neck is supple. There is no jugular venous distention (JVD). CARDIOVASCULAR: S1, S2. Regular rate. No murmur, rub or gallop. RESPIRATORY: Chest is clear to auscultation bilaterally. Bilateral equal air entry. No rales or rhonchi. ABDOMEN: Is soft. Positive bowel sounds. Nontender. No ascites. No organomegaly. MUSCULOSKELETAL: Patient has ulcer in the right leg, which is covered with a dressing, and she has a right heel as well, which is covered with a dressing. CENTRAL NERVOUS SYSTEM (SET MAKING MACHINE OPERATOR): No focal neurological defect. Power is 5/5 in all extremities. PSYCHIATRIC: Normal mood and affect. LABORATORY REVIEW: See below. CURRENT INPATIENT MEDICATIONS: Patient's medications are all reviewed by myself and my attending. Renvela and Sensipar have been held as patient is NPO for debridement procedure. 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 PLAN: 1. End-stage renal disease, on hemodialysis: Outpatient dialysis days are TThS. However, while hospitalized patient is being dialyzed MWF. Received dialysis yesterday. Tolerated well. 2. Hyperphosphatemia: Continue with Renvela 1,600mg with meals, three times a day. However, dose held as patient is currently NPO for debridement procedure with vascular surgery. Continue low phosphorous diet. 3. Anemia secondary to end stage renal disease: H/H 10.8/33.9 yesterday. Not on Aranesp. Monitor labs. 4. Right leg ulcer: Debridement of ulcer with vascular surgery. Potential for discharge after procedure. DISPOSITION: The patient will likely get discharged in the next 24 to 48 hours. She can resume her outpatient dialysis schedule TThS. VS, I&O, 24H, Fishbone Vital Signs/I&O Vital Signs Date Time Temp Pulse Resp B/P (MAP) Pulse Ox O2 Delivery O2 Flow Rate FiO2 10/26/17 08:18 16 10/26/17 08:00 Room Air 10/26/17 06:00 97.8 75 113/67 (82) 99 10/23/17 08:44 99 Laboratory Data 24H LABS Laboratory Tests 2 10/26/17 08:20: Anion Gap 12, Glomerular Filtration Rate 9.0L, Blood Urea Nitrogen 32#H, Creatinine 5.39H, Sodium Level 136, Potassium Level 4.6, Chloride Level 99, Carbon Dioxide Level 25, Calcium Level 10.0, Phosphorus Level 5.2#H CBC/BMP Laboratory Tests 10/26/17 08:20 Calcium Level 10.0 Microbiology Microbiology 10/22/17 MRSA Screen - Final, Complete ERNESTO MCKEON DO Oct 26, 2017 11:35
[2017-10-26] MEDS ORDERED: MIDAZOLAM INJ 2 MG/2 ML VIAL (J2250) As Ordered ONE (14:09)
[2017-10-26] MEDS ORDERED: fentaNYL 100 MCG/2 ML INJECTION (J3010) As Ordered ONE ×4 (14:27→15:18)
[2017-10-26] MEDS ORDERED: PROPOFOL 200 MG/20 ML VIAL As Ordered ONE (14:44)
[2017-10-26] MEDS: fentaNYL 100 MCG/2 ML INJECTION (J3010) IV PRN ×8 (15:01→15:36)
[2017-10-26] MEDS ORDERED: PERCOCET 5MG/325MG TAB PO PRN (15:15)
[2017-10-26] MEDS ORDERED: MEPERIDINE INJ 25 MG/ML VIAL (J2175) IV PRN (15:15)
[2017-10-26] MEDS ORDERED: LR 1,000 ML IV SCH (15:15)
[2017-10-26] MEDS ORDERED: METOCLOPRAMIDE INJ 10MG/2ML VIAL (J2765) IV PRN (15:15)
[2017-10-26] MEDS ORDERED: ONDANSETRON 4MG/2ML VIAL (J2405) IV PRN (15:15)
[2017-10-26] MEDS ORDERED: PERCOCET 5MG/325MG TAB As Ordered ONE (15:18)
[2017-10-26 16:30] VITALS: BP 158/95
[2017-10-26] MEDS: **NOTE PATIENT COMMENT** MISC XX SCH (21:00)
[2017-10-26] MEDS: traZODone 100 MG TAB PO SCH (21:50)
[2017-10-26] MEDS: DOCUSATE SODIUM 100 MG CAP PO SCH (21:50)
[2017-10-26 22:00] VITALS: BP 144/87
[2017-10-27] MEDS: ALPRAZolam 0.25 MG TAB PO SCH ×2 (05:56→13:17)
[2017-10-27 06:00] VITALS: BP 135/70
[2017-10-27] MEDS: MORPHINE 30 MG SA TAB PO SCH (09:19)
[2017-10-27] MEDS: FOLIC ACID 1 MG TAB PO SCH (09:19)
[2017-10-27] MEDS: MORPHINE 30 MG TAB **MSIR PO PRN ×3 (09:19→17:38)
[2017-10-27] MEDS: APIXABAN 5 MG TAB (ELIQUIS) PO SCH (09:19)
[2017-10-27] MEDS: (RENVELA) SEVELAMER **CARBONate** 800 MG TAB PO SCH ×3 (09:19→17:37)
[2017-10-27] MEDS: GABAPENTIN 300 MG CAP PO SCH ×2 (09:19→15:40)
[2017-10-27] MEDS ORDERED: MSIR30TA PO (13:12)
[2017-10-27] MEDS ORDERED: MORP30TASA PO (13:12)
[2017-10-27 14:00] VITALS: BP 155/91
[2017-10-27] MEDS ORDERED: MORPHINE 30 MG TAB **MSIR PO ONE (15:30)
--- NOTE | 2017-10-28 02:59 | IPN ---
DATE OF SERVICE: 10/27/2017 SUBJECTIVE: Patient was seen and examined at the bedside today morning. The patient reported that her pain is optimized. She got debridement of the right leg ulcer done yesterday and patient is reporting that she is ready to go home today. REVIEW OF SYSTEMS: Patient denies any fevers, chills, rigors, headache, chest pain, shortness of breath, pain abdomen, constipation. She reports that the right leg pain is optimized. Rest of review of systems is negative. OBJECTIVE: VITAL SIGNS: Temperature is 97.1 degrees Fahrenheit. Blood pressure is 155/91. Pulse is 83. Respiratory rate of 18, saturating 98% on room air. INTAKE AND OUTPUT: Urine output is not recorded. Weight on the bed scale was 82.5 kg. Today's weight is not available. PHYSICAL EXAMINATION: GENERAL: Patient is awake, alert, oriented times three, lying in bed, no apparent distress. HEAD AND NECK EXAM: Extraocular muscles intact. Pupils equally round and reactive to light. Neck is supple. There is no jugular venous distention (JVD). CARDIOVASCULAR: S1, S2. Regular rate. No murmur, rub or gallop. RESPIRATORY: Chest is clear to auscultation bilaterally. Bilateral equal air entry. No rales or rhonchi. ABDOMEN: Soft. Positive bowel sounds. Nontender. No ascites. No organomegaly. MUSCULOSKELETAL: Patient has ulcer in the right leg, which is covered with a dressing, and right heel ulcer is also covered with a dressing at this time. CENTRAL NERVOUS SYSTEM (PAINT LINE PRODUCTION SUPERVISOR): No focal neurological defect. Power is 5/5 in all extremities. PSYCHIATRIC: Normal mood and affect. LABORATORY REVIEW: CBC showed a WBC of 7.8, hemoglobin 10.8, and the CBC is from 2 days ago. Today's morning BMP is not available. CURRENT INPATIENT MEDICATIONS: Patient's medications were all reviewed by me. There is no change in the medications today as compared with yesterday. 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 PLAN: 1. End-stage renal disease. Patient's regular dialysis days are Wednesday, , Wednesday. She was being dialyzed according to Wednesday, Wednesday, Wednesday schedule over here. Today is patient's regular inpatient day of dialysis; however, patient wants to go home and she agrees to get dialyzed tomorrow morning as per her outpatient schedule. No urgent need of hemodialysis today. 2. Anemia secondary to end-stage renal disease. Hemoglobin is optimized at this time. Patient was not getting Aranesp in the hospital. Rest of the anemia management and optimization is as per outpatient. 3. Hyperphosphatemia. Patient's Renvela dose was increased to 1600 mg by mouth three times a day with meals. Continue current dose. 4. Right leg ulcer. Patient got right femoral endarterectomy done and she got debridement of the ulcer done again by vascular surgery yesterday. Rest of the wound care is as per outpatient. DISPOSITION: It is okay to discharge the patient from nephrology standpoint. She will be dialyzed tomorrow morning as outpatient. Plan of care was discussed with the nursing staff.
--- NOTE | 2017-11-05 20:55 | DSES ---
DATE OF ADMISSION: 10/08/2017 DATE OF DISCHARGE: 10/27/2017 PROCEDURES PERFORMED DURING ADMISSION: 1. Right lower extremity angiogram. 2. Right external iliac common femoral, superficial femoral, and profunda femoris artery endarterectomy with patch angioplasty. 3. Debridement of right calf and heel ulcer times two. HOSPITAL COURSE: The patient was admitted and underwent an angiogram showing severe atherosclerotic arterial occlusive disease in the external iliac, common femoral, superficial femoral, and profunda femoris artery. The patient subsequently underwent an endarterectomy due to her nonhealing right calf and heel ulcers. The patient had significant improvement in her right lower extremity with regards to her perfusion, and was also less symptomatic. Her wound started showing good signs of healing. The wounds underwent debridement twice, and the patient was subsequently discharged to home on 10/27/2017 with instructions to followup in the office in one week. The patient will also followup with Dr. Corley for continued wound care of her right calf and heel.
--- NOTE | 2017-11-05 21:26 | RO ---
DATE OF PROCEDURE: 10/10/2017 PREPROCEDURE DIAGNOSES: Nonhealing right calf ulcer. Calciphylaxis right calf. End-stage renal disease. Aortoiliac atherosclerotic arterial occlusive disease. Femoral popliteal atherosclerotic arterial occlusive disease. Tibioperoneal atherosclerotic arterial occlusive disease. POSTPROCEDURE DIAGNOSES: Nonhealing right calf ulcer. Calciphylaxis right calf. End-stage renal disease. Aortoiliac atherosclerotic arterial occlusive disease. Femoral popliteal atherosclerotic arterial occlusive disease. Tibioperoneal atherosclerotic arterial occlusive disease. OPERATIVE PROCEDURE: Right external iliac artery endarterectomy, right common femoral artery endarterectomy, right profunda femoris artery and endarterectomy, right superficial femoral artery endarterectomy, closure of the endarterectomy site with a XenoSure biologic patch. SURGEON: María Gunderson MD ANIMAL CARETAKER: INDICATION: The patient is a 55-year-old male with right lower extremity wound which has been nonhealing for multiple years who now will undergo a debridement with possible skin grafting. The risks, benefits and alternative treatment options were discussed with the patient. ANESTHESIA: General endotracheal. ESTIMATED BLOOD LOSS: 600 mL IV FLUIDS: 600 mL HEPARIN: 5000 units followed by a 3000 unit bolus. PROTAMINE: 50 mg DRAINS: #10 NITIN SPECIMENS: Right external iliac artery, common femoral artery, profunda femoris and superficial femoral arterial plaque and contents. COMPLICATIONS: None. INDICATION: The patient is a 47-year-old female with end-stage renal disease and calciphylaxis in the right calf and an ulcer which has been nonhealing. The patient underwent an angiogram which showed near occlusive lesion of the external iliac artery, common femoral artery extending into the bifurcation of the profunda femoris and superficial femoral artery. The patient also had distal superficial femoral arterial atherosclerotic disease and tibioperoneal arterial atherosclerotic disease. The atherosclerotic disease in the external iliac and common femoral superficial femoral and profunda femoris arteries was not amenable to endovascular repair and the patient will now undergo an open surgical repair with endarterectomy with patchy angioplasty. The risks, benefits and alternative treatment options were discussed with the patient. Alternative treatment options included, but were not limited to no intervention. Benefits included but were not limited to sabianism of blood flow with resolution of the right lower extremity symptoms and healing of her right lower extremity calf ulcer. The risks included, but were not limited to infection, bleeding, possible need for further open surgical intervention, cerebrovascular accident, myocardial infarction, pulmonary embolus, deep venous thrombosis (DVT), loss of limb, loss of life and poor outcome. The patient's questions were answered. The patient voices understanding of these risks, benefits and alternative treatment options and agrees to proceed. DESCRIPTION OF PROCEDURE: The patient was taken to the operating room, placed supine on the operating room table, and then prepped and draped in a standard surgical fashion. An incision was made obliquely in the inguinal region overlying the common femoral artery and the common femoral artery, external iliac artery, superficial femoral and profunda femoris arteries were all sharply dissected free and then circled with Vesseloops. The patient was given 5000 units of heparin, after which the vessels were clamped and arteriotomy was made in the common femoral artery and extended down into the superficial femoral artery. The plaque was also noted to extend into the external iliac artery and an endarterectomy was performed with removal of plaque from the right external iliac artery, common femoral artery and superficial femoral artery and eversion endarterectomy of the right profunda femoris artery was also performed with removal of plaque. The plaque in the superficial femoral artery extended down into the superficial femoral artery and a separate incision was then made in the thigh overlying the superficial femoral artery which was exposed allowing for elongation of the arteriotomy and completion of the endarterectomy of the plaque in the superficial femoral artery. Once the endarterectomy was completed the arteriotomy was closed using a XenoSure biologic patch and #6-0 Prolene suture in running continuous fashion. Flow was reestablished from the external iliac artery into the common femoral, superficial femoral and profunda femoris arteries with good flow noted in the profunda femoris and superficial femoral arteries with Doppler ultrasound evaluation. Hemostasis was then obtained after which the two incisions were closed with #2-0 Vicryl in approximated deeper layers and lizeth to approximate the skin. A #10 NITIN was placed in the wound prior to closing the incision and brought out through a separate puncture wound in the right thigh. Dressings were applied. The patient tolerated the procedure well. All instrument, sponge and needle counts were correct at the end of the case. There were no complications. Dr. Gunderson was present for and directed the entire case. The patient was transferred to the recovery room and subsequently to the floor in stable condition. The patient had significantly improved perfusion of her right lower extremity.
--- NOTE | 2017-11-05 21:33 | RO ---
DATE OF PROCEDURE: 10/13/2017 PREOPERATIVE DIAGNOSIS: Right lower extremity calciphylaxis, nonhealing right calf wound, end-stage renal disease, aortoiliac arterial atherosclerotic occlusive disease, femoral popliteal arterial atherosclerotic occlusive disease, tibial peroneal arterial atherosclerotic occlusive disease. Status post right external iliac, common femoral, profunda femoris and superficial femoral endarterectomy with patch angioplasty. POSTOPERATIVE DIAGNOSIS: PROCEDURE: Excisional debridement of right calf wound with removal of skin, subcutaneous tissue, adipose tissue and muscle. The right calf wound measures approximately 7 cm x 5 cm with a depth of approximately 1/2 cm. Debridement of right heel wound with excisional debridement with removal of skin and subcutaneous tissue. SURGEON: Dr. María Gunderson BAND TACKER: None. ANESTHESIA: MAC. ESTIMATED BLOOD LOSS: 10 mL. IV FLUID: 50 mL. HEPARIN: None. COMPLICATIONS: None. DRAINS: None. SPECIMENS: None. IMPLANTS: None. INDICATION: The patient is a 47-year-old female with nonhealing right heel wound and calf wound secondary to calciphylaxis, who underwent revascularization of her right lower extremity and will now undergo debridement of the nonviable tissue and nonhealing wounds. Risks, benefits and alternative treatment options were discussed with the patient. Alternative treatment options included but were not limited to no intervention. Risks included but were not limited to infection, bleeding, possible need for further open surgical intervention, cerebrovascular accident, myocardial infarction, pulmonary embolus, deep vein thrombosis (DVT), loss of limb, loss of life and poor outcome. Benefits included but were not limited to improved healing of the nonhealing wounds in the right lower extremity. The patient's questions were answered. The patient voices understanding of these risks, benefits and alternative treatment options and agrees to proceed. DESCRIPTION OF PROCEDURE: The patient was taken to the operating room, placed supine on the operating room table, and then the right lower extremity was prepped and draped in a standard surgical fashion. Pickups and a scalpel were used to debride nonviable tissue from the calf wound with removal of skin, subcutaneous tissue, adipose tissue and muscle down to healthy bleeding tissue. The right heel wound was then sharply debrided with excisional debridement using a pair of pickups and a scalpel with removal of nonviable skin and subcutaneous tissue down to healthy bleeding tissue. Dressings were then applied. The patient tolerated the procedure well. All instrument, sponge and needle counts were correct at the end of the case. There were no complications. Dr. Gunderson was present for and directed the entire case. The patient was transferred to the recovery room and subsequently to the floor in stable condition.
--- NOTE | 2017-11-05 21:44 | RO ---
DATE OF PROCEDURE: 10/26/2017 PREPROCEDURE DIAGNOSES: End-stage renal disease. Right lower extremity calciphylaxis. Nonhealing right calf and heel ulcer. Right aortoiliac arterial atherosclerotic occlusive disease. Right femoral popliteal arterial atherosclerotic occlusive disease. Right tibioperoneal arterial atherosclerotic occlusive disease. POSTPROCEDURE DIAGNOSES: End-stage renal disease. Right lower extremity calciphylaxis. Nonhealing right calf and heel ulcer. Right aortoiliac arterial atherosclerotic occlusive disease. Right femoral popliteal arterial atherosclerotic occlusive disease. Right tibioperoneal arterial atherosclerotic occlusive disease. OPERATIVE PROCEDURE: Excisional debridement of the right calf wound with removal of skin, subcutaneous tissue, adipose tissue and muscle. Excisional debridement of the right heel ulcer with excisional debridement of skin and subcutaneous tissue. SURGEON: María Gunderson MD WATER WELL DRILLER: None. INDICATION: The patient is a 55-year-old male with right lower extremity wound which has been nonhealing for multiple years who now will undergo a debridement with possible skin grafting. The risks, benefits and alternative treatment options were discussed with the patient. ANESTHESIA: Local Monitored anesthesia care (MAC). ESTIMATED BLOOD LOSS: Minimal. IV FLUIDS: 100 mL HEPARIN: None COMPLICATIONS: None. DRAINS: None. SPECIMENS: None. IMPLANTS: None. INDICATION: The patient is a 47-year-old female with arterial atherosclerotic disease of the right lower extremity which has been revascularized with an endarterectomy of the external iliac common femoral, superficial femoral and profunda femoris arteries who has nonhealing wounds on the right calf and heel. The patient has previously undergone debridement and now has developed some fibrinous exudate as well as necrotic edges of the wound which will undergo debridement. The risks, benefits and alternative treatment options were discussed with the patient. Alternative treatment options included, but were not limited to no intervention. Benefits included but were not limited to removal of nonviable tissue with improved healing of the wounds. The risks included, but were not limited to infection, bleeding, possible need for further open surgical intervention, cerebrovascular accident, myocardial infarction, pulmonary embolus, deep venous thrombosis (DVT), loss of limb, loss of life and poor outcome. The patient's questions were answered. The patient voices understanding of these risks, benefits and alternative treatment options and agrees to proceed. DESCRIPTION OF PROCEDURE: The patient was taken to the operating room, placed supine on the operating room table, and the right lower extremity was prepped and draped in a standard surgical fashion. Forceps and a scalpel were then used to excise the nonviable skin edges and subcutaneous tissue, adipose tissue and muscle down to healthy bleeding tissue. The wound in the right calf measures approximately 7 cm x 5 cm with a depth of a half a centimeter. There was good granulation tissue in the remainder of the wound except for the skin edges which were debrided as well as the underlying subcutaneous tissue muscle and adipose tissue. The heel ulcers showed good healing with a small amount of fibrinous exudate and the right heel underwent excisional debridement with scalpel and pickups with removal of the fibrinous exudate, the necrotic skin edges and subcutaneous tissue. Dressings were applied. The patient tolerated the procedure well. All instrument, sponge and needle counts were correct at the end of the case. There were no complications. Dr. Gunderson was present for and directed the entire case. The patient was transferred to the recovery room and subsequently to the floor in stable condition.
== END 2017-10-27 18:40 | disposition home health service (06) | DRG 270 ==
LOC: M MS5PR 12:21
PROVIDERS: ADMIT Surgery Vascular Surgery; ATTEND Surgery Vascular Surgery
PROC: B41DYZZ Fluoroscopy of Aorta and Bilateral Lower Extremity Arteries using Other Contrast (ICD-10-PCS; 2017-10-05)
PROC: 30253N1 (ICD-10-PCS; 2017-10-09)
PROC: 5A1D70Z Performance of Urinary Filtration, Intermittent, Less than 6 Hours Per Day (ICD-10-PCS; 2017-10-09)
PROC: 04CK0ZZ Extirpation of Matter from Right Femoral Artery, Open Approach (ICD-10-PCS; 2017-10-10)
PROC: 04CH0ZZ Extirpation of Matter from Right External Iliac Artery, Open Approach (ICD-10-PCS; principal; 2017-10-10 08:00)
PROC: 0JBQ0ZZ Excision of Right Foot Subcutaneous Tissue and Fascia, Open Approach (ICD-10-PCS; 2017-10-13)
PROC: 0KBS0ZZ Excision of Right Lower Leg Muscle, Open Approach (ICD-10-PCS; 2017-10-13)
PROC: 0JBQ0ZZ Excision of Right Foot Subcutaneous Tissue and Fascia, Open Approach (ICD-10-PCS; 2017-10-26)
PROC: 0KBS0ZZ Excision of Right Lower Leg Muscle, Open Approach (ICD-10-PCS; 2017-10-26)
DX: I70.232 Atherosclerosis of native arteries of right leg with ulceration of calf (principal); N18.6 End stage renal disease; D68.59 Other primary thrombophilia; N25.81 Secondary hyperparathyroidism of renal origin; I12.0 Hypertensive chronic kidney disease with stage 5 chronic kidney disease or end stage renal disease; D62 Acute posthemorrhagic anemia; L97.213 Non-pressure chronic ulcer of right calf with necrosis of muscle; I70.0 Atherosclerosis of aorta; M61.461 Other calcification of muscle, right lower leg; F41.9 Anxiety disorder, unspecified; E83.39 Other disorders of phosphorus metabolism; F32.9 Major depressive disorder, single episode, unspecified; L97.519 Non-pressure chronic ulcer of other part of right foot with unspecified severity; D63.1 Anemia in chronic kidney disease; E78.5 Hyperlipidemia, unspecified; E66.9 Obesity, unspecified; Z79.899 Other long term (current) drug therapy; Z79.01 Long term (current) use of anticoagulants; Z87.891 Personal history of nicotine dependence; Z99.2 Dependence on renal dialysis; Z88.5 Allergy status to narcotic agent; Z99.3 Dependence on wheelchair

== ENCOUNTER → 2017-11-26 | Outpatient (CLI) | payer MEDICARE, BC ==
[~2017-11-26] MED LIST changes: -ACET50TAOT PO; -AURY1TAB PO; -COLA100C5 PO; -COUM2TAB22 PO; -DRIS50002 PO; -ELIQ5TAB PO; -FOLI1TAB4 PO; -FOSR1000 PO; -GABA-279 PO; -GABA-282 PO; +HEPARIN 1,000 UNITS/ML 10ML VIAL (FOR RADIOLOGY& DIALYSIS ONLY) As Ordered; +ISOVUE-300 61% 50ML VIAL (Q9967) As Ordered; -LIDO5DIS41 TD; -LIDOCAINE 5% (LIDODERM) PATCH TD PRN; +MIDAZOLAM INJ 2 MG/2 ML VIAL (J2250) As Ordered; -MIDO5TA PO; -MIRA3350 PO; -MUPI2OI EXT; -OXYC30TA84 PO; +PROTAMINE SULF INJ 50 MG/5 ML VIAL (J2720) As Ordered; -SENS90TA PO; -SODI15SS PO; -TRAZ-136 PO; -VANC1INJ IV; -VANC1VLAD INJ; -VELP5CHW PO; -XANA0.25 PO; +fentaNYL 100 MCG/2 ML INJECTION (J3010) As Ordered
== END | disposition home or self-care (01) ==
LOC: M IRPRO 08:00
DX: I70.211 Atherosclerosis of native arteries of extremities with intermittent claudication, right leg (principal); I70.239 Atherosclerosis of native arteries of right leg with ulceration of unspecified site; L97.919 Non-pressure chronic ulcer of unspecified part of right lower leg with unspecified severity; N18.6 End stage renal disease; M24.562 Contracture, left knee; M24.561 Contracture, right knee; E83.59 Other disorders of calcium metabolism; E11.9 Type 2 diabetes mellitus without complications
CPT/HCPCS: 37224

== ENCOUNTER → 2018-04-18 | Outpatient (CLI) | payer MEDICARE, BC ==
[~2018-04-18] MED LIST changes: -ISOVUE-300 61% 50ML VIAL (Q9967) As Ordered; -MIDAZOLAM INJ 2 MG/2 ML VIAL (J2250) As Ordered; -PROTAMINE SULF INJ 50 MG/5 ML VIAL (J2720) As Ordered; -fentaNYL 100 MCG/2 ML INJECTION (J3010) As Ordered
== END | disposition home or self-care (01) ==
LOC: M IRPRO 13:47
DX: T82.41XA Breakdown (mechanical) of vascular dialysis catheter, initial encounter (principal); N18.6 End stage renal disease; Z99.2 Dependence on renal dialysis
CPT/HCPCS: 36576

== ENCOUNTER → 2018-06-20 | Outpatient (CLI) | payer MEDICARE, BC ==
[~2018-06-20] MED LIST changes: -HEPARIN 1,000 UNITS/ML 10ML VIAL (FOR RADIOLOGY& DIALYSIS ONLY) As Ordered; +ISOVUE-300 61% 50ML VIAL (Q9967) As Ordered
== END | disposition home or self-care (01) ==
LOC: M IRPRO 06:23
DX: I87.1 Compression of vein (principal); N18.6 End stage renal disease; Z99.2 Dependence on renal dialysis
CPT/HCPCS: 36005

== ENCOUNTER 2018-08-18 13:53 | Outpatient (CLI) | payer MEDICARE, BC ==
[2018-08-18] MEDS ORDERED: LIDOCAINE 2% MDV 20 ML VIAL As Ordered (15:13)
[2018-08-18] MEDS ORDERED: ISOVUE-300 61% 50ML VIAL (Q9967) As Ordered (15:13)
[2018-08-18] MEDS ORDERED: MIDAZOLAM INJ 2 MG/2 ML VIAL (J2250) As Ordered ×2 (15:15→15:52)
[2018-08-18] MEDS ORDERED: fentaNYL 100 MCG/2 ML INJECTION (J3010) As Ordered ×2 (15:15→15:52)
[2018-08-18] MEDS ORDERED: ALTEPLASE 2 MG/2 ML VIAL (J2997 PER 1MG) As Ordered ×2 (16:21)
== END 2018-08-18 20:40 | disposition home or self-care (01) ==
LOC: M OPCLI5PR 13:53 → M MS5PR 14:36 → M IRPRO 13:53 → M MS5PR 20:40
DX: I70.235 Atherosclerosis of native arteries of right leg with ulceration of other part of foot (principal); L97.519 Non-pressure chronic ulcer of other part of right foot with unspecified severity; I70.221 Atherosclerosis of native arteries of extremities with rest pain, right leg; I70.202 Unspecified atherosclerosis of native arteries of extremities, left leg; I70.92 Chronic total occlusion of artery of the extremities; N18.6 End stage renal disease
CPT/HCPCS: 37224

== ENCOUNTER 2019-04-11 14:19 | Inpatient (IN) | payer MEDICARE, BC ==
[~2019-04-11] VITALS: Ht 177.8 cm; Wt 90.7 kg
[~2019-04-11 14:19] MED LIST changes: +ACET500T15 PO; +AURY1TAB PO; +COLA100C5 PO; +COUM2TAB22 PO; +DRIS50003 PO; +ELIQ5TAB PO; +FOLI1TAB11 PO; +FOSR1000 PO; +GABA-1171 PO; +GABA-843 PO; -ISOVUE-300 61% 50ML VIAL (Q9967) As Ordered; +LIDO5DIS41 TD; +MIDO5TA PO; +MIRA3350 PO; +MORP30TASA PO; +MSIR30TA PO; +MUPI2OI EXT; +OXYC-405 PO; +OXYC20TA2 PO; +OXYC30TA84 PO; +SENS90TA PO; +SODI15SS PO; +TRAZ-163 PO; +VANC1INJ IV; +VANC1VLAD INJ; +VELP5CHW PO; +XANA0.25 PO
--- NOTE | 2019-04-11 15:15 | HPEPDOC ---
[facility] Medical History & Physical Date of Admission April 11, 2019 Date of Service: April 11, 2019 History and Physical Vascular surgery Dr. Gunderson Nephrology Dr Serrano CC: Right foot pain HPI: 48 yo F with a past medical history significant for PAD, history of right lower extremity angioplasty common femoral artery, superficial femoral artery, popliteal artery 09/01. The patient returns today and states she began to have right lower extremity pain 2 weeks ago. The pain has been steadily worsening. She states she has pain at rest. The foot has become discolored. She has had a wound on the posterior aspect of her heel and her right fifth toe. She was evaluated in the office today and found to have ischemia of the right lower extremity therefore her admission was arranged. The patient denies any discomfort in the left lower extremity. Denies any fevers, chills, weakness, fatigue, WINN, CP, SOB, cough, palpitations, abdominal pain, N/V/D or changes in bowel or bladder habits. PMHx: ESRD, hemodialysis as per nephrology. Patient states she was dialyzed today, states she is on a /Wed schedule. PAD Hypertension Obesity Unsteady gait, uses wheelchair or walker. PSHX: Multiple AV fistula/AV graft with subsequent thrombosis Tonsillectomy SOCHX: Tobacco use: Denies ETOH: Denies Illicit Drugs: Denies FAMHX: Father secondary to [place], mother secondary to diabetes, hypertension. ROS: As noted in HPI, otherwise 11pt ROS of systems reviewed and unremarkable. PE: GEN: 48 yo F, appears stated age. No acute distress. Alert and oriented x 3. HEENT: Normocephalic, atraumatic. Nose midline. Moist mucous membranes. CHEST: Regular rate and rhythm, +S1, +S2 LUNGS: Clear to auscultation bilaterally. No wheezes, rales, or rhonchi. Breathing appears symmetric and easy. ABD: Round, soft, non-tender, non-distended. +Bowel sounds throughout. No rebound or guarding. EXT: The right foot /toes with rubor noted, there is discoloration of the toes as well on the left, a small wound is noted on the right fifth toe. There is a small wound on the right heel, there is no drainage. There is a small blister on the second toe. The toes are cool to touch. Tenderness with palpation. Pulses obtainable with Doppler on the right faint DP, monophasic PT. On the left pulses are also obtained with Doppler monophasic. There is a healed wound noted on the right posterior pretibial area. Patient states this area has been unchanged. NEURO: Alert and oriented x 3. No focal deficits appreciated. Patient is currently using a wheelchair. Admission labs pending. A&P: 48 yo F with a past medical history significant for PAD, history of right lower extremity angioplasty common femoral artery, superficial femoral artery, popliteal artery 09/01. The patient returns today and states she began to have right lower extremity pain 2 weeks ago. The pain has been steadily worsening. She states she has pain at rest. The foot has become discolored. She has had a wound on the posterior aspect of her heel and her right fifth toe. She was evaluated in the office today and found to have ischemia of the right lower extremity therefore her admission was arranged. 1. The patient will be admitted to M/S to Dr. Gunderson's service. 2. RLE ischemia. Nothing by mouth after midnight. Plan for right lower extremity angiogram 04/12/19. IV heparin drip per protocol. Admission labs pending including PT/INR/PTT/CBC/CMP. PTT every 6 hours per protocol. Coumadin on hold. MED REC PENDING AT THIS TIME. 3. PAD. Coumadin will be placed on hold. Admission CBC/INR pending. Heparin gtt as above. 4. ESRD. The patient states she had dialysis today. She states she has dialysis on Wednesday//Wednesday. Nephrology consulted for hemodialysis management. Vital Signs admission VS pending. Laboratory Data Labs 24H admission labs pending. Home Medications Scheduled Alprazolam (Xanax) 0.25 Mg Tab, 0.25 MG PO TID Cinacalcet HCl (Sensipar) 90 Mg Tab, 90 MG PO 3XW TAKES ON DIALYSIS DAYS //WED @ HS Docusate Sodium (Colace) 100 Mg Cap, 200 MG PO QHS Ferric Citrate (Auryxia) 210 Mg Tab, 420 MG PO WM Folic Acid (Folic Acid) 1 Mg Tab, 1 MG PO DAILY Gabapentin (Gabapentin) 300 Mg Cap, 300 MG PO TID Midodrine HCl (Midodrine HCl) 5 Mg Tablet, 5 MG PO 3XW , SAT Oxycodone Hcl (Oxycodone HCl) 20 Mg Tab, 20 MG PO TID Propranolol HCl (Propranolol HCl ER) 60 Mg Cap.sa.24h, 60 MG PO 3XW QHS ON , SAT Sodium Polystyrene Sulfonate (Sps 15 gm/60 ml Suspension) 15 Gm/60 Ml Susp, 15 GM PO ASDIRECTED TAKES IF SHE MISSES DIALYSIS Trazodone HCl (Trazodone HCl) 100 Mg Tab, 100 MG PO QHS Warfarin Sodium (Warfarin Sodium) 5 Mg Tablet, 5 MG PO 2XW QPM: WED & Warfarin Sodium (Warfarin Sodium) 2.5 Mg Tablet, 2.5 MG PO 5XW QPM: WED, , WED, WED, SAT Scheduled PRN Acetaminophen (Acetaminophen) 500 Mg Tab, 500 MG PO TID PRN for PAIN Lidocaine (Lidoderm) 5 % Dis, 1 PATCH TD DAILY PRN for PAIN APPLIES TO BACK Polyethylene Glycol 3350 (Miralax) 1 Pow Pow, 17 GM PO DAILY PRN for CONSTIPATION Allergies Coded Allergies: codeine (Verified Adverse Reaction, Mild, GI UPSET, 04/11/19) A-FIB/CHADSVASC A-FIB History Current/History of A-Fib/PAF?: No Laura Mcgee April 11, 2019 15:15
[2019-04-11 15:47] VITALS: BP 143/67
[2019-04-11 16:12] LABS: PARTIAL THROMBOPLASTIN TIME 42.1 SECONDS (25.4-37.6)
[2019-04-11 16:18] LABS: ALBUMIN 3.8 GM/DL (3.2-5.2); BILIRUBIN,TOTAL 0.6 MG/DL (0.2-1.0); CALCIUM LEVEL 9.6 MG/DL (8.5-10.1); CREATININE FOR GFR 5.57 MG/DL (0.55-1.30); GLOMERULAR FILTRATION RATE 8.6 (>51); POTASSIUM SERUM 4.8 MEQ/L (3.5-5.1); TOTAL PROTEIN 8.9 GM/DL (6.4-8.2)
[2019-04-11 16:30] LABS: HEMATOCRIT 39.2 % (36.0-47.0); HEMOGLOBIN 12.4 g/dl (12.0-15.5); MEAN CORPUSCULAR HEMOGLOBIN 31.7 pg (27.0-33.0); MEAN CORPUSCULAR HGB CONC 31.6 g/dl (32.0-36.5); MEAN CORPUSCULAR VOLUME 100.3 fl (80.0-96.0); PLATELET COUNT, AUTOMATED 125 10^3/uL (150-450); RED BLOOD COUNT 3.91 10^6/uL (4.00-5.40); WHITE BLOOD COUNT 7.3 10^3/uL (4.0-10.0)
[2019-04-11] MEDS ORDERED: HEPARIN SOD (PORCINE) 5000 UNITS/ML VIAL IV PRN (16:30)
[2019-04-11] MEDS ORDERED: HEPARIN SOD (PORCINE) 5000 UNITS/ML VIAL IV ONE (16:30)
[2019-04-11] MEDS ORDERED: WARF-18 PO (17:11)
[2019-04-11] MEDS ORDERED: WARF-23 PO (17:11)
[2019-04-11] MEDS ORDERED: MIDO5TA PO (17:13)
[2019-04-11] MEDS ORDERED: PROP60CA PO (17:13)
[2019-04-11] MEDS: HEPARIN DRIP 25,000 UNITS in APPROPRIATE DILUENT 1 EA IV SCH (17:52)
[2019-04-11 19:08] LABS: INR 1.82; PROTHROMBIN TIME 21.4 SECONDS (12.1-14.4)
[2019-04-11] MEDS ORDERED: MIRALAX *UNIT DOSE* 17GM PACKET PO PRN (20:15)
[2019-04-11] MEDS ORDERED: LIDOCAINE 5% (LIDODERM) PATCH TD PRN (20:15)
[2019-04-11] MEDS ORDERED: WARFARIN SOD 2.5 MG TAB PO SCH (20:15)
[2019-04-11] MEDS ORDERED: MIDODRINE 5 MG TAB PO SCH (20:15)
[2019-04-11] MEDS: ALPRAZolam 0.25 MG TAB PO SCH (20:56)
[2019-04-11] MEDS: GABAPENTIN 300 MG CAP PO SCH (20:56)
[2019-04-11] MEDS: ACETAMINOPHEN 500 MG TAB PO PRN (20:57)
[2019-04-11] MEDS: oxyCODONE 5MG TAB PO SCH (20:58)
[2019-04-11 21:00] VITALS: BP 89/56
[2019-04-11] MEDS ORDERED: CINACALCET 30 MG TAB (SENSIPAR) PO SCH (21:00)
[2019-04-11] MEDS ORDERED: DOCUSATE SODIUM 100 MG CAP PO SCH (21:00)
[2019-04-11] MEDS ORDERED: PROPRANOLOL 60 MG LA CAP PO SCH (21:00)
[2019-04-11 22:00] VITALS: BP 89/56
[2019-04-12] VITALS (9 sets, daily range): BP systolic 56–119; BP diastolic 28–70
[2019-04-12] MEDS: HEPARIN DRIP 25,000 UNITS in APPROPRIATE DILUENT 1 EA IV SCH (01:34)
[2019-04-12] MEDS: ACETAMINOPHEN 500 MG TAB PO PRN (05:38)
[2019-04-12 06:59] LABS: HEMATOCRIT 34.8 % (36.0-47.0); HEMOGLOBIN 11.1 g/dl (12.0-15.5); MEAN CORPUSCULAR HEMOGLOBIN 31.9 pg (27.0-33.0); MEAN CORPUSCULAR HGB CONC 31.9 g/dl (32.0-36.5); RED BLOOD COUNT 3.48 10^6/uL (4.00-5.40); WHITE BLOOD COUNT 4.9 10^3/uL (4.0-10.0)
[2019-04-12 07:16] LABS: PLATELET COUNT, AUTOMATED 96 10^3/uL (150-450)
[2019-04-12 07:35] LABS: ALBUMIN 3.1 GM/DL (3.2-5.2); BILIRUBIN,TOTAL 0.8 MG/DL (0.2-1.0); CALCIUM LEVEL 8.3 MG/DL (8.5-10.1); CREATININE FOR GFR 7.05 MG/DL (0.55-1.30); GLOMERULAR FILTRATION RATE 6.6 (>51); POTASSIUM SERUM 4.9 MEQ/L (3.5-5.1); TOTAL PROTEIN 7.8 GM/DL (6.4-8.2)
[2019-04-12] MEDS ORDERED: LIDOCAINE 5% (LIDODERM) PATCH TD PRN (08:00)
[2019-04-12] MEDS: ALPRAZolam 0.25 MG TAB PO SCH (08:55)
[2019-04-12] MEDS: GABAPENTIN 300 MG CAP PO SCH ×2 (08:56→16:50)
[2019-04-12] MEDS: oxyCODONE 5MG TAB PO SCH (08:56)
[2019-04-12] MEDS ORDERED: FOLIC ACID 1 MG TAB PO SCH (09:00)
[2019-04-12] MEDS ORDERED: PROTAMINE SULF INJ 50 MG/5 ML VIAL (J2720) As Ordered ONE (09:44)
[2019-04-12] MEDS ORDERED: diphenhydrAMINE INJ 50MG/ML VIAL (J1200) As Ordered ONE (09:44)
[2019-04-12] MEDS ORDERED: ISOVUE-300 61% 50ML VIAL (Q9967) As Ordered ONE (09:45)
[2019-04-12] MEDS ORDERED: LIDOCAINE 2% MDV 20 ML VIAL As Ordered ONE (09:45)
[2019-04-12] MEDS ORDERED: HEPARIN 1,000 UNITS/ML 10ML VIAL (FOR RADIOLOGY& DIALYSIS ONLY) As Ordered ONE (09:45)
[2019-04-12] MEDS ORDERED: BUPIVACAINE HCL 0.5% 10 ML VIAL As Ordered ONE (09:45)
[2019-04-12] MEDS ORDERED: fentaNYL 100 MCG/2 ML INJECTION (J3010) As Ordered ONE ×5 (10:03→12:11)
[2019-04-12] MEDS ORDERED: MIDAZOLAM INJ 2 MG/2 ML VIAL (J2250) As Ordered ONE ×4 (10:04→12:11)
[2019-04-12] MEDS ORDERED: ONDANSETRON 4MG/2ML VIAL (J2405) As Ordered ONE (11:17)
--- NOTE | 2019-04-12 11:45 | CR ---
DATE OF CONSULTATION: 04/12/2019 REQUESTING PHYSICIAN: Dr. Henrry Gunderson CONSULTING PHYSICIAN: Dr. You REASON FOR CONSULTATION: Management of end-stage renal disease on hemodialysis. CHIEF COMPLAINT: Patient presented to the hospital yesterday with severe uncontrolled right foot pain. HISTORY OF PRESENT ILLNESS: Perlita Zheng is a 48-year-old female with past medical history of end-stage renal disease on hemodialysis every Wednesday, , Wednesday. She was last dialyzed yesterday as outpatient according to her regular schedule. She has history of severe peripheral vascular disease, history of calciphylaxis in the past, history of angioplasty of the right leg in the past. She is chronically on opioids for pain. During dialysis yesterday, she was having severe pain. After finishing her dialysis she presented to the hospital because of intractable pain. She was seen by vascular surgery, and because of the severe pain and discoloration of the foot she was admitted under the surgical service and plan was made to do the repeat angiogram and possible stenting of the right lower extremity for ischemia. Nephrology service was called for further help in the management of this patient with end-stage renal disease on hemodialysis. I saw and evaluated the patient today morning in the angiography suite. She was getting ready to have the angiogram of the lower extremity done. She reports of persistent right lower extremity pain. Otherwise, she denies any active complaints. PAST MEDICAL HISTORY: Past medical history of end-stage renal disease on hemodialysis every Wednesday, , Wednesday, peripheral vascular disease, history of calciphylaxis in the past, hypertension, secondary hyperparathyroidism, history of anxiety, chronic hypotension, and a history of hypercoagulability and thrombosis of multiple fistula. PAST SURGICAL HISTORY: History of multiple arteriovenous (AV) graft and AV fistula placement, which were complicated by thrombosis. History of (C) section in the past, status post tonsillectomy, status post angiography of the lower extremities, and history of tunneled hemodialysis catheter placement. ALLERGIES: She is allergic to CODEINE. FAMILY HISTORY: No significant family history of end-stage renal disease requiring hemodialysis. SOCIAL HISTORY: The patient denies any smoking, alcohol or illicit drug abuse. She is chronically on opioid for pain secondary to peripheral vascular disease. REVIEW OF SYSTEMS: Constitutional: She denies any fevers and chills. Eyes: She denies any blurred vision, double vision. ENT: She denies any dysphagia, odynophagia, ear discharge. Cardiovascular: She denies any chest pain, palpitation. Respiratory: She denies any shortness of breath. Gastrointestinal (GI): She denies any nausea, vomiting. Genitourinary: She denies any dysuria or hematuria. Musculoskeletal: She reports severe pain in the right lower extremity, which is almost 10/10 in intensity. Central nervous system (LODE MINER): She denies any strokes or seizures. Skin: She denies any rashes. She does report discoloration of the right foot. Psychiatric: She does report history of anxiety. Endocrine: She has history of secondary hyperparathyroidism. All other review of system is negative. PHYSICAL EXAMINATION: General: The patient is awake, alert, oriented times three, laying in bed, in no apparent distress. Vital signs: Temperature is 97.9 degrees Fahrenheit. Blood pressure 119/70. Pulse is 63. Respiratory rate of 18, saturating 100% on room air. Head and neck exam: Extraocular muscles intact. Pupils equally round and reactive to light. Mucous membranes are moist. Neck is supple. There is no jugular venous distention (JVD). She has a tunneled hemodialysis catheter. Cardiovascular: S1, S2, regular rate. No edema of the lower extremities. Respiratory: Chest is clear to auscultation bilaterally. Bilateral equal air entry. No rales or rhonchi. Abdomen: Soft. Positive bowel sounds. Nontender. No organomegaly. Musculoskeletal: There is discoloration of the right foot toes. She has a small wound of the right 5th toe and right heel, and she has tenderness of the right lower extremity. LODE MINER: No focal deficit. Power is 5/5 in bilateral upper extremities. LAB REVIEW: Complete blood count (CBC) showed WBC 4.9, hemoglobin 11.1, platelets of 96. INR was 1.8 yesterday. Basic metabolic panel (BMP) showed sodium 136, potassium 4.9, chloride 99, bicarbonate 25, BUN 73, creatinine is 7, calcium 8.3, albumin is 3.1. CURRENT INPATIENT MEDICATIONS: The patient's medications were all reviewed by me. - She is on heparin drip at this point. - She is on Tylenol as needed. - Xanax 0.25 mg by mouth three times a day for anxiety - Sensipar 90 mg by mouth Wednesday, , Wednesday. - Colace 100 mg by mouth nightly - folic acid 1 mg daily - gabapentin 300 mg by mouth three times a day - midodrine 5 mg by mouth Wednesday, , Wednesday - oxycodone 20 mg p.o. three times a day - propranolol LA 60 mg by mouth .Wednesday, , Wednesday - warfarin 5 mg by mouth on Wednesday and and 2.5 mg rest of the days ASSESSMENT: 48-year-old female with past medical history of end-stage renal disease on hemodialysis, secondary hyperparathyroidism, peripheral vascular disease, admitted this time with lower extremity edema. PLAN: 1. End-stage renal disease on hemodialysis. The patient's regular dialysis days are Wednesday, , Wednesday. She was dialyzed yesterday according to regular schedule. No urgent need of hemodialysis today. She will be dialyzed tomorrow if she stays in the hospital after the procedure. 2. Right lower extremity Ischemia. The patient is currently on heparin drip. Pain is optimized with opioid medication. She is getting ready to have the right lower extremity angiogram done and possible stenting if needed. Rest of the management is as per surgical service. 3. Secondary hyperparathyroidism. Continue current dose of Sensipar 90 mg by mouth Wednesday, , Wednesday. 4. Chronic hypotension. The patient gets midodrine 5 mg by mouth Wednesday, , Wednesday to help with dialysis. 5. Chronic hypercoagulability. Continue current dose of warfarin. The patient is also on heparin at this point. 6. Anemia in end-stage renal disease. Hemoglobin is more than 11. No need of Aranesp administration at this point. 7. Generalized anxiety disorder. Continue home dose of alprazolam 0.25 mg by mouth three times a day. Thank you for involving me in the care of this patient. I shall be happy to follow the patient along with you tomorrow morning. ALEXD
[2019-04-12] MEDS ORDERED: MORPHINE 10 MG/ML 1ML VIAL (J2270) As Ordered ONE (12:40)
--- NOTE | 2019-04-12 13:59 | REP ---
Clinical: Hypotension. Technique: Axial noncontrast images from the lung bases to the pubic symphysis with coronal and sagittal re-formations. Comparison: 08/15/2007 Findings: There is a large, 18.4 x 10.2 x 15.0 cm hematoma along the left mid to lower abdomen arising from the iliopsoas muscle with associated hemorrhagic stranding extending into the left pelvis. Liver, spleen, pancreas, gallbladder, and bilateral adrenal glands are normal. Kidneys appear completely atrophic with vascular calcifications and hypodensities consistent with cysts. The enteric system is without obstruction or acute inflammatory process. Normal terminal ileum and appendix identified in the right lower quadrant. Extensive atherosclerotic changes to the aorta and vasculature noted without aneurysm. Pelvis demonstrates collapsed bladder and age-appropriate uterus/adnexa with IUD in satisfactory position. Granulomatous calcifications noted throughout the surrounding subcutaneous tissues of the abdomen and pelvis. Musculoskeletal structures demonstrate age-related degenerative changes without focal osseous abnormality. Lung bases demonstrate trace basilar atelectasis. Impression: 1. Large hematoma along the left mid to lower abdomen arising from the iliopsoas muscle with hemorrhagic stranding extending into the left elio pelvis. 2. No further acute abdominopelvic pathology appreciated. Chronic findings as above. Electronically Signed by Viet Madrigal MD 04/12/2019 01:51 P
[2019-04-12 15:49] LABS: HEMATOCRIT 21.2 % (36.0-47.0); MEAN CORPUSCULAR HEMOGLOBIN 31.1 pg (27.0-33.0); MEAN CORPUSCULAR HGB CONC 30.7 g/dl (32.0-36.5); MEAN CORPUSCULAR VOLUME 101.4 fl (80.0-96.0); PLATELET COUNT, AUTOMATED 116 10^3/uL (150-450); RED BLOOD COUNT 2.09 10^6/uL (4.00-5.40); WHITE BLOOD COUNT 12.3 10^3/uL (4.0-10.0)
[2019-04-12] MEDS ORDERED: NS 1,000 ML IV ONE (16:00)
[2019-04-12 16:08] LABS: CALCIUM LEVEL 6.8 MG/DL (8.5-10.1); CREATININE FOR GFR 7.07 MG/DL (0.55-1.30); GLOMERULAR FILTRATION RATE 6.5 (>51)
[2019-04-12 16:11] LABS: HEMOGLOBIN 6.5 g/dl (12.0-15.5)
[2019-04-12] MEDS ORDERED: ROCURONIUM BROMIDE 50 MG/5 ML VIAL IV STA (16:40)
[2019-04-12] MEDS ORDERED: NOREPINEPHRINE 4 MG/4 ML AMP As Ordered ONE (16:43)
[2019-04-12] MEDS ORDERED: ROCURONIUM BROMIDE 50 MG/5 ML VIAL As Ordered ONE (16:44)
[2019-04-12] MEDS ORDERED: ETOMIDATE INJ 20MG/10ML VIAL As Ordered ONE (16:44)
[2019-04-12] MEDS ORDERED: CALCIUM CHLORIDE 10% 1 GM/10 ML SYR As Ordered ONE ×2 (16:50→17:36)
[2019-04-12] MEDS ORDERED: fentaNYL 100 MCG/2 ML INJECTION (J3010) IV PRN (17:00)
[2019-04-12] MEDS ORDERED: MIDAZOLAM INJ 2 MG/2 ML VIAL (J2250) IV PRN (17:00)
[2019-04-12] MEDS ORDERED: VASOPRESSIN INJ 20 UNITS/ML VIAL As Ordered ONE (17:05)
[2019-04-12] MEDS ORDERED: CALCIUM GLUCONATE 1,000MG/10ML VIAL (100MG/ML) (J0610) As Ordered ONE (17:36)
[2019-04-12] MEDS ORDERED: NOREPINEPHRINE BITARTRATE 8 MG in D5W 492 ML IV SCH (18:00)
[2019-04-12 18:07] LABS: ALBUMIN 1.7 GM/DL (3.2-5.2); ALT/SGPT 8 U/L (12-78); BILIRUBIN,DIRECT < 0.1 MG/DL (0.0-0.2); BILIRUBIN,TOTAL 0.5 MG/DL (0.2-1.0); BLOOD UREA NITROGEN 35 MG/DL (7-18); CALCIUM LEVEL 6.4 MG/DL (8.5-10.1); CARBON DIOXIDE LEVEL 14 MEQ/L (21-32); CHLORIDE LEVEL 109 MEQ/L (98-107); CK-MB VALUE MASS < 1.0 NG/ML (<3.6); CPK CREATINE PHOSPHOKINASE 34 U/L (26-192); CREATININE FOR GFR 6.79 MG/DL (0.55-1.30); GLOMERULAR FILTRATION RATE 6.9 (>51); GLUCOSE, FASTING 314 MG/DL (70-100); MB/CK RELATIVE INDEX 2.94 (< OR =4); POTASSIUM SERUM 6.4 MEQ/L (3.5-5.1); SODIUM LEVEL 141 MEQ/L (136-145); TOTAL PROTEIN 4.3 GM/DL (6.4-8.2); TROPONIN I < 0.02 NG/ML (< 0.10)
--- NOTE | 2019-04-12 18:31 | REP ---
Clinical: Cardiac arrest. Comparison: 04/12/2019 at 05:44 p.m. Findings: Endotracheal tube 1.7 cm above the octaviano. Double-lumen central venous catheter with tip in the right atrium. Right chest tube extends towards the mediastinum. Perihilar and infrahilar opacities (left greater than right) are suggested. No obvious pneumothorax. No obvious effusion. Subcutaneous emphysema along the right lateral chest wall consistent with chest tube placement. Impression: Acute versus chronic perihilar and infrahilar infiltrates cannot be excluded. Lines and tubes as above. Electronically Signed by Viet Madrigal MD 04/12/2019 06:22 P
--- NOTE | 2019-04-12 18:34 | REP ---
Clinical: S post chest tube placement. Comparison: 04/12/2019 at 05:19 p.m. Findings: Endotracheal tube 1.8 cm above the octaviano. Double-lumen central venous catheter with tip in the right atrium. Right chest tube along the peripheral aspect of the right mid lung zone. Associated subcutaneous emphysema along the right lateral chest wall noted. Perihilar and infrahilar opacities are suggested. No obvious pneumothorax. No obvious effusion. Impression: Bilateral perihilar and infrahilar infiltrates. Lines and tubes as described above. No obvious pneumothorax. Electronically Signed by Viet Madrigal MD 04/12/2019 06:25 P
--- NOTE | 2019-04-12 18:36 | REP ---
Clinical: Shortness of breath. Comparison: None. Findings: Endotracheal tube approximately 2.5 cm above the octaviano. Double-lumen central venous catheter with tip in the right atrium. Lung pedraza demonstrate diffuse chronic interstitial changes and suspected bronchiectasis. Subtle perihilar and left lower lobe infiltrates cannot be excluded. No effusion. No pneumothorax. Subcutaneous emphysema along the right lateral chest wall. No obvious pneumothorax identified. Impression: 1. Subcutaneous emphysema along the right lateral chest wall of uncertain etiology. No obvious pneumothorax. 2. Endotracheal tube in satisfactory position. 3. Chronic pulmonary parenchymal changes and bronchiectasis. Superimposed perihilar and left lower lobe infiltrates cannot be excluded. Electronically Signed by Viet Madrigal MD 04/12/2019 06:28 P
--- NOTE | 2019-04-12 18:50 | RO ---
DATE OF PROCEDURE: 04/12/2019 I was brought to the patient's bedside by the vascular surgeon and ICU nurse for concern for respiratory decline. The patient had an unmeasurable pulse oximetry, was started to become hypotensive, had recently complained of angina, then had some altered mental status. When I got to the room the patient would respond minimally to painful stimuli; would not open her eyes spontaneously. Pupils were pinpoint. She would not follow commands. Because of her cardiovascular stress it was determined that she should be intubated. Therefore I placed an endotracheal tube under RSI. PREPROCEDURE DIAGNOSIS: Respiratory distress. POSTPROCEDURE DIAGNOSIS: Respiratory distress. PROCEDURE: Endotracheal intubation. PROCEDURIST: Slava Smith DO ORACLE ETL DEVELOPER: None. ANESTHESIA: 20 of etomidate, 50 of rocuronium. DESCRIPTION OF PROCEDURE After the patient was placed in the sniffing position, the patient was preoxygenated. At that point in time, pulse oximetry was not measuring any reading, but the patient continued to have some blood pressure and heart rate. RSI was initiated. The patient was easily intubated with a grade 1 view. 8.0 endotracheal tube was easily passed through the vocal cords and into the airway with a 4.0 GlideScope. The cuff was inflated after the stylus was removed and placement was confirmed via auscultation and tidal CO2 and chest x-ray. There were no observed complications from the intubation.
--- NOTE | 2019-04-12 19:06 | CCN ---
DATE: 04/12/2019 CRITICAL CARE TIME: 1 hour and 15 minutes. This excludes all procedures. Please refer to my endotracheal intubation note. On my arrival as requested by the vascular surgeon and ICU nurse, the patient was in distress, hypotensive, not breathing well. I therefore intubated the patient. After intubation, assessment was being performed. The patient had bilateral breath sounds. Had a pulse. The patient continued to have bloody bowel movements and on abdominal ct report had a retroperitoneal bleed with recent vascular stent placement for PVD. She had hypotension with blood pressures of 60 systolic. We gave unmatched blood along with starting Levophed through a dialysis port. Eventually the patient went into PEA arrest for the first time at 1659. CPR was initiated. The patient received epinephrine, bicarb calcium because of her recent hypercarbia. She was also receiving blood and normal saline at that time. The patient was in PEA until approximately 1711 when we had a wide complex rhythm with a pulse. We ordered an EKG which showed a wide complex sinus tachycardia with ST abnormalities and ST elevation. At 1718 was placed on mechanical ventilation and had a measurable blood pressure of 103/53. Chest x-ray was performed prior to the next arrest. It was found that there was some subcutaneous air but no evidence of pneumothorax. Because of the subcu air and the cardiopulmonary resuscitation, there was concern for pneumothorax. Therefore I placed a chest tube on the right. There was no subcutaneous air on the left. The patient then started to primo and have hypotension again. Epinephrine was again administered and soon the patient went into PEA arrest for the second time; had CPR initiated again. Given amp of bicarb along with epinephrine, again calcium chloride. The patient remained in PEA, had faint pulses in between, eventually the code was called due to no return, no spontaneous circulation at 1757. During one episode there was a wide complex tachycardia arrhythmia that looked like V-tach, therefore the patient was shocked. The patient then had a return of rhythm, but then went again into PEA and the code was eventually called at 1757. The patient's family was alerted and kept informed by the vascular surgeon. GUILLAUME
--- NOTE | 2019-04-12 19:12 | RO ---
DATE OF PROCEDURE: 04/12/2019 PREPROCEDURE DIAGNOSIS: Pneumothorax. POSTPROCEDURE DIAGNOSIS: Pneumothorax. PROCEDURE Right-sided chest tube done during a break in CPR. After CPR chest x-ray was performed there was subcutaneous air on the right. Therefore given the fact she was on mechanical ventilation, the best option was to place a chest tube. Chest tube was placed fairly quickly just over the fifth rib. PROCEDURIST: Slava Smith DO FILTER MACHINE OPERATOR: None ANESTHESIA: Patient was comatose. No anesthesia was required. DESCRIPTION OF PROCEDURE The skin was prepped and draped with chlorhexidine and sterile drapes. A titus in the skin was made above the fifth rib. I then dissected down above the 5th rib with forceps. I then popped through into the pleural space over the fifth rib with forceps. A 32 chest tube was then placed into the pleural space and sutured in place. This was connected to a Pleur-Evac at 20 meters of water pressure. This was sutured in. Chest x-ray eventually performed showed excellent placement. There were no observed complications. [facility]ITALRox[facility]
[2019-04-12] MEDS ORDERED: ETOMIDATE INJ 20MG/10ML VIAL IV STA (19:50)
[2019-04-12] MEDS ORDERED: SODIUM BICARBONATE 8.4% INJ 50 ML SYRINGE ONE (20:59)
[2019-04-12] MEDS ORDERED: ATROPINE SULF 1MG/10ML SYRINGE (J0461) ONE (20:59)
[2019-04-12] MEDS ORDERED: EPINEPHrine 1MG/10ML SYRINGE 1.5IN ONE (20:59)
[2019-04-12] MEDS ORDERED: CALCIUM CHLORIDE 10% 1 GM/10 ML SYR ONE (20:59)
[2019-04-12] MEDS ORDERED: **NOTE PATIENT COMMENT** MISC XX SCH (21:00)
[2019-04-13] MEDS ORDERED: WARFARIN SOD 5 MG TAB PO SCH (17:00)
--- NOTE | 2019-04-13 21:49 | ECGEPIP ---
[facility] Test Date: 2019-04-12 Pat Name: FLORENTIN BAL Department: Room: [place] [address] Gender: Female Family Consumer Scientist: : 1970 Requested By: SHELLIE Cobb Order Number: [id number] Reading MD: Moses Penny Measurements Intervals [place] Rate: 68 P: 9 VA: 209 QRS: 117 QRSD: 132 T: 14 QT: 460 QTc: 490 Interpretive Statements SINUS RHYTHM RIGHT BUNDLE BRANCH BLOCK LEFT POSTERIOR FASCICULAR BLOCK Electronically Signed on 04-13-2019 21:48:59 EDT by Moses Penny
--- NOTE | 2019-04-13 21:49 | ECGEPIP ---
[facility] Test Date: 2019-04-12 Pat Name: FLORENTIN BAL Department: Room: [place] [address] Gender: Female [employer] Sewer: : 1970 Requested By: Yash Bright Order Number: [id number] Reading MD: Moses Penny Measurements Intervals [place] Rate: 61 P: 1 NE: 233 QRS: 102 QRSD: 129 T: 52 QT: 497 QTc: 501 Interpretive Statements SINUS RHYTHM WITH FIRST DEGREE AV BLOCK MARKED RIGHT AXIS DEVIATION Right bundle-branch block with left posterior fascicular block Electronically Signed on 04-13-2019 21:48:45 EDT by Moses Penny
--- NOTE | 2019-04-13 21:55 | ECGEPIP ---
[facility] Test Date: 2019-04-12 Pat Name: FLORENTIN BAL Department: Room: [place] [address] Gender: Female Online Community Manager: : 1970 Requested By: SHELLIE Cobb Order Number: [id number] Reading MD: Moses Penny Measurements Intervals [place] Rate: 78 P: CA: -1 QRS: 98 QRSD: 181 T: QT: 388 QTc: 443 Interpretive Statements Accelerated Idioventricular rhythm, heart rate 78 bpm. Rhythm change compared with 04/12/2019 at 1553. Electronically Signed on 04-13-2019 21:55:35 EDT by Moses Penny
--- NOTE | 2019-04-21 13:57 | DSES ---
DATE OF ADMISSION: 04/11/2019 DATE OF DISCHARGE: 04/12/2019 Admitting diagnosis: Hemorrhagic disorder secondary to extrinsic circulating anticoagulants, retroperitoneal hematoma, bloody bowel movements, acute posthemorrhagic anemia, gastrointestinal hemorrhage unspecified, hemorrhagic shock, coronary artery disease. Discharge diagnosis:Hemorrhagic disorder secondary to extrinsic circulating anticoagulants, retroperitoneal hematoma, bloody bowel movements, acute posthemorrhagic anemia, gastrointestinal hemorrhage unspecified, hemorrhagic shock, coronary artery disease. Acute myocardial infarction PROCEDURES PERFORMED DURING HOSPITALIZATION: Bilateral lower extremity angiography with angioplasty and stenting. HOSPITAL COURSE: The patient was admitted directly from the office on 04/11/2019 and started on heparin drip due to severe limb threatening ischemia in the right lower extremity, as well as ischemia in the left lower extremity. The patient underwent an angiogram with intervention on 04/12/2019 requiring intervention in both lower extremities. The patient developed a retroperitoneal hematoma post procedure and was transferred to the intensive care unit (ICU) where she started complaining of extreme substernal chest pain and pressure. The patient was being treated when she went into cardiac arrest and multiple attempts at resuscitation were made with the patient and after discussing with the family the poor prognosis and inability to fully resuscitate the patient, the patient was pronounced . The daughter was asked if she requested a postmortem evaluation, which she denied. The patient had severe underlying medical comorbidities with a history of noncompliance. Attempts at resuscitation were performed but due to the rupture peroneal hematoma and hypotension along with probable gastrointestinal bleeding the patient developed acute coronary syndrome and had signs of myocardial infarction with crushing changes chest pain. GUILLAUME
--- NOTE | 2019-04-22 15:17 | REPIR ---
DATE OF PROCEDURE: 04/12/2019 PREOPERATIVE DIAGNOSES: Limb threatening ischemia, bilateral lower extremities end-stage renal disease. POSTOPERATIVE DIAGNOSES: Limb threatening ischemia, bilateral lower extremities end-stage renal disease. PROCEDURE: Aortogram, iliofemoral angiogram, bilateral lower extremity angiography, bilateral superficial femoral artery (SFA) angioplasty and stent. SURGEON: Dr. Erickson Gunderson. BOWLING FLOOR MANAGER: Lily Ambriz and Falguni Owens. ANESTHESIA: Local with sedation ESTIMATED BLOOD LOSS: Minimal. IV FLUIDS: 150 mL. HEPARIN: None. COMPLICATIONS: None. DRAINS: None. SPECIMENS: None. IMPLANTS: None. INDICATION: The patient is a 48-year-old female with severe atherosclerotic arterial occlusive disease who has undergone previous angioplasty of her lower extremities due to atherosclerotic occlusive disease and now presents with dependent rubor are and ischemia of the bilateral lower extremities. The patient will undergo an angiogram with possible angioplasty and/or stent. DESCRIPTION OF PROCEDURE: The patient was taken to the angiography suite, placed supine on the angiography table and prepped and then draped in a standard surgical fashion. The left common femoral artery was cannulated with a micropuncture needle. A catheter was placed up and over the bifurcation and a right lower extremity angiogram was performed showing severe disease along the course of the superficial femoral and popliteal artery. This underwent angioplasty and stenting with a 7 x 120 Merline drug-eluting stent postdilated with 6 x 200 balloon. During the procedure, the patient was complaining of left lower extremity pain and an left lower extremity angiogram was performed showing high grade stenosis in the common femoral superficial femoral artery junction. The right common femoral artery was then cannulated, the catheter brought up and over the left common femoral artery was angioplasty with a 6 x 200. The left superficial femoral artery was angioplasty with 6 x 200. A completion angiogram showed resolution of the stenosis. The sheaths were removed and MYNX closure device was used close the arteriotomies in the right and left common femoral artery with an additional 10 minutes of adjunctive pressure applied for hemostasis. Dressings were then applied. The patient tolerated procedure well. All instrument, sponge, needle counts were correct at the end of the case. There were no complications. Dr. Gunderson was present for directed the entire case. The patient was transferred holding and subsequent to the intensive care unit (ICU) in critical condition.
== END 2019-04-12 21:00 | disposition expired | DRG 252 ==
LOC: M MS5PR 15:27 → M ICU 04-12 14:15
PROVIDERS: ADMIT Surgery Vascular Surgery; ATTEND Surgery Vascular Surgery
PROC: [UNRECOGNIZED PROCEDURE] (principal; 2019-04-12)
PROC: 047K34Z Dilation of Right Femoral Artery with Drug-eluting Intraluminal Device, Percutaneous Approach (ICD-10-PCS; 2019-04-12)
PROC: 0BH17EZ Insertion of Endotracheal Airway into Trachea, Via Natural or Artificial Opening (ICD-10-PCS; 2019-04-12)
PROC: 0W9930Z Drainage of Right Pleural Cavity with Drainage Device, Percutaneous Approach (ICD-10-PCS; 2019-04-12)
DX: I70.293 Other atherosclerosis of native arteries of extremities, bilateral legs (principal); N18.6 End stage renal disease; R40.20 Unspecified coma; I21.A1 Myocardial infarction type 2; I97.121 Postprocedural cardiac arrest following other surgery; I12.0 Hypertensive chronic kidney disease with stage 5 chronic kidney disease or end stage renal disease; N25.81 Secondary hyperparathyroidism of renal origin; D68.69 Other thrombophilia; I47.2 Ventricular tachycardia; D68.32 Hemorrhagic disorder due to extrinsic circulating anticoagulants; D62 Acute posthemorrhagic anemia; K92.2 Gastrointestinal hemorrhage, unspecified; I97.638 Postprocedural hematoma of a circulatory system organ or structure following other circulatory system procedure; I97.191 Other postprocedural cardiac functional disturbances following other surgery; R57.8 Other shock; I46.9 Cardiac arrest, cause unspecified; R26.81 Unsteadiness on feet; R06.03 Acute respiratory distress; I95.89 Other hypotension; F41.1 Generalized anxiety disorder; D63.1 Anemia in chronic kidney disease; Z99.2 Dependence on renal dialysis; Z79.01 Long term (current) use of anticoagulants; Z79.891 Long term (current) use of opiate analgesic; Z79.899 Other long term (current) drug therapy; Z88.5 Allergy status to narcotic agent; Z86.718 Personal history of other venous thrombosis and embolism; Z91.14 Patient's other noncompliance with medication regimen